=== PATIENT | female | born 1970 | race Caucasian/White ===

== ENCOUNTER 2022-03-07 13:39 | Inpatient (IN) ==
--- NOTE | 2022-03-07 13:58 | Emergency Department Note ---
Impression & Plan CHF (congestive heart failure), Pleural effusion, Acute respiratory failure with hypoxia, Hypertensive urgency ED Provider Note NAME: SIERRA DELCID AGE: 51 SEX: F : 1970 ARRIVES VIA: Walk-In INFORMANT: Patient ED PROVIDER(S): Sean Paz DO CHIEF COMPLAINT: shortness of breath HPI: Patient is a 51-year-old female who presents the ER referred in by cardiology. She was discharged from [place] around January 19 status post type a aortic dissection. She has been having a cough and shortness of breath which has been getting worse for the past 3 days. She had an echo scheduled today which was performed as an outpatient as well as a chest x-ray by cardiology which showed large pleural effusions and was referred in. She denies any chest pain at this time. Shortness of breath is worse with exertion. Denies any belly pain, nausea, vomiting, or diarrhea. No dysuria, urgency, or frequency. No other exacerbating or remitting factors. ROS: See above HPI for pertinent positives & negatives. A total of 10 systems reviewed and were otherwise negative. PAST MEDICAL HISTORY:See Below PAST SURGICAL HISTORY:See Below FAMILY HISTORY:See Below SOCIAL HISTORY:See Below HOME MEDICATIONS:See Below ALLERGIES:See Below VITALS:See Below PHYSICAL EXAMINATION: GENERAL: Sitting up in bed, alert, well appearing, well nourished, no distress, non-toxic EYE EXAM: normal conjunctiva. OROPHARYNX: mucous membranes are moist NECK: supple, no nuchal rigidity, no adenopathy, non-tender LUNGS: Diminished bilaterally. Normal chest wall mechanics HEART: no murmurs, S1 normal and S2 normal ABDOMEN: abdomen soft, non-tender, normo-active bowel sounds, no masses, no rebound or guarding. UPPER EXTREMITIES: upper extremities are grossly normal. LOWER EXTREMITIES: Mild pitting edema in the bilateral lower extremities left larger than right NEURO EXAM: Normal sensorium, cranial nerves II-XII grossly intact, normal speech, no gross weakness of arms, no gross weakness of legs. MEDICAL DECISION MAKING: Patient is a 51-year-old female with a recent dissection who presents the ER referred in by cardiology for bilateral pleural effusions and shortness of breath. Labs show no significant leukocytosis or anemia. INR was unremarkable. BMP with mild hypokalemia 3.3. LFTs bilirubin was unremarkable. Troponin was elevated at 14. Lipase was normal. COVID was negative. Chest x-ray shows bilateral pleural effusions. Left was significantly larger than the right. Patient was placed on Nitropaste and admitted to the hospital. Systolic pressures trended down to the 160s and 170s. Triage Nursing notes reviewed. Limited review of prior medical records performed Vital Signs: reviewed and remarkable for HTN Differential diagnosis: Differential diagnoses includes but is not limited to pneumonia, bronchitis, COPD/Asthma exacerbation, pneumothorax, pulmonary embolism, congestive heart failure, acute coronary syndrome ER treatment provided: See below Diagnostics interpreted by me: ECG: Sinus rhythm rate of 78 Right axis Septal Q waves QTC 396 In comparison to EKG performed in December septal Q waves are now present Cardiac Monitoring: An order was placed for continuous cardiac monitoring. The monitor shows a rate of 72 with sinus rhythm. Laboratory studies: As stated above and show below. Imaging studies: Bilateral pleural effusions Consultation(s): Discussed with Vijaya from [facility] Procedures: none Critical Care: None Past Med/Surg History Medical History (Updated 03/07/22 @ 20:50 by Sean Paz DO) Abdominal pain Acute otitis media Diverticular disease Hypertension Hypokalemia Hypothyroidism Hypothyroidism Kidney stones hx Morbid obesity with BMI of 40.0-44.9, adult Surgical History History of section History of colonoscopy History of dilatation and curettage History of hysterectomy History of oral surgery gum removal History of wisdom tooth extraction Family History Other Family history not known due to adoption Social History Smoking Status: Never smoker Tobacco Type: Cigarettes Second Hand Exposure: No; Hx Alcohol Use: No Hx Substance Use: No Preferred Language: Pashto Communication Ability: Effective 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 Machine 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: No Beliefs That Will Affect Care: None Current Living Situation: Spouse Current Living Situation Comment: Lives with and daughter Feels Safe at Home: Yes Assistive Devices: None Allergies Allergies Allergy/AdvReac Type Severity Reaction Status Date / Time No Known Allergies Allergy Unknown Verified 03/07/22 15:07 Home Meds Home Medications Medication Instructions Recorded Confirmed levothyroxine 125 mcg tablet 125 mcg PO QAM 11/10/18 03/07/22 levothyroxine 150 mcg tablet 150 mcg PO [facility] 11/10/18 03/07/22 lisinopril 10 mg tablet 10 mg PO [facility] 11/10/18 03/07/22 albuterol sulfate 90 mcg/actuation 2 puff inhalation Q4 PRN Wheezing 03/07/22 03/07/22 aerosol inhaler amoxicillin 500 mg capsule 500 mg PO [facility] 03/07/22 03/07/22 aspirin 81 mg tablet,delayed 81 mg PO [facility] 03/07/22 03/07/22 release calcium carbonate 500 mg calcium 500 mg PO Q OTHER DAY 03/07/22 03/07/22 (1,250 mg) chewable tablet (Calcium 500) codeine 10 mg-guaifenesin 100 mg/5 5 ml PO Q4 PRN Cough 03/07/22 03/07/22 mL oral liquid fluticasone propionate 50 2 spray intranasal [facility] 03/07/22 03/07/22 mcg/actuation nasal spray,suspension metoprolol tartrate 25 mg tablet 25 mg PO [facility] 03/07/22 03/07/22 potassium chloride 10 mEq 20 meq PO [facility] 03/07/22 03/07/22 tablet,extended release(part/cryst) torsemide 20 mg tablet 20 mg PO [facility] 03/07/22 03/07/22 Results & Data (ED) Vital Signs Vital Signs - 24 hr 03/07/22 13:41 03/07/22 14:27 03/07/22 15:00 Temperature 36.6 C Temperature Source Temporal Artery Scan Pulse Rate 86 Pulse Rate [Apical] 76 77 Respiratory Rate 24 18 Respiratory Effort / Characteristics Non-Labored Non-Labored Spontaneous Respiratory Depth Normal Normal Respiratory Pattern Regular Blood Pressure 198/139 H Blood Pressure [Left Arm] 203/141 H 176/143 H Blood Pressure Mean 158 Blood Pressure Mean [Left Arm] 161 154 Pulse Oximetry 91 98 Oxygen Delivery Method Room Air Room Air Sepsis Recent Fever Within 48 Hours No Sepsis New/Unexplained Change in Mental Status N/A Sepsis Action Taken by Nursing No Action Required Laboratory Data Result diagrams: 03/07/22 15:26 03/07/22 15:26 Lab Results 03/07/22 03/07/22 03/07/22 Range/Units 14:20 15:26 15:26 WBC 7.34 (4.8-10.8) K/ul RBC 4.08 (3.93-5.22) M/uL Hgb 11.8 L (12.0-16.0) g/dl Hct 36.7 (34.1-44.9) % MCV 90.0 (80.0-100.0) fL MCH 28.9 (25.0-34.0) pg MCHC 32.2 (32.0-36.0) g/dL RDW Std Deviation 45.1 (36.4-46.3) fL RDW Coeff of Jacinto 13.8 (11.5-14.5) % Plt Count 266 (130-400) K/uL MPV 9.5 (9.4-12.3) fL Immature Gran % (Auto) 0.3 % Neut % (Auto) 58.0 % Lymph % (Auto) 30.7 % Alcorn % (Auto) 5.6 % Eos % (Auto) 4.2 % Baso % (Auto) 1.2 % Neut # (Auto) 4.26 (1.4-6.5) K/uL Lymph # (Auto) 2.25 (1.2-3.4) K/uL Alcorn # (Auto) 0.41 (0.24-0.82) K/uL Eos # (Auto) 0.31 (0-0.50) K/uL Baso # (Auto) 0.09 (0-0.2) K/uL Immature Gran # (Auto) 0.02 (0.00-0.02) K/uL PT (9.0-12.0) Seconds INR (0.9-1.1) APTT (21.0-31.0) Seconds PTT Ratio Sodium 141 (136-145) mmol/L Potassium 3.3 L (3.5-5.1) mmol/L Chloride 103 (98-107) mmol/L Carbon Dioxide 31 (21-32) mmol/L Anion Gap 7 (3-11) BUN 8 (6-23) mg/dl Creatinine 0.98 (0.6-1.2) mg/dl Est Cr Clr Drug Dosing 90.3 ml/min Est GFR ( Amer) 78.0 ml/min Est GFR (Non-Af Amer) 67.3 ml/min BUN/Creatinine Ratio 8.2 L (10-20) Glucose 87 (70-99(Fasting)) mg/dl Calcium 9.4 (8.5-10.1) mg/dl Magnesium (1.7-2.4) mg/dl Total Bilirubin 0.4 (0.2-1.0) mg/dl AST 17 (13-39) U/L ALT 9 (7-52) U/L Alkaline Phosphatase 75 (34-104) U/L Lactate Dehydrogenase (86-244) U/L Troponin I High Sens 14.4 H D (0-14) pg/ml Total Protein 7.1 (6.0-8.3) gm/dl Albumin 3.8 (3.4-5.0) gm/dl Globulin 3.3 (2.5-4.0) gm/dl Albumin/Globulin Ratio 1.2 (0.9-2) Lipase 18 (11-82) U/L SARS-CoV-2, RNA, NAAT NEGATIVE (NEGATIVE) 03/07/22 03/07/22 03/07/22 Range/Units 15:26 15:26 15:28 WBC (4.8-10.8) K/ul RBC (3.93-5.22) M/uL Hgb (12.0-16.0) g/dl Hct (34.1-44.9) % MCV (80.0-100.0) fL MCH (25.0-34.0) pg MCHC (32.0-36.0) g/dL RDW Std Deviation (36.4-46.3) fL RDW Coeff of Jacinto (11.5-14.5) % Plt Count (130-400) K/uL MPV (9.4-12.3) fL Immature Gran % (Auto) % Neut % (Auto) % Lymph % (Auto) % Alcorn % (Auto) % Eos % (Auto) % Baso % (Auto) % Neut # (Auto) (1.4-6.5) K/uL Lymph # (Auto) (1.2-3.4) K/uL Alcorn # (Auto) (0.24-0.82) K/uL Eos # (Auto) (0-0.50) K/uL Baso # (Auto) (0-0.2) K/uL Immature Gran # (Auto) (0.00-0.02) K/uL PT 11.5 (9.0-12.0) Seconds INR 1.1 (0.9-1.1) APTT 29.2 (21.0-31.0) Seconds PTT Ratio 1.1 Sodium (136-145) mmol/L Potassium (3.5-5.1) mmol/L Chloride (98-107) mmol/L Carbon Dioxide (21-32) mmol/L Anion Gap (3-11) BUN (6-23) mg/dl Creatinine (0.6-1.2) mg/dl Est Cr Clr Drug Dosing ml/min Est GFR ( Amer) ml/min Est GFR (Non-Af Amer) ml/min BUN/Creatinine Ratio (10-20) Glucose (70-99(Fasting)) mg/dl Calcium (8.5-10.1) mg/dl Magnesium 2.0 (1.7-2.4) mg/dl Total Bilirubin Cancelled (0.2-1.0) mg/dl AST (13-39) U/L ALT (7-52) U/L Alkaline Phosphatase (34-104) U/L Lactate Dehydrogenase 274 H (86-244) U/L Troponin I High Sens (0-14) pg/ml Total Protein Cancelled (6.0-8.3) gm/dl Albumin Cancelled (3.4-5.0) gm/dl Globulin (2.5-4.0) gm/dl Albumin/Globulin Ratio (0.9-2) Lipase (11-82) U/L SARS-CoV-2, RNA, NAAT (NEGATIVE) Administered Medications Discontinued Medications Labetalol HCl (Labetalol Hcl Iv 5 Mg/Ml 20ml) 20 mg IV NOW STA Stop: 03/07/22 16:53 Last Admin: 03/07/22 17:03 Dose: 20 mg Documented By: ASHLEY Co-signed By: ERICA Lisinopril (Lisinopril 10 Mg Tab) 10 mg PO NOW STA Stop: 03/07/22 16:06 Last Admin: 03/07/22 16:17 Dose: 10 mg Documented By: ASHLEY Metoprolol Tartrate (Metoprolol Tartrate 25 Mg Tab) 25 mg PO ONE ONE Stop: 03/07/22 16:00 Last Admin: 03/07/22 16:07 Dose: 25 mg Documented By: ASHLEY Nitroglycerin (Nitroglycerin 2% Ointment 30gm Tube) 2 inch EXT Q6H TODD Stop: 04/06/22 14:14 Last Admin: 03/07/22 14:17 Dose: 2 inch Documented By: OL Imaging Data Radiologist's Impression: Chest X-Ray 03/07/22 13:59 XR chest 1V portable CLINICAL HISTORY: Chest Pain. COMPARISON STUDY: 01/07/2022 TECHNIQUE: 1 view of the chest FINDINGS: Single frontal view of the chest demonstrates the heart to be enlarged status post interval cardiothoracic surgery. There has been interval development of a large left pleural effusion with left lower lobe and lingular atelectasis/collapse. The right hemithorax is clear with no right pleural effusion. There is no evidence for vascular congestion. There is no acute osseous pathology. IMPRESSION: 1. Status post cardiothoracic surgery with large left pleural effusion. 2. Associated left lower lobe and left lingular atelectasis/collapse. ACT 112: Negative or not required by law. Electronically signed by: Dayo Hester M.D. 03/07/2022 2:28 PM Discharge Plan Visit Data Chief Complaint: Referred by Doctor Stated Complaint: FLUID IN LUNGS ED Provider: Sean Paz Discharge Problem: CHF (congestive heart failure), Pleural effusion, Acute respiratory failure with hypoxia, Hypertensive urgency Patient Disposition: Admitted As Inpatient Discharge Instructions Interventions: ED Discharge Assessment Last Done: 03/07/22 18:18
[2022-03-07] MEDS ORDERED: NITROGLYCERIN 2% OINTMENT 30GM TUBE EXT SCH (14:15)
--- NOTE | 2022-03-07 14:29 | XRay Report ---
XR chest 1V portable CLINICAL HISTORY: Chest Pain. COMPARISON STUDY: 01/07/2022 TECHNIQUE: 1 view of the chest FINDINGS: Single frontal view of the chest demonstrates the heart to be enlarged status post interval cardiotho racic surgery. There has been interval development of a large left pleural effusion with left lower l obe and lingular atelectasis/collapse. The right hemithorax is clear with no right pleural effusion. There is no evidence for vascular congestion. There is no acute osseous pathology. IMPRESSION: 1. Status post cardiothoracic surgery with large left pleural effusion. 2. Associated left lower lobe and left lingular atelectasis/collapse. ACT 112: Negative or not required by law. Electronically signed by: Dayo Hester M.D. 03/07/2022 2:28 PM
[2022-03-07 15:36] LABS: Basophils # (auto) 0.09 K/uL (0-0.2); Basophils % (auto) 1.2 %; Eosinophils # (auto) 0.31 K/uL (0-0.50); Eosinophils % (auto) 4.2 %; Hematocrit (blood only) 36.7 % (34.1-44.9); Hemoglobin 11.8 g/dl (12.0-16.0); Immature Granulocytes # (auto) 0.02 K/uL (0.00-0.02); Immature Granulocytes % (auto) 0.3 %; Lymphocytes # (auto) 2.25 K/uL (1.2-3.4); Lymphocytes % (auto) 30.7 %; Mean Corpuscular Hemoglobin 28.9 pg (25.0-34.0); Mean Corpuscular Hgb Conc 32.2 g/dL (32.0-36.0); Mean Platelet Volume 9.5 fL (9.4-12.3); Monocytes # (auto) 0.41 K/uL (0.24-0.82); Monocytes % (auto) 5.6 %; Neutrophils # (auto) 4.26 K/uL (1.4-6.5); Platelet Count 266 K/uL (130-400); RDW Coefficient of Variation 13.8 % (11.5-14.5); RDW Standard Deviation 45.1 fL (36.4-46.3); Red Blood Count 4.08 M/uL (3.93-5.22); White Blood Count 7.34 K/ul (4.8-10.8)
--- NOTE | 2022-03-07 15:36 | History & Physical Report ---
Date of Service March 07, 2022 Assessment & Plan (1) Dissecting aneurysm of thoracic aorta, [place] type A: (2) Hypertensive urgency: (3) Pleural effusion: (4) Hypokalemia: (5) Acute otitis media: (6) Hypothyroidism: Plan Ms. Delores Watt is a 51 year old female who presented to the [facility] ED by the recommendation of Dr. Lilly who she saw for outpatient follow up today s/p AAA repair in [place] on 01/07. She was noted to have a large left pleural effusion and pericardial effusion on CXR. 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 Plan for thoracentesis and PCU admission. Hold diuretics to protect preload. Post op Aortic Dissection (01/07): -Transferred emergently to [place]; thoracic and aortic AAA including the arch repaired on 01/07/22; she was discharged on 01/19/22 -Was noted to have cough and SOB x 3 days; went to outpatient Cardiology for follow up and repeat ECHO today (03/07) -EF on ECHO 03/07 60-64% -Continue ASA 81 mg now -Consult Cardiology: Discussed with Dr. Le; hold on diuretics and no Nitro paste to protect Preload -Trend Troponins: Initial 69, second 14. -Mg+ level ordered and pending Pleural Effusion: -Repeat ECHO outpatient today revealed large left pleural effusion -Pulmonary consultation ordered: Discussed with Dr. Ward who evaluated and spoke with the patient; plan for bedside thoracentesis once BP more stable (currently 176/143). -Hgb holding 11.8 -Repeat CXR in AM HTN urgency: -B/P 178/129 on admission -Received AM Metoprolol and Lisinopril PO without improvement. -Labetalol 20 mg IV ordered once. Hypokalemia: -K+ 3.3 on admission; ordered Potassium 40mEq PO Once; will resume home meds in AM. -Takes Lasix at home; recently switched to Torsemide; however has not started taking it yet. -Diuretics on hold for now. Cardiology to reassess Hypothyroidism: Continue Synthroid as prescribed Acute Otitis Media: -Right ear. -Taking Amoxicillin 500 mg PO BID x 10 days; due to complete course 03/08. Disposition: -PCP: Dr. Jovel -Code Status: Full Code -VTE Prophylaxis: SCD's for now; reeval appropriateness post thoracentesis -Plan to return home post discharge -freezer person: Shin Watt: [phone] Admission and Anticipated Discharge Date Admission Date: Attending Addendum: care coordinated with SHAWN Love please refer to her notes for full details, I agree with her notes patient seen and examined, records reviewed by myself as well on exam, patient seen resting in bed, sitting up, on 4 L of oxygen via nasal cannula Not in distress, speaks in sentences with no effort accessory muscle use Denies active shortness of breath, chest pain, palpitations, dizziness no other symptoms VS noted and reviewed oriented x3, not in distress, speaks in sentences with no effort nor accessory muscle use normal rate, regular rhythm, no murmurs Decreased breath sounds left lung fonseca, clear on the right non distended, soft, nontender Trace bipedal edema, erythema, warmth no neuro deficits WBC 7.3 Hg 11.8 Potassium 3.3 Crea 0.9 ASSESSMENT AND PLAN 51-year-old female with history of recent thoracic arctic aneurysm repair last December 2021 at [facility], hypertension, obstructive sleep apnea Presenting with left pleural effusion and large pericardial effusion. Left pleural effusion, acute hypoxic respiratory failure Large pericardial effusion Recent thoracic aortic aneurysm repair January 07, 2022, [facility] -- Pulmonary service consulted for possible thoracentesis -- Blood pressure stable, echocardiogram no cardiac tamponade Hold off on usual torsemide or additional diuretics to prevent hypotension in the setting of large pericardial effusion Cardiology service consulted, will likely need pericardiocentesis other diagnoses and plan of care as per SHAWN Love's notes, Marques Jimenez MD History of Present Illness Chief Complaint: shortness of breath and swelling Primary Care Provider: Bronson Jovel MD Ms. Delores Watt is a 51 year old female who presented to the [facility] ED by the recommendation of Dr. Lilly who she saw for outpatient follow up today. She recently presented to the [facility] with syncope and was emergently transferred to [facility] for cardiac tamponade and thoracic and aortic AAA repair. Post-operatively she developed an ileus and required additional hospitalization, but was discharged on January 19, 2022. She has been doing well post-operatively and completed her PO Amiodarone. She started to have a cough and SOB over the last 3 days; she had a repeat ECHO today a large left pleural effusion and large pericardial effusion was noted. Her EF was 60-64% and no tamponade was noted . She has been having increasing difficulty with her fluid status and has not been responding to her Lasix as well as anticipated; so she was just switched to Torsemide a few days ago; however, has not started taking it yet. In the ED she is hypertensive 176/143 and 91% on RA. Additional PMH includes Hypothyroidism, AAA, HTN, and ANNABELLE. She currently denies BERGER, dizziness, CP, palpitations, SOB, use of accessory muscle use, pursed lip breathing, N/V/D. Case discussed as outlined above with ICU/Pulmonary Dr. Ward and Cardiology Dr. Le. Please see A/P for further details. Allergies Allergy/AdvReac Type Severity Reaction Status Date / Time No Known Allergies Allergy Unknown Verified 03/07/22 15:07 Home Medications Medication Instructions Recorded Confirmed Type levothyroxine 125 mcg tablet 125 mcg PO QAM 11/10/18 03/07/22 History levothyroxine 150 mcg tablet 150 mcg PO QAM 11/10/18 03/07/22 History lisinopril 10 mg tablet 10 mg PO QAM 11/10/18 03/07/22 History albuterol sulfate 90 mcg/actuation 2 puff inhalation Q4 PRN Wheezing 03/07/22 03/07/22 History aerosol inhaler amoxicillin 500 mg capsule 500 mg PO [facility] 03/07/22 03/07/22 History aspirin 81 mg tablet,delayed 81 mg PO QAM 03/07/22 03/07/22 History release calcium carbonate 500 mg calcium 500 mg PO Q OTHER DAY 03/07/22 03/07/22 History (1,250 mg) chewable tablet (Calcium 500) codeine 10 mg-guaifenesin 100 mg/5 5 ml PO Q4 PRN Cough 03/07/22 03/07/22 History mL oral liquid fluticasone propionate 50 2 spray intranasal [facility] 03/07/22 03/07/22 History mcg/actuation nasal spray,suspension metoprolol tartrate 25 mg tablet 25 mg PO [facility] 03/07/22 03/07/22 History potassium chloride 10 mEq 20 meq PO QAM 03/07/22 03/07/22 History tablet,extended release(part/cryst) torsemide 20 mg tablet 20 mg PO QAM 03/07/22 03/07/22 History Past Med/Surg History Medical History (Updated 03/07/22 @ 16:43 by SHAWN Zhou) Abdominal pain Acute otitis media Diverticular disease Hypertension Hypokalemia Hypothyroidism Hypothyroidism Kidney stones hx Morbid obesity with BMI of 40.0-44.9, adult Surgical History History of section History of colonoscopy History of dilatation and curettage History of hysterectomy History of oral surgery gum removal History of wisdom tooth extraction Family History Other Family history not known due to adoption Social History Smoking Status: Never smoker Tobacco Type: Cigarettes Second Hand Exposure: No; Hx Alcohol Use: No Hx Substance Use: No Preferred Language: Lao Communication Ability: Effective Conveyor Installer Required: No Beliefs That Will Affect Care: None Current Living Situation: Spouse Current Living Situation Comment: Lives with and daughter Feels Safe at Home: Yes Assistive Devices: None Review of Systems Review of Systems: Neuro: (-) Falls, trauma, slurred speech HEENT: (-) BERGER, dizziness, dysphagia, visual or auditory changes CV: (-) CP, palpitations, swelling (-) pursed lip or accessory muscle breathing Resp: (-) SOB GI: (-) appetite changes, N/V/D, bowel changes : (-) urinary changes Skin: (-) rashes Psych: (-) anxiety, depression Physical Exam Physical Exam: Neuro: AAOx4, PERRLA, no aphagia, memory changes, CNII-XII grossly intact HEENT: head normocephalic, moist mucus membranes CV: S1/S2, (-) M/G/R, (-) edema, cap refill < 3 seconds (-) JVD Resp: On 2 LNC; minimal movement left lung fonseca, right lung CTA. GI: Abdomen S/NT/ND, Ax4 bowel sounds, (-) CVA tenderness Musculoskeletal: 5/5 B/L UE strength, 5/5 B/L LE strength. No gait disturbance Skin: (-) rashes , (-) erythema. mid sternal incision Psych: euthymic mood Results & Data Results & Data ([facility]) Vital Signs (Past 12 Hours) Vital Signs Temp Pulse Pulse Resp BP BP Pulse Ox 03/07/22 15:00 77 18 176/143 H 98 03/07/22 14:27 76 203/141 H 03/07/22 13:41 36.6 C 86 24 198/139 H 91 O2 Del Method 03/07/22 15:00 Room Air 03/07/22 14:27 03/07/22 13:41 Room Air Laboratory Results Short CBC 03/07/22 Range/Units 15:26 WBC 7.34 (4.8-10.8) K/ul Hgb 11.8 L (12.0-16.0) g/dl Hct 36.7 (34.1-44.9) % Plt Count 266 (130-400) K/uL BMP 03/07/22 15:26 Sodium 141 Potassium 3.3 L Chloride 103 Carbon Dioxide 31 BUN 8 Creatinine 0.98 Glucose 87 Calcium 9.4 Liver Function 03/07/22 Range/Units 15:26 Total Bilirubin 0.4 (0.2-1.0) mg/dl AST 17 (13-39) U/L ALT 9 (7-52) U/L Alkaline Phosphatase 75 (34-104) U/L Albumin 3.8 (3.4-5.0) gm/dl Diagnostic Findings Chest X-Ray 03/07/22 13:59 XR chest 1V portable CLINICAL HISTORY: Chest Pain. COMPARISON STUDY: 01/07/2022 TECHNIQUE: 1 view of the chest FINDINGS: Single frontal view of the chest demonstrates the heart to be enlarged status post interval cardiothoracic surgery. There has been interval development of a large left pleural effusion with left lower lobe and lingular atelectasis/collapse. The right hemithorax is clear with no right pleural effusion. There is no evidence for vascular congestion. There is no acute osseous pathology. IMPRESSION: 1. Status post cardiothoracic surgery with large left pleural effusion. 2. Associated left lower lobe and left lingular atelectasis/collapse. ACT 112: Negative or not required by law. Electronically signed by: Dayo Hester M.D. 03/07/2022 2:28 PM ECG Additional Comments: 78 BPM P-R Int : 172 ms QRS Dur : 090 ms QT Int : 348 ms QTc Int : 396 ms Normal sinus rhythm Possible Left atrial enlargement Septal infarct , age undetermined Poor R wave progression, consider anterior [place] vs. lead placement vs. LVH Abnormal ECG Poor R wave progression is now present Code Status & VTE Plan Code Status Full code as discussed with pt VTE Prophylaxis Plan VTE Prophylaxis will be ordered: Yes
[2022-03-07 15:59] LABS: Albumin Globulin Ratio 1.2 (0.9-2); Albumin Level 3.8 gm/dl (3.4-5.0); BUN Creatinine Ratio 8.2 (10-20); Bilirubin,Total 0.4 mg/dl (0.2-1.0); Calcium 9.4 mg/dl (8.5-10.1); Creatinine Clr Calc Pharmacy 90.3 ml/min; Est GFR (Non-African American) 67.3 ml/min; Globulin 3.3 gm/dl (2.5-4.0); Potassium 3.3 mmol/L (3.5-5.1); Total Protein 7.1 gm/dl (6.0-8.3)
[2022-03-07] MEDS ORDERED: METOPROLOL TARTRATE 25 MG TAB PO ONE (15:59)
[2022-03-07 16:01] LABS: Troponin I High Sensitivity 14.4 pg/ml (0-14)
[2022-03-07] MEDS ORDERED: lisinopril 10 MG TAB PO STA (16:05)
--- NOTE | 2022-03-07 16:06 | Electrocardiogram Report ---
Test Reason : Blood Pressure : / mmHG Vent. Rate : 078 BPM Atrial Rate : 078 BPM P-R Int : 172 ms QRS Dur : 090 ms QT Int : 348 ms P-R-T Axes : 037 233 054 degrees QTc Int : 396 ms Poor data quality, interpretation may be adversely affected Normal sinus rhythm Possible Left atrial enlargement Septal infarct , age undetermined Poor R wave progression, consider anterior [place] vs. lead placement vs. LVH Abnormal ECG When compared with ECG of 07-JAN-2022 14:25, Poor R wave progression is now present Confirmed by Amilcar Taveras ([id number]) on 03/07/2022 4:06:18 PM Referred By: Shaquille Lilly Confirmed By:Amilcar Taveras
--- NOTE | 2022-03-07 16:16 | Pulmonary Consultation ---
Date of Consultation March 07, 2022 Assessment & Plan (1) Pleural effusion: (2) Acute respiratory failure with hypoxia: (3) ANNABELLE (obstructive sleep apnea): (4) Hypertensive urgency: Plan Chest x-ray 03/07/2022 personally reviewed: Portable film, large left-sided pleural effusion appreciated, increased cardiac silhouette -- Left-sided pleural effusion In a patient who recently had cardiothoracic surgery possibility of it being postcardiotomy pleural effusion is there Patient denies any fever or chills She is not on any blood thinners She is agreeable for thoracentesis -- Acute respiratory failure with hypoxia On 2 L nasal cannula Likely secondary to pleural effusion Keep O2 saturation between 90-92% -- ANNABELLE Patient is unable to tolerate CPAP Parts of compliance expanded the patient in depth --Hypertensive urgency Patient does not have any symptoms Her diastolic blood pressure is in 130s She did not take her blood pressure medications at home. Recommend to give home blood pressure medication and if there is no improvement to give IV labetalol 20 mg. Plan: For thoracentesis today once the blood pressure is better controlled Risk benefit of the procedure expanded the patient in the presence of her . They understand and agree to go ahead with the procedure Case was discussed with Ene Love Please note the above document was generated using voice recognition software. It may contain grammatical, syntax or spelling errors.Any formal questions or concerns about the content, text or information contained within the body of this dictation should be directly addressed to the provider for clarification. 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 Patient's blood pressure was 170/134. Saturating 97% on 2 L nasal cannula. Patient did not take her blood pressure medication today as she directly went to the service representative office in the morning. Patient denies any issues when it comes to her breathing. She has noticed some shortness of breath which has been going on since the surgery. She is unsure if there is any worsening in her breathing Denies any chest pain. Did have recent right ear infection has been on antibiotics for it. Denies any significant cough. No dysuria, diarrhea. No fever or chills. No headache, no blurry vision Social history: Lifetime non-smoker Allergies Allergy/AdvReac Type Severity Reaction Status Date / Time No Known Allergies Allergy Unknown Verified 03/07/22 15:07 Home Medications Medication Instructions Recorded Confirmed Type levothyroxine 125 mcg tablet 125 mcg PO QAM 11/10/18 03/07/22 History levothyroxine 150 mcg tablet 150 mcg PO QAM 11/10/18 03/07/22 History lisinopril 10 mg tablet 10 mg PO QAM 11/10/18 03/07/22 History albuterol sulfate 90 mcg/actuation 2 puff inhalation Q4 PRN Wheezing 03/07/22 03/07/22 History aerosol inhaler amoxicillin 500 mg capsule 500 mg PO AMHS 03/07/22 03/07/22 History aspirin 81 mg tablet,delayed 81 mg PO QA 03/07/22 03/07/22 History release calcium carbonate 500 mg calcium 500 mg PO Q OTHER DAY 03/07/22 03/07/22 History (1,250 mg) chewable tablet (Calcium 500) codeine 10 mg-guaifenesin 100 mg/5 5 ml PO Q4 PRN Cough 03/07/22 03/07/22 History mL oral liquid fluticasone propionate 50 2 spray intranasal [facility] 03/07/22 03/07/22 History mcg/actuation nasal spray,suspension metoprolol tartrate 25 mg tablet 25 mg PO [facility] 03/07/22 03/07/22 History potassium chloride 10 mEq 20 meq PO QAM 03/07/22 03/07/22 History tablet,extended release(part/cryst) torsemide 20 mg tablet 20 mg PO QAM 03/07/22 03/07/22 History Patient History Medical History Abdominal pain Diverticular disease Hypertension Hypothyroidism Kidney stones hx Morbid obesity with BMI of 40.0-44.9, adult Surgical History History of section History of colonoscopy History of dilatation and curettage History of hysterectomy History of oral surgery gum removal History of wisdom tooth extraction Family History Other Family history not known due to adoption Social History Smoking Status: Former smoker Tobacco Type: Cigarettes Second Hand Exposure: No; Hx Alcohol Use: Yes Alcohol type: wine Hx Substance Use: No Preferred Language: Malawian Communication Ability: Effective Strategy Director Required: No Beliefs That Will Affect Care: None Current Living Situation: Spouse and Family Current Living Situation Comment: Lives with and daughter Feels Safe at Home: Yes Assistive Devices: Glasses Review of Systems Review of Systems: All systems reviewed & are unremarkable except as noted in HPI & below Physical Exam Physical Exam: Constitutional: No acute distress HEENT: EOMI, PERRLA Respiratory system: Decreased air entry in the left side, no wheeze, no rhonchi, mild crackles left lower lobe CVS: S1-S2 positive, no murmurs or gallops, distant heart sounds Abdomen: Soft, nontender, nondistended, positive bowel sounds x4, obese Extremities: +2 pulses bilaterally radialis/ dorsalis pedis, no cyanosis, +1 pitting edema bilateral lower extremity Neuro: Awake alert oriented x3 Psych: Normal mood and affect G/U: No Newman Results & Data Results & Data ([facility]) Vital Signs (Past 12 Hours) Vital Signs Temp Pulse Pulse Resp BP BP Pulse Ox 03/07/22 15:00 77 18 176/143 H 98 03/07/22 14:27 76 203/141 H 03/07/22 13:41 36.6 C 86 24 198/139 H 91 O2 Del Method 03/07/22 15:00 Room Air 03/07/22 14:27 03/07/22 13:41 Room Air Laboratory Results 03/07/22 15:26 03/07/22 15:26 PG Care Time/CCT Total # of Minutes Spent Total Time Spent with Patient: Total time spent is greater than 50% in coordination of care (as documented) at patient's floor/unit and/or counseling patient: Coding Level of Care Code 23720 Initial Inpt Care Lvl 3 Diagnoses Pleural effusion J90 Acute respiratory failure with hypoxia J96.01 ANNABELLE (obstructive sleep apnea) G47.33 Hypertensive urgency I16.0
[2022-03-07] MEDS ORDERED: LABETALOL HCL IV 5 MG/ML 20ML IV STA (16:52)
[2022-03-07 17:04] LABS: INR 1.1 (0.9-1.1); Partial Thromboplastin Ratio 1.1; Partial Thromboplastin Time 29.2 Seconds (21.0-31.0); Prothrombin Time 11.5 Seconds (9.0-12.0)
--- NOTE | 2022-03-07 18:36 | Procedure Note ---
Procedure Note Date of Service March 07, 2022 Note Procedure: Diagnostic therapeutic ultrasound-guided catheter thoracentesis Ordnance Mechanic: Dr. Flo Ward Indication: Left-sided pleural effusion Consent: Signed by patient and verified with timeout prior to procedure Anesthesia: 1% lidocaine without epinephrine local. Procedure: Consent was verified and timeout performed. Appropriate imaging studies were reviewed prior to the procedure. Patient was placed in a seated position and limited thoracic ultrasound was performed of the left chest. See separate imaging. Appropriate site above the diaphragm for thoracentesis was selected. The skin was prepped and draped in normal sterile fashion. Lidocaine was used for local analgesia. Fluid was aspirated via the finder needle. A small skin orestes was made with the scalpel and the catheter over the needle apparatus was advanced over the rib into the pleural space. Using the syringe one-way valve system, a total of 1500 mL's of serosanguineous fluid was removed. The catheter was removed and observed to be intact. A sterile dressing was applied. Post procedure chest x-ray was ordered. Good lung sliding was appreciated postprocedure on ultrasound Fluid was sent for labs, culture and cytology. Complications: None Blood loss: None Coding CPT Codes Pulmonary/Thoracic - Pulmonary and Thoracic: 28040 Thoracentesis w imaging ([id number]) [facility] [place] Procedure Codes (Charges) Pulmonary/Thoracic Procedure 1: Pulmonary and Thoracic: 92418 Thoracentesis w imaging
[2022-03-07] MEDS ORDERED: ALBUTEROL HFA 8 GM INHALER INH PRN (18:39)
[2022-03-07] MEDS ORDERED: POTASSIUM CHLORIDE CRTAB 20 MEQ TABCR PO STA (18:39)
[2022-03-07] MEDS ORDERED: ACETAMINOPHEN 325 MG TAB PO PRN (18:39)
[2022-03-07] MEDS ORDERED: MAGNESIUM HYDROXIDE SUSP 30 ML UDC PO PRN (18:39)
[2022-03-07] MEDS ORDERED: D5W AND 1/2NSS 1,000 ML IV SCH (18:39)
[2022-03-07] MEDS ORDERED: POLYETHYLENE (MIRALAX) 17 GM PACK PO PRN (18:39)
[2022-03-07] MEDS ORDERED: ONDANSETRON INJ 2 MG/ML 2 ML VIAL IV PRN (18:39)
[2022-03-07] MEDS ORDERED: ALUMINUM/MAGNESIUM SUSP 30 ML UDC PO PRN (18:39)
[2022-03-07] MEDS ORDERED: ICU PROTOCOL FOR HYPERGLYCEMIA PRN (18:39)
[2022-03-07 19:23] LABS: Total Protein Pleural Fluid 4.9 gm/dl
--- NOTE | 2022-03-07 19:29 | XRay Report ---
XR chest 1V portable at 7:05 PM CLINICAL HISTORY: S/P Thoracentesis. Evaluate for pneumothorax COMPARISON STUDY: 03/07/2022 at 2:21 PM TECHNIQUE: 1 view of the chest FINDINGS: Single frontal view of the chest demonstrates the heart to again be enlarged status post previous car diothoracic surgery. The patient is status post left thoracentesis with interval decrease in large le ft pleural effusion. There is persistent left lower lobe and lingular atelectasis. The right hemithorax is clear. There is no evidence for right pleural effusion. There is no evidence for vascular congestion. There is no acute osseous pathology. IMPRESSION: 1. Status post left thoracentesis with decreased left pleural effusion. 2. No evidence for pneumothorax. 3. Persistent left lower lobe and lingular atelectasis/collapse. ACT 112: Negative or not required by law. Electronically signed by: Dayo Hester M.D. 03/07/2022 7:27 PM
[2022-03-07 19:50] LABS: Appearance Pleural Fluid Cloudy; Color Pleural Fluid Amber; Lymphocytes, Fluid 89 %; Mono,Macrophage,Mesothelial 7 %; Neutrophils, Fluid 4 %; RBC Pleural Fluid (A) 27000 /uL; Source Pleural Fluid L.LUNG; WBC Pleural Fluid (A) 1494 /uL
[2022-03-07] MEDS: FLUTICASONE PROPIONATE NA SPR 16 GM BTL SCH (20:55)
[2022-03-07] MEDS: AMOXICILLIN 500 MG CAP PO SCH (21:01)
[2022-03-07] MEDS: ASPIRIN 81 MG ECTAB PO SCH (21:01)
[2022-03-07] MEDS: METOPROLOL TARTRATE 25 MG TAB PO SCH (21:02)
[2022-03-07] MEDS: CALCIUM CARBONATE 500 MG CHEWABLE TAB PO SCH (21:02)
[2022-03-08] MEDS: LEVOTHYROXINE SODIUM 125 MCG TABLET PO SCH (06:03)
[2022-03-08] MEDS: LEVOTHYROXINE SODIUM 150 MCG TABLET PO SCH (06:04)
[2022-03-08 07:06] LABS: Basophils # (auto) 0.08 K/uL (0-0.2); Basophils % (auto) 1.1 %; Eosinophils # (auto) 0.24 K/uL (0-0.50); Eosinophils % (auto) 3.3 %; Hematocrit (blood only) 33.1 % (34.1-44.9); Hemoglobin 10.3 g/dl (12.0-16.0); Immature Granulocytes # (auto) 0.02 K/uL (0.00-0.02); Immature Granulocytes % (auto) 0.3 %; Lymphocytes # (auto) 1.83 K/uL (1.2-3.4); Lymphocytes % (auto) 25.2 %; Mean Corpuscular Hemoglobin 28.9 pg (25.0-34.0); Mean Corpuscular Hgb Conc 31.1 g/dL (32.0-36.0); Mean Platelet Volume 9.2 fL (9.4-12.3); Monocytes # (auto) 0.48 K/uL (0.24-0.82); Monocytes % (auto) 6.6 %; Neutrophils % (auto) 63.5 %; Platelet Count 221 K/uL (130-400); RDW Standard Deviation 47.8 fL (36.4-46.3); Red Blood Count 3.56 M/uL (3.93-5.22); White Blood Count 7.25 K/ul (4.8-10.8)
[2022-03-08 07:32] LABS: BUN Creatinine Ratio 10.2 (10-20); Calcium 9.1 mg/dl (8.5-10.1); Creatinine Clr Calc Pharmacy 73.8 ml/min; Est GFR (African American) 62.3 ml/min; Est GFR (Non-African American) 53.7 ml/min; Potassium 3.8 mmol/L (3.5-5.1)
--- NOTE | 2022-03-08 08:28 | Cardiology Consultation ---
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 We will then monitor for reaccumulation on telemetry. Also repeat echocardiogram in the a.m. to evaluate pericardial effusion status postthoracentesis to look for any possible hemodynamic changes She will also be started on colchicine and ibuprofen to aid in resolution of the pericardial effusion History of Present Illness Reason for Consultation: Pleural and pericardial effusions Requesting Physician: LILO Attending Physician: Wu Shepherd MD History of Present Illness Late entry for consultation performed 03/07/2022 at 1700 in the emergency department. Mrs. Watt is a very pleasant 51-year-old woman who was sent to the emergency department from our office today after echocardiogram and chest x-ray revealed large pericardial effusion and large left-sided pleural effusion.She initially presented to [facility] on January 07, 2022 with a spontaneous [place] type a dissection of her ascending aorta complicated by hemopericardium and hypotension. She was emergently transferred to [facility] where she underwent emergent cardiac surgery with replacement of the ascending aorta and Kevin arch with a 28 mm tube graft. Since then she has been following with Dr. Yusuf. She contacted our office on 03/05/2022 with complaints of increasing shortness of breath and lower extremity edema. 2D echocardiogram was performed which showed a large pericardial effusion along with a left pleural effusion. Chest x-ray then confirmed a large left pleural effusion and she was sent to [facility] for pericardio centesis. Luckily, there were no signs of tamponade on echocardiogram. Currently, she states that she feels short of breath at rest but otherwise well. She has been taking all of her medications as directed without issue. Allergies Allergy/AdvReac Type Severity Reaction Status Date / Time No Known Allergies Allergy Unknown Verified 03/07/22 15:07 Home Medications Medication Instructions Recorded Confirmed Type levothyroxine 125 mcg tablet 125 mcg PO QAM 11/10/18 03/07/22 History levothyroxine 150 mcg tablet 150 mcg PO QAM 11/10/18 03/07/22 History lisinopril 10 mg tablet 10 mg PO QAM 11/10/18 03/07/22 History albuterol sulfate 90 mcg/actuation 2 puff inhalation Q4 PRN Wheezing 03/07/22 03/07/22 History aerosol inhaler amoxicillin 500 mg capsule 500 mg PO [facility] 03/07/22 03/07/22 History aspirin 81 mg tablet,delayed 81 mg PO QAM 03/07/22 03/07/22 History release calcium carbonate 500 mg calcium 500 mg PO Q OTHER DAY 03/07/22 03/07/22 History (1,250 mg) chewable tablet (Calcium 500) codeine 10 mg-guaifenesin 100 mg/5 5 ml PO Q4 PRN Cough 03/07/22 03/07/22 History mL oral liquid fluticasone propionate 50 2 spray intranasal [facility] 03/07/22 03/07/22 History mcg/actuation nasal spray,suspension metoprolol tartrate 25 mg tablet 25 mg PO [facility] 03/07/22 03/07/22 History potassium chloride 10 mEq 20 meq PO QAM 03/07/22 03/07/22 History tablet,extended release(part/cryst) torsemide 20 mg tablet 20 mg PO QAM 03/07/22 03/07/22 History Patient History Medical History (Updated 03/08/22 @ 09:15 by Jose Alberto Le DO) Abdominal pain Acute otitis media Diverticular disease Hypertension Hypokalemia Hypothyroidism Hypothyroidism Kidney stones hx Morbid obesity with BMI of 40.0-44.9, adult Surgical History History of section History of colonoscopy History of dilatation and curettage History of hysterectomy History of oral surgery gum removal History of wisdom tooth extraction Family History Other Family history not known due to adoption Social History Smoking Status: Never smoker Tobacco Type: Cigarettes Second Hand Exposure: No; Hx Alcohol Use: No Hx Substance Use: No Preferred Language: Latvian Communication Ability: Effective 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 No acute distress. HEENT: Normocephalic, atraumatic. Pupils equal, round and reactive to light and accommodation. Extraocular muscles are intact. Anicteric sclera. Moist mucous membranes. Neck: No JVD. No bruit. Cardiovascular: Regular but distant. No S-4. Normal S-1 and S-2. No S-3. No murmurs, rubs or gallops. Pulmonary: Poor air movement bilaterally Abdomen: Bowel sounds x 4, soft. No rebound, guarding or tenderness. No organomegaly. Extremities: No clubbing, cyanosis or edema. +2 pedal pulses bilaterally. Skin: Warm and dry. Results & Data ([facility]) Vital Signs (Past 12 Hours) Vital Signs Temp Pulse Pulse Resp BP Pulse Ox O2 Del Method 03/08/22 07:00 71 03/08/22 07:00 36.9 C 88 16 128/77 93 Nasal Cannula 03/08/22 03:53 36.8 C 73 12 143/84 H 93 Nasal Cannula 03/07/22 22:30 78 03/07/22 22:38 36.8 C 74 18 125/83 90 Nasal Cannula O2 Flow Rate 03/08/22 07:00 03/08/22 07:00 4 03/08/22 03:53 4 03/07/22 22:30 03/07/22 22:38 4
[2022-03-08] MEDS: ASPIRIN 81 MG ECTAB PO SCH (08:46)
[2022-03-08] MEDS: POTASSIUM CHLORIDE CRTAB 20 MEQ TABCR PO SCH (08:46)
[2022-03-08] MEDS: METOPROLOL TARTRATE 25 MG TAB PO SCH ×2 (08:46→19:52)
[2022-03-08] MEDS: lisinopril 10 MG TAB PO SCH (08:46)
[2022-03-08] MEDS: AMOXICILLIN 500 MG CAP PO SCH ×2 (08:46→19:52)
[2022-03-08] MEDS: FLUTICASONE PROPIONATE NA SPR 16 GM BTL SCH ×2 (08:47→19:53)
--- NOTE | 2022-03-08 09:17 | Cardiology Progress Note ---
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 We will then monitor for reaccumulation on telemetry. Also repeat echocardiogram in the a.m. to evaluate pericardial effusion status postthoracentesis to look for any possible hemodynamic changes She will also be started on colchicine and ibuprofen to aid in resolution of the pericardial effusion Admission and Anticipated Discharge Date Admission Date: March 07, 2022 Results & Data ([facility]) Vital Signs (Past 12 Hours) Vital Signs Temp Pulse Pulse Resp BP Pulse Ox O2 Del Method 03/08/22 07:00 71 03/08/22 07:00 36.9 C 88 16 128/77 93 Nasal Cannula 03/08/22 03:53 36.8 C 73 12 143/84 H 93 Nasal Cannula 03/07/22 22:30 78 03/07/22 22:38 36.8 C 74 18 125/83 90 Nasal Cannula O2 Flow Rate 03/08/22 07:00 03/08/22 07:00 4 03/08/22 03:53 4 03/07/22 22:30 03/07/22 22:38 4
--- NOTE | 2022-03-08 10:39 | Pulmonology Progress Note ---
Date of Service March 08, 2022 Assessment & Plan (1) Pleural effusion: (2) Acute respiratory failure with hypoxia: (3) ANNABELLE (obstructive sleep apnea): (4) Hypertensive urgency: Plan Chest x-ray 03/07/2022 personally reviewed: Portable film, large left-sided pleural effusion appreciated, increased cardiac silhouette -- Left-sided pleural effusion In a patient who recently had cardiothoracic surgery possibility of it being postcardiotomy pleural effusion is there Patient denies any fever or chills S/p thoracentesis 03/07/2022, 1.5 L serosanguineous fluid removed, exudative as p er lights criteria Pleural fluid: LDH 175, protein 4.9, pH 7.49, RBC 27,000 Serum: LDH 274, protein 7.1 Follow-up cytology -- Acute respiratory failure with hypoxia On 2 L nasal cannula Likely secondary to pleural effusion Keep O2 saturation between 90-92% -- ANNABELLE Patient is unable to tolerate CPAP Parts of compliance expanded the patient in depth Plan: Pleural fluid was exudative, I still think this is most likely post cardiotomy Follow-up cytology. O2 supplementation to keep O2 saturation between 90-92% Continue with incentive spirometry. No further recommendation from pulmonary perspective. We will sign off. Please call directly with any questions Please note the above document was generated using voice recognition software. It may contain grammatical, syntax or spelling errors.Any formal questions or concerns about the content, text or information contained within the body of this dictation should be directly addressed to the provider for clarification. Admission and Anticipated Discharge Date Admission Date: March 07, 2022 Subjective Patient seen and examined at bedside. No acute distress, no adverse events overnight. Patient says she is feeling better compared to yesterday after thoracentesis done Denies any chest pain, no headache, no nausea, no vomiting Fair appetite. Review of Systems Review of Systems: All systems reviewed & are unremarkable except as noted in Subjective Physical Exam Physical Exam: Constitutional: No acute distress HEENT: EOMI, PERRLA Respiratory system: Decreased air entry in the left side(improved from before), no wheeze, no rhonchi, positive crackles left lower lobe CVS: S1-S2 positive, no murmurs or gallops, distant heart sounds Abdomen: Soft, nontender, nondistended, positive bowel sounds x4, obese Extremities: +2 pulses bilaterally radialis/ dorsalis pedis, no cyanosis, +1 pitting edema bilateral lower extremity Neuro: Awake alert oriented x3 Psych: Normal mood and affect G/U: No Newman Results & Data Results & Data ([facility]) Vital Signs (Past 12 Hours) Vital Signs Temp Pulse Pulse Resp BP Pulse Ox O2 Del Method 03/08/22 07:00 71 03/08/22 07:00 36.9 C 88 16 128/77 93 Nasal Cannula 03/08/22 03:53 36.8 C 73 12 143/84 H 93 Nasal Cannula 03/07/22 22:38 36.8 C 74 18 125/83 90 Nasal Cannula O2 Flow Rate 03/08/22 07:00 03/08/22 07:00 4 03/08/22 03:53 4 03/07/22 22:38 4 Laboratory Results 03/08/22 06:51 03/08/22 06:51 PG Care Time/CCT Total # of Minutes Spent Total Time Spent with Patient: Total time spent is greater than 50% in coordination of care (as documented) at patient's floor/unit and/or counseling patient: Coding Level of Care Code 38084 Subseq Hosp Care Lvl 2 Diagnoses Pleural effusion J90 Acute respiratory failure with hypoxia J96.01 ANNABELLE (obstructive sleep apnea) G47.33 Hypertensive urgency I16.0
[2022-03-08] MEDS: FUROSEMIDE 40 MG/4 ML VIAL IV SCH ×2 (13:28→17:46)
--- NOTE | 2022-03-08 13:36 | Hospitalist Progress Note ---
Date of Service March 08, 2022 Assessment & Plan (1) Pleural effusion: Plan: Ms. Delores Watt is a 51 year old female who presented to the [facility] ED by the recommendation of Dr. Lilly who she saw for outpatient follow up today s/p AAA repair in [place] on 01/07. She was noted to have a large left pleural effusion and pericardial effusion on CXR. 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 Plan for thorac entesis and PCU admission. Hold diuretics to protect preload. Pleural Effusion: Presented with shortness of breath and bilateral leg swelling -Repeat ECHO outpatient today revealed large left pleural effusion -Appreciate pulmonary input and recommendation -Status post thoracentesis of 1500 mL fluid-sent for studies -She has been feeling a little better following the procedure -Lasix 40 mg IV twice daily Pericardial effusion (2) Pericardial effusion: Plan: Pericardial effusion Likely secondary to recent thoracic surgery as mentioned earlier Appreciate cardiology input and recommendation Echo of the heart showedcompared to previous study of 03/07 the effusion has decreased Has been started on colchicine and ibuprofen (3) Status post thoracic aortic aneurysm repair: Plan: Post op Aortic Dissection (01/07): -Transferred emergently to [place]; thoracic and aortic AAA including the arch repaired on 01/07/22; she was discharged on 01/19/22 -Was noted to have cough and SOB x 3 days; went to outpatient Cardiology for follow up and repeat ECHO today (03/07) -EF on ECHO 03/07 60-64% -Continue ASA 81 mg now -Consult Cardiology: Discussed with Dr. Le; hold on diuretics and no Nitro paste to protect Preload -Trend Troponins: Initial 69, second 14. -Mg+ level ordered and pending (4) Hypertensive urgency: Plan: HTN urgency: -B/P 178/129 on admission -Received AM Metoprolol and Lisinopril PO without improvement. -Labetalol 20 mg IV ordered once. -Blood pressure has been maintained (5) Hypokalemia: Plan: Supplemented (6) Acute otitis media: Plan: Acute Otitis Media: -Right ear. -Taking Amoxicillin 500 mg PO BID x 10 days; due to complete course 03/08. No acute issue now (7) Hypothyroidism: Plan: Will give supplement Plan Hypokalemia: -K+ 3.3 on admission; ordered Potassium 40mEq PO Once; will resume home meds in AM. -Takes Lasix at home; recently switched to Torsemide; however has not started taking it yet. -Potassium is 3.8 as of 02/28/2022-we will monitor PRP and electrolytes Hypothyroidism: Continue Synthroid as prescribed Disposition: -PCP: Dr. Jovel -Code Status: Full Code -VTE Prophylaxis: SCD's for now; reeval appropriateness post thoracentesis -Plan to return home post discharge -menswear salesperson: Shin Watt: [phone] Admission and Anticipated Discharge Date Admission Date: March 07, 2022 Subjective 03/08/2022 The patient was seen and examined in telemetry unit She was admitted from Dr. Yusuf's office with increasing shortness of breath and leg swelling She has been feeling much better this morning following thoracentesis Denies any chest pain and/or palpitation and no shortness of breath at rest Review of Systems Review of Systems: All systems reviewed and are unremarkable except as noted below Respiratory: Shortness of breath is improved Cardiovascular: Additional Comments: Denies any chest pain Physical Exam Physical Exam: Lying in bed with minimal distress Constitutional: well developed, well nourished, + ill appearing and + obese Eyes: PERRL, conjunctivae normal, anicteric sclerae ENMT: external ear and nose normal, oropharynx normal Neck: trachea midline, no thyromegaly Respiratory: no respiratory distress Auscultation: + diminished lung sounds (More on the left side than the right) and + crackles (Minimal crackles) Cardiovascular: Rate/Rhythm: regular rate and regular rhythm; not tachycardic Heart Sounds: normal S1 and normal S2; no murmur Extremities: + edema (1+ edema bilaterally) Gastrointestinal (Abdomen): Inspection/Auscultation: normal bowel sounds; abdomen not distended Percussion/Palpation: abdomen soft; abdomen nontender Musculoskeletal: No acute arthritis in any joint Neurologic: Alert, awake and oriented x3. No focal sensory or no motor deficit appreciated Psychiatric: A+Ox3, euthymic affect Lymphatic: no cervical or axillary lymphadenopathy Results & Data Results & Data ([facility]) Vital Signs (Past 12 Hours) Vital Signs Temp Pulse Pulse Resp BP Pulse Ox O2 Del Method 03/08/22 11:00 37.1 C 73 20 127/82 95 Nasal Cannula 03/08/22 07:00 71 07/28/22 07:00 36.9 C 88 16 128/77 93 Nasal Cannula 03/08/22 03:53 36.8 C 73 12 143/84 H 93 Nasal Cannula O2 Flow Rate 03/08/22 11:00 4 03/08/22 07:00 03/08/22 07:00 4 03/08/22 03:53 4 Laboratory Results Short CBC 03/07/22 03/08/22 Range/Units 15:26 06:51 WBC 7.34 7.25 (4.8-10.8) K/ul Hgb 11.8 L 10.3 L (12.0-16.0) g/dl Hct 36.7 33.1 L (34.1-44.9) % Plt Count 266 221 (130-400) K/uL BMP 03/07/22 03/08/22 15:26 06:51 Sodium 141 142 Potassium 3.3 L 3.8 Chloride 103 105 Carbon Dioxide 31 34 H BUN 8 12 Creatinine 0.98 1.18 Glucose 87 93 Calcium 9.4 9.1 Liver Function 03/07/22 03/07/22 Range/Units 15:26 15:26 Total Bilirubin 0.4 Cancelled (0.2-1.0) mg/dl AST 17 (13-39) U/L ALT 9 (7-52) U/L Alkaline Phosphatase 75 (34-104) U/L Albumin 3.8 Cancelled (3.4-5.0) gm/dl Medications Administered Current Inpatient Medications Acetaminophen (Acetaminophen 325 Mg Tab) 650 mg PO Q4H PRN PRN Reason: Pain or Fever Stop: 04/06/22 18:38 Last Admin: 03/08/22 08:48 Dose: 650 mg Al Hydrox/Mg Hydrox/Simethicone (Aluminum/Magnesium Susp 30 Ml Udc) 15 ml PO Q4H PRN PRN Reason: Dyspepsia Stop: 04/06/22 18:38 Albuterol (Albuterol Hfa 8 Gm Inhaler) 2 puffs INH Q4 PRN PRN Reason: Wheezing Stop: 04/06/22 18:38 Amoxicillin (Amoxicillin 500 Mg Cap) 500 mg PO [facility] Stop: 03/17/22 20:59 Last Admin: 03/08/22 08:46 Dose: 500 mg Aspirin (Aspirin 81 Mg Ectab) 81 mg PO QAM [facility] Stop: 04/06/22 18:38 Last Admin: 03/08/22 08:46 Dose: 81 mg Calcium Carbonate (Calcium Carbonate 500 Mg Chewable Tab) 500 mg PO Q48H [facility] Stop: 04/06/22 19:59 Last Admin: 03/07/22 21:02 Dose: 500 mg Fluticasone Propionate (Fluticasone Propionate Na Spr 16 Gm Btl) 2 sprays NA [facility] Stop: 04/06/22 20:59 Last Admin: 03/08/22 08:47 Dose: Not Given Furosemide (Furosemide 40 Mg/4 Ml Vial) 40 mg IV BID17 [facility] Stop: 04/07/22 12:09 Last Admin: 03/08/22 13:28 Dose: 40 mg Levothyroxine Sodium (Levothyroxine Sodium 125 Mcg Tablet) [facility] Stop: 04/07/22 06:29 Last Admin: 03/08/22 06:03 Dose: 125 mcg Levothyroxine Sodium (Levothyroxine Sodium 150 Mcg Tablet) 150 [facility] Stop: 04/07/22 06:29 Last Admin: 03/08/22 06:04 Dose: 150 mcg Lisinopril (Lisinopril 10 Mg Tab) [facility] Stop: 04/07/22 08:59 Last Admin: 03/08/22 08:46 Dose: 10 mg Magnesium Hydroxide (Magnesium Hydroxide Susp 30 Ml Udc) 30 ml PO Q12H PRN PRN Reason: Constipation Stop: 04/06/22 18:38 Metoprolol Tartrate (Metoprolol Tartrate 25 Mg Tab) 25 mg PO [facility] Stop: 04/06/22 20:59 Last Admin: 03/08/22 08:46 Dose: 25 mg Miscellaneous (Icu Protocol For Hyperglycemia) 1 each N/A PRN PRN; Protocol PRN Reason: Hyperglycemia Protocol Stop: 03/09/22 18:38 Ondansetron HCl (Ondansetron Inj 2 Mg/Ml 2 Ml Vial) 4 mg IV Q6H PRN PRN Reason: Nausea Stop: 04/06/22 18:38 Polyethylene Glycol (Polyethylene (Miralax) 17 Gm Pack) 17 gm PO DAILY PRN PRN Reason: Constipation Stop: 04/06/22 18:38 Potassium Chloride (Potassium Chloride Crtab 20 Meq Tabcr) 20 meq PO QAM [facility] Stop: 04/07/22 08:59 Last Admin: 03/08/22 08:46 Dose: 20 meq
[2022-03-09] MEDS: LEVOTHYROXINE SODIUM 150 MCG TABLET PO SCH (05:33)
[2022-03-09] MEDS: LEVOTHYROXINE SODIUM 125 MCG TABLET PO SCH (05:33)
[2022-03-09 07:54] LABS: Basophils # (auto) 0.07 K/uL (0-0.2); Basophils % (auto) 0.9 %; Eosinophils # (auto) 0.57 K/uL (0-0.50); Eosinophils % (auto) 7.2 %; Hematocrit (blood only) 34.8 % (34.1-44.9); Immature Granulocytes # (auto) 0.03 K/uL (0.00-0.02); Immature Granulocytes % (auto) 0.4 %; Lymphocytes # (auto) 1.98 K/uL (1.2-3.4); Lymphocytes % (auto) 25.1 %; Mean Corpuscular Hgb Conc 31.6 g/dL (32.0-36.0); Mean Corpuscular Volume 91.8 fL (80.0-100.0); Monocytes # (auto) 0.56 K/uL (0.24-0.82); Monocytes % (auto) 7.1 %; Neutrophils # (auto) 4.69 K/uL (1.4-6.5); Neutrophils % (auto) 59.3 %; Platelet Count 227 K/uL (130-400); RDW Coefficient of Variation 14.1 % (11.5-14.5); RDW Standard Deviation 46.9 fL (36.4-46.3); Red Blood Count 3.79 M/uL (3.93-5.22)
[2022-03-09 08:23] LABS: BUN Creatinine Ratio 13.6 (10-20); Creatinine Clr Calc Pharmacy 78.5 ml/min; Est GFR (African American) 67.8 ml/min; Est GFR (Non-African American) 58.5 ml/min; Potassium 3.6 mmol/L (3.5-5.1)
[2022-03-09] MEDS: POTASSIUM CHLORIDE CRTAB 20 MEQ TABCR PO SCH (08:45)
[2022-03-09] MEDS: AMOXICILLIN 500 MG CAP PO SCH ×2 (08:45→20:38)
[2022-03-09] MEDS: lisinopril 10 MG TAB PO SCH (08:45)
[2022-03-09] MEDS: METOPROLOL TARTRATE 25 MG TAB PO SCH ×2 (08:45→20:38)
[2022-03-09] MEDS: ASPIRIN 81 MG ECTAB PO SCH (08:45)
[2022-03-09] MEDS: FUROSEMIDE 40 MG/4 ML VIAL IV SCH ×2 (08:46→16:36)
[2022-03-09] MEDS: FLUTICASONE PROPIONATE NA SPR 16 GM BTL SCH ×2 (08:46→20:38)
--- NOTE | 2022-03-09 08:54 | Pulmonology Progress Note ---
Date of Service March 09, 2022 Assessment & Plan (1) Pleural effusion: (2) Acute respiratory failure with hypoxia: (3) ANNABELLE (obstructive sleep apnea): (4) Hypertensive urgency: Plan Chest x-ray 03/07/2022 personally reviewed: Portable film, large left-sided pleural effusion appreciated, increased cardiac silhouette -- Left-sided pleural effusion In a patient who recently had cardiothoracic surgery possibility of it being postcardiotomy pleural effusion is there Patient denies any fever or chills Consider colchicine +/- NSAIDs for pericardial as well as pleural effusion S/p thoracentesis 03/07/2022, 1.5 L serosanguineous fluid removed, exudative as per lights criteria Pleural fluid: LDH 175, protein 4.9, pH 7.49, RBC 27,000 Serum: LDH 274, protein 7.1 Follow-up cytology -- Acute respiratory failure with hypoxia On 2 L nasal cannula Likely secondary to pleural effusion with compression atelectasis Keep O2 saturation between 90-92% -- ANNABELLE Patient is unable to tolerate CPAP Parts of compliance expanded the patient in depth Plan: Patient was saturating 89-90% on room air at rest. I do think patient will qualify for oxygen.. Prior to discharge Follow-up cytology from the pleural fluid Continue with incentive spirometry. Consider colchicine +/- NSAIDs for pericardial as well as pleural effusion No further recommendation from pulmonary perspective. We will sign off. Please call directly with any questions Please note the above document was generated using voice recognition software. It may contain grammatical, syntax or spelling errors.Any formal questions or concerns about the content, text or information contained within the body of this dictation should be directly addressed to the provider for clarification. Admission and Anticipated Discharge Date Admission Date: March 07, 2022 Subjective Patient seen and examined at bedside. No acute distress, no dressings overnight. Denies any chest pain, shortness of breath is improved No headache, blurry vision No nausea or vomiting Good appetite. Review of Systems Review of Systems: All systems reviewed & are unremarkable except as noted in Subjective Physical Exam Physical Exam: Constitutional: No acute distress HEENT: EOMI, PERRLA Respiratory system: Decreased air entry in the left side(improved from initial presentation), no wheeze, no rhonchi, positive crackles left lower lobe CVS: S1-S2 positive, no murmurs or gallops, distant heart sounds Abdomen: Soft, nontender, nondistended, positive bowel sounds x4, obese Extremities: +2 pulses bilaterally radialis/ dorsalis pedis, no cyanosis, +1 pitting edema bilateral lower extremity Neuro: Awake alert oriented x3 Psych: Normal mood and affect G/U: No Newman Skin: no rashes, warm and dry Lymphatic: no cervical or axillary lymphadenopathy Results & Data Results & Data ([facility]) Vital Signs (Past 12 Hours) Vital Signs Temp Pulse Pulse Resp BP Pulse Ox O2 Del Method 03/09/22 02:42 36.9 C 74 20 133/90 98 Nasal Cannula 03/08/22 22:30 76 03/08/22 22:57 36.8 C 71 18 136/81 90 Room Air O2 Flow Rate 03/09/22 02:42 2 03/08/22 22:30 03/08/22 22:57 Laboratory Results 03/09/22 07:05 03/09/22 07:05 PG Care Time/CCT Total # of Minutes Spent Total Time Spent with Patient: Total time spent is greater than 50% in coordination of care (as documented) at patient's floor/unit and/or counseling patient: Coding Level of Care Code 09989 Subseq Hosp Care Lvl 2 Diagnoses Pleural effusion J90 Acute respiratory failure with hypoxia J96.01 ANNABELLE (obstructive sleep apnea) G47.33 Hypertensive urgency I16.0
--- NOTE | 2022-03-09 09:25 | Cardiology Progress Note ---
Date of Service March 09, 2022 Assessment & Plan (1) Pleural effusion: (2) Pericardial effusion: (3) Dissecting aneurysm of thoracic aorta, [place] type A: (4) ANNABELLE (obstructive sleep apnea): Plan repeat echo shows significant improvement in pericardial effusion cont diuresis and reevaluate volume status clinically in the AM She will also be started on colchicine and ibuprofen to aid in resolution of the pericardial effusion Admission and Anticipated Discharge Date Admission Date: March 07, 2022 Subjective Patient seen and examined, chart reviewed. States that she feels well today. Denies chest pain or shortness of breath at rest. Is a little nervous about going home too soon. Telemetry reviewed: Normal sinus rhythm without arrhythmia Review of Systems Review of Systems: All systems reviewed & are unremarkable except as noted in HPI & below Physical Exam Physical Exam: Physical Exam: General: Awake, alert and oriented x 3. No acute distress. HEENT: Normocephalic, atraumatic. Pupils equal, round and reactive to light and accommodation. Extraocular muscles are intact. Anicteric sclera. Moist mucous membranes. Neck: No JVD. No bruit. Cardiovascular: Regular but distant. No S-4. Normal S-1 and S-2. No S-3. No murmurs, rubs or gallops. Pulmonary: Poor air movement bilaterally Abdomen: Bowel sounds x 4, soft. No rebound, guarding or tenderness. No organomegaly. Extremities: No clubbing, cyanosis or edema. +2 pedal pulses bilaterally. Skin: Warm and dry. Results & Data ([facility]) Vital Signs (Past 12 Hours) Vital Signs Temp Pulse Pulse Resp BP Pulse Ox O2 Del Method 03/09/22 09:15 37.0 C 88 18 126/69 93 Room Air 03/09/22 02:42 36.9 C 74 20 133/90 98 Nasal Cannula 03/08/22 22:30 76 03/08/22 22:57 36.8 C 71 18 136/81 90 Room Air O2 Flow Rate 03/09/22 09:15 03/09/22 02:42 2 03/08/22 22:30 03/08/22 22:57
[2022-03-09] MEDS: IBUPROFEN 600 MG TAB PO SCH ×2 (10:02→16:36)
[2022-03-09] MEDS: COLCHICINE 0.6 MG TAB PO SCH ×2 (10:02→20:38)
[2022-03-09] MEDS: CALCIUM CARBONATE 500 MG CHEWABLE TAB PO SCH (19:27)
[2022-03-10] MEDS: IBUPROFEN 600 MG TAB PO SCH ×2 (01:23→09:12)
[2022-03-10] MEDS: LEVOTHYROXINE SODIUM 125 MCG TABLET PO SCH (05:44)
[2022-03-10] MEDS: LEVOTHYROXINE SODIUM 150 MCG TABLET PO SCH (05:44)
[2022-03-10] MEDS ORDERED: PANTOprazole 40 MG TAB PO SCH (09:00)
[2022-03-10] MEDS: AMOXICILLIN 500 MG CAP PO SCH (09:12)
[2022-03-10] MEDS: METOPROLOL TARTRATE 25 MG TAB PO SCH (09:12)
[2022-03-10] MEDS: POTASSIUM CHLORIDE CRTAB 20 MEQ TABCR PO SCH (09:12)
[2022-03-10] MEDS: COLCHICINE 0.6 MG TAB PO SCH (09:12)
[2022-03-10] MEDS: ASPIRIN 81 MG ECTAB PO SCH (09:13)
[2022-03-10] MEDS: lisinopril 10 MG TAB PO SCH (09:13)
[2022-03-10] MEDS: FLUTICASONE PROPIONATE NA SPR 16 GM BTL SCH (09:29)
[2022-03-10] MEDS: FUROSEMIDE 40 MG/4 ML VIAL IV SCH (09:29)
--- NOTE | 2022-03-10 11:56 | Cardiology Progress Note ---
Date of Service March 10, 2022 Assessment & Plan (1) Pleural effusion: (2) Pericardial effusion: (3) Dissecting aneurysm of thoracic aorta, [place] type A: (4) ANNABELLE (obstructive sleep apnea): Plan I believe the patient can be discharged home today with outpatient follow-up. She is scheduled to see her hydraulic jack mechanic Dr. Yusuf in May, I will try to have that appointment moved up to a sooner date. Admission and Anticipated Discharge Date Admission Date: March 07, 2022 Subjective The patient is sitting in a chair having lunch with her . Review of Systems Review of Systems: Review of Systems: See HPI for pertinent positives. All other 10 point review of systems are negative. Physical Exam Physical Exam: General: no acute distress and stated age Head: normocephalic, no masses, lesions, tenderness or abnormalities Eyes: conjunctiva are pink and non-injected, sclera clear Neck: supple, no adenopathy, no bruits, normal jugular venous pulse, no hepat ojugular reflux Chest: normal shape and normal respiratory effort Lungs: clear to auscultation and percussion Cardiac Exam: - regular rate & rhythm, no murmurs gallops or rubs - normal S1, normal S2 Pulses: 2(+) throughout Abdomen: abdomen soft, non-tender, no abnormal masses and no hepatosplenomegaly Musculoskeletal: no gait disturbance, no joint inflammation, no deforming arthritis Extremities: no edema and no cyanosis Neuro: grossly normal exam Results & Data ([facility]) Vital Signs (Past 12 Hours) Vital Signs Temp Pulse Resp BP Pulse Ox O2 Del Method O2 Flow Rate 03/10/22 11:18 36.9 C 79 20 147/98 H 97 Room Air 03/10/22 07:29 36.5 C 75 20 142/92 H 96 Room Air 03/10/22 03:26 36.6 C 70 18 135/97 98 Nasal Cannula 2 Medications Administered Current Inpatient Medications Acetaminophen (Acetaminophen 325 Mg Tab) 650 mg PO Q4H PRN PRN Reason: Pain or Fever Stop: 04/06/22 18:38 Last Admin: 03/08/22 08:48 Dose: 650 mg Al Hydrox/Mg Hydrox/Simethicone (Aluminum/Magnesium Susp 30 Ml Udc) 15 ml PO Q4H PRN PRN Reason: Dyspepsia Stop: 04/06/22 18:38 Albuterol (Albuterol Hfa 8 Gm Inhaler) 2 puffs INH Q4 PRN PRN Reason: Wheezing Stop: 04/06/22 18:38 Amoxicillin (Amoxicillin 500 Mg Cap) 500 mg PO [facility] Stop: 03/17/22 20:59 Last Admin: 03/10/22 09:12 Dose: 500 mg Aspirin (Aspirin 81 Mg Ectab) 81 mg PO QAM [facility] Stop: 04/06/22 18:38 Last Admin: 03/10/22 09:13 Dose: 81 mg Calcium Carbonate (Calcium Carbonate 500 Mg Chewable Tab) 500 mg PO Q48H [facility] Stop: 04/06/22 19:59 Last Admin: 03/09/22 19:27 Dose: 500 mg Colchicine (Colchicine 0.6 Mg Tab) 0.6 mg PO BID [facility] Stop: 04/08/22 09:59 Last Admin: 03/10/22 09:12 Dose: 0.6 mg Fluticasone Propionate (Fluticasone Propionate Na Spr 16 Gm Btl) 2 sprays NA [facility] Stop: 04/06/22 20:59 Last Admin: 03/10/22 09:29 Dose: 2 sprays Furosemide (Furosemide 40 Mg/4 Ml Vial) 40 mg IV BID17 [facility] Stop: 04/07/22 12:09 Last Admin: 03/10/22 09:29 Dose: 40 mg Ibuprofen (Ibuprofen 600 Mg Tab) 600 mg PO Q8H [facility] Stop: 04/08/22 09:29 Last Admin: 03/10/22 09:12 Dose: 600 mg Levothyroxine Sodium (Levothyroxine Sodium 125 Mcg Tablet) 125 mcg PO DAILYBB [facility] Stop: 04/07/22 06:29 Last Admin: 03/10/22 05:44 Dose: 125 mcg Levothyroxine Sodium (Levothyroxine Sodium 150 Mcg Tablet) 150 mcg PO DAILYBB [facility] Stop: 04/07/22 06:29 Last Admin: 03/10/22 05:44 Dose: 150 mcg Lisinopril (Lisinopril 10 Mg Tab) 10 mg PO QAM [facility] Stop: 04/07/22 08:59 Last Admin: 03/10/22 09:13 Dose: 10 mg Magnesium Hydroxide (Magnesium Hydroxide Susp 30 Ml Udc) 30 ml PO Q12H PRN PRN Reason: Constipation Stop: 04/06/22 18:38 Metoprolol Tartrate (Metoprolol Tartrate 25 Mg Tab) 25 mg PO AM[facility] Stop: 04/06/22 20:59 Last Admin: 03/10/22 09:12 Dose: 25 mg Ondansetron HCl (Ondansetron Inj 2 Mg/Ml 2 Ml Vial) 4 mg IV Q6H PRN PRN Reason: Nausea Stop: 04/06/22 18:38 Pantoprazole Sodium (Pantoprazole 40 Mg Tab) 40 mg PO BID [facility] Stop: 03/14/22 08:59 Last Admin: 03/10/22 10:30 Dose: 40 mg Polyethylene Glycol (Polyethylene (Miralax) 17 Gm Pack) 17 gm PO DAILY PRN PRN Reason: Constipation Stop: 04/06/22 18:38 Potassium Chloride (Potassium Chloride Crtab 20 Meq Tabcr) 20 meq PO QAM [facility] Stop: 04/07/22 08:59 Last Admin: 03/10/22 09:12 Dose: 20 meq
--- NOTE | 2022-03-10 12:22 | Discharge Summary ---
Date of Service March 10, 2022 Admission HPI Per Admitting Provider Ms. Delores Watt is a 51 year old female who presented to the [facility] ED by the recommendation of Dr. Lilly who she saw for outpatient follow up today. She recently presented to the [facility] with syncope and was emergently transferred to [facility] for cardiac tamponade and thoracic and aortic AAA repair. Post-operatively she developed an ileus and required additional hospitalization, but was discharged on January 19, 2022. She has been doing well post-operatively and completed her PO Amiodarone. She started to have a cough and SOB over the last 3 days; she had a repeat ECHO today a large left pleural effusion and large pericardial effusion was noted. Her EF was 60-64% and no tamponade was noted . She has been having increasing difficulty with her fluid status and has not been responding to her Lasix as well as anticipated; so she was just switched to Torsemide a few days ago; however, has not started taking it yet. In the ED she is hypertensive 176/143 and 91% on RA. Additional PMH includes Hypothyroidism, AAA, HTN, and ANNABELLE. She currently denies BERGER, dizziness, CP, palpitations, SOB, use of accessory muscle use, pursed lip breathing, N/V/D. Case discussed as outlined above with ICU/Pulmonary Dr. Ward and Cardiology Dr. Le. Please see A/P for further details. Admission Exam Per Admitting Provider Neuro: AAOx4, PERRLA, no aphagia, memory changes, CNII-XII grossly intact HEENT: head normocephalic, moist mucus membranes CV: S1/S2, (-) M/G/R, (-) edema, cap refill < 3 seconds (-) JVD Resp: On 2 LNC; minimal movement left lung fonseca, right lung CTA. GI: Abdomen S/NT/ND, Ax4 bowel sounds, (-) CVA tenderness Musculoskeletal: 5/5 B/L UE strength, 5/5 B/L LE strength. No gait disturbance Skin: (-) rashes , (-) erythema. mid sternal incision Psych: euthymic mood Principal Diagnosis Left pleural effusion, pericardial effusion s/p recent thoracic aortic aneurysm repair 01/07/22 Discharge Exam General: Sitting comfortably in chair, not in distress, on room air HEENT: EOMI, RAULITO, MMM Chest: Fair breath sounds bilaterally, no wheezes or crackles CVS: Regular rate and rhythm, normal heart sounds, no murmur Abdomen: Soft, non tender, not distended, normal bowel sounds Neuro: Awake, alert, oriented, conversing well, non focal Extremities: No cyanosis, clubbing or edema Discharge Data Allergies Allergy/AdvReac Type Severity Reaction Status Date / Time No Known Allergies Allergy Unknown Verified 03/07/22 15:07 Consultations 03/07/22 14:45 ED Decision to Admit Stat 03/07/22 15:55 Consult Pulmonology Stat 03/07/22 18:39 Consult Cardiology Routine Ordered Studies 03/07/22 17:40 US point of care ultrasound Urgent Laboratory Results WBC 7.90 K/ul (4.8-10.8) 03/09/22 07:05 RBC 3.79 M/uL (3.93-5.22) L 03/09/22 07:05 Hgb 11.0 g/dl (12.0-16.0) L 03/09/22 07:05 Hct 34.8 % (34.1-44.9) 03/09/22 07:05 MCV 91.8 fL (80.0-100.0) 03/09/22 07:05 MCH 29.0 pg (25.0-34.0) 03/09/22 07:05 MCHC 31.6 g/dL (32.0-36.0) L 03/09/22 07:05 RDW Std Deviation 46.9 fL (36.4-46.3) H 03/09/22 07:05 RDW Coeff of Jacinto 14.1 % (11.5-14.5) 03/09/22 07:05 Plt Count 227 K/uL (130-400) 03/09/22 07:05 MPV 10.0 fL (9.4-12.3) 03/09/22 07:05 Immature Gran % (Auto) 0.4 % 03/09/22 07:05 Neut % (Auto) 59.3 % 03/09/22 07:05 Lymph % (Auto) 25.1 % 03/09/22 07:05 Zavala % (Auto) 7.1 % 03/09/22 07:05 Eos % (Auto) 7.2 % 03/09/22 07:05 Baso % (Auto) 0.9 % 03/09/22 07:05 Neut # (Auto) 4.69 K/uL (1.4-6.5) 03/09/22 07:05 Lymph # (Auto) 1.98 K/uL (1.2-3.4) 03/09/22 07:05 Zavala # (Auto) 0.56 K/uL (0.24-0.82) 03/09/22 07:05 Eos # (Auto) 0.57 K/uL (0-0.50) H 03/09/22 07:05 Baso # (Auto) 0.07 K/uL (0-0.2) 03/09/22 07:05 Immature Gran # (Auto) 0.03 K/uL (0.00-0.02) H 03/09/22 07:05 PT 11.5 Seconds (9.0-12.0) 03/07/22 15:28 INR 1.1 (0.9-1.1) 03/07/22 15:28 APTT 29.2 Seconds (21.0-31.0) 03/07/22 15:28 PTT Ratio 1.1 03/07/22 15:28 Sodium 139 mmol/L (136-145) 03/09/22 07:05 Potassium 3.6 mmol/L (3.5-5.1) 03/09/22 07:05 Chloride 101 mmol/L (98-107) 03/09/22 07:05 Carbon Dioxide 32 mmol/L (21-32) 03/09/22 07:05 Anion Gap 6 (3-11) 03/09/22 07:05 BUN 15 mg/dl (6-23) 03/09/22 07:05 Creatinine 1.10 mg/dl (0.6-1.2) 03/09/22 07:05 Est Cr Clr Drug Dosing 78.5 ml/min 03/09/22 07:05 Est GFR ( Amer) 67.8 ml/min 03/09/22 07:05 Est GFR (Non-Af Amer) 58.5 ml/min 03/09/22 07:05 BUN/Creatinine Ratio 13.6 (10-20) 03/09/22 07:05 Glucose 88 mg/dl (70-99(Fasting)) 03/09/22 07:05 Calcium 9.0 mg/dl (8.5-10.1) 03/09/22 07:05 Magnesium 2.0 mg/dl (1.7-2.4) 03/09/22 07:05 Total Bilirubin 0.4 mg/dl (0.2-1.0) 03/07/22 15:26 Total Bilirubin Cancelled 03/07/22 15:26 AST 17 U/L (13-39) 03/07/22 15:26 ALT 9 U/L (7-52) 03/07/22 15:26 Alkaline Phosphatase 75 U/L (34-104) 03/07/22 15:26 Lactate Dehydrogenase 274 U/L (86-244) H 03/07/22 15:26 Troponin I High Sens 14.4 pg/ml (0-14) H D 03/07/22 15:26 Total Protein 7.1 gm/dl (6.0-8.3) 03/07/22 15:26 Total Protein Cancelled 03/07/22 15:26 Albumin 3.8 gm/dl (3.4-5.0) 03/07/22 15:26 Albumin Cancelled 03/07/22 15:26 Globulin 3.3 gm/dl (2.5-4.0) 03/07/22 15:26 Albumin/Globulin Ratio 1.2 (0.9-2) 03/07/22 15:26 Lipase 18 U/L (11-82) 03/07/22 15:26 Fluid Neutrophils % 4 % 03/07/22 18:53 Fluid Lymphocytes % 89 % 03/07/22 18:53 Fluid Meso/Macro/Zavala % 7 % 03/07/22 18:53 Fluid Slide Review 03/07/22 18:53 Fluid Comment 03/07/22 18:53 Pleural Fluid Source L.LUNG 03/07/22 18:53 Pleural Color Gypsy 03/07/22 18:53 Pleural Appearance Cloudy 03/07/22 18:53 Pleural pH 7.49 (7.3-7.4) H 03/07/22 18:53 Pleural WBC 1494 /uL 03/07/22 18:53 Pleural RBC 19651 /uL 03/07/22 18:53 Pleural Total Protein 4.9 gm/dl 03/07/22 18:53 Pleural LDH 175 U/L 03/07/22 18:53 Pleural Glucose 98 mg/dl 03/07/22 18:53 Pleural Amylase 33 U/L 03/07/22 18:53 Nasal Screen MRSA (PCR) Negative (Negative) 03/07/22 22:40 SARS-CoV-2, RNA, NAAT NEGATIVE (NEGATIVE) 03/07/22 14:20 Impressions Chest X-Ray 03/07/22 18:34 XR chest 1V portable at 7:05 PM CLINICAL HISTORY: S/P Thoracentesis. Evaluate for pneumothorax COMPARISON STUDY: 03/07/2022 at 2:21 PM TECHNIQUE: 1 view of the chest FINDINGS: Single frontal view of the chest demonstrates the heart to again be enlarged st atus post previous cardiothoracic surgery. The patient is status post left thoracentesis with interval decrease in large left pleural effusion. There is persistent left lower lobe and lingular atelectasis. The right hemithorax is clear. There is no evidence for right pleural effusion. There is no evidence for vascular congestion. There is no acute osseous pathology. IMPRESSION: 1. Status post left thoracentesis with decreased left pleural effusion. 2. No evidence for pneumothorax. 3. Persistent left lower lobe and lingular atelectasis/collapse. ACT 112: Negative or not required by law. Electronically signed by: Dayo Hester M.D. 03/07/2022 7:27 PM Hospital Course (1) Pleural effusion: Ms. Delores Watt is a 51 year old female who presented to the [facility] ED by the recommendation of Dr. Lilly who she saw for outpatient follow up today s/p AAA repair in [place] on 01/07. She was noted to have a large left pleural effusion and pericardial effusion on CXR. Left Pleural Effusion Presented with shortness of breath and bilateral leg swelling -Repeat ECHO outpatient revealed large left pleural effusion -Seen by pulmonary -Status post thoracentesis 03/07 with removal of 1500 mL fluid- cytology negative for malignancy - Repeat CXR 03/07 showed decreased left pleural effusion with no pneumothorax - started on iv lasix and feeling much better. Off of oxygen and ambulating independently without issues. Using IS. Denies dyspnea. Leg swelling resolved (2) Pericardial effusion: Likely secondary to recent thoracic surgery as mentioned earlier Seen by cadiology and started on colchicine bid for 3 months and motrin tid for 1 month as per cardiology recommendation. Started on PPI for gastric protection while on NSAIDs. Recommended repeat BMP in a week and periodically to monitor while on NSAIDs. F/u with PCP. Echo of the heart showedcompared to previous study of 03/07 the effusion has decreased and no cardiac tamponade (3) Status post thoracic aortic aneurysm repair: Post op Aortic Dissection (01/07): -Transferred emergently to [place]; thoracic and aortic AAA including the arch repaired on 01/07/22; she was discharged on 01/19/22 -Was noted to have cough and SOB x 3 days; went to outpatient Cardiology for follow up and repeat ECHO today (03/07) -EF on ECHO 03/07 60-64% - F/u with patient's cardiovascular surgeon and cardiology. (4) Hypertensive urgency: resolved. continue home medications. (5) Hypokalemia: resolved (6) Acute otitis media: AOM right ear- stable to improving, s/p amoxicillin course - has OP appt with ENT in 2 days (7) Hypothyroidism: continue synthroid Total Time Total Time Spent Total Time Spent (In Minutes): 45 Discharge Plan Discharge Items Patient Disposition: Home - Self-Care Reason For Visit: PLEURAL EFFUSION S/P AAA Discharge Diagnosis: Pleural effusion, pericardial effusion s/p recent AAA repair Activity: Resume your previous activity Non-emergency contact: Primary Care Provider Call non-emergency contact if: you have any medication questions, your symptoms worsen, your pain is not controlled and you have a fever Follow-up/Referrals: Dima King DO [Physician] - 03/13/22 2:30 pm (Date & Time 03/13/2022 2:30 PM Provider Audiology [facility] Department Audiology [facility] Date & Time 03/13/2022 3:00 PM Provider Dima King DO Department Otolaryngology [facility] ) Bronson Jovel MD [Primary Care Provider] - 03/19/22 3:20 pm (Date & Time 03/19/2022 3:20 PM Provider Bronson Jovel MD Department Family Practice [facility] ) Diet: Heart Healthy Addtl Attending Provider Instructions: Continue colchicine for 3 weeks. Continue ibuprofen for 1 month. Continue protonix while you are on ibuprofen to protect the stomach. Ibuprofen might hurt your stomach and kidneys. Recommend blood work (CBC, BMP) in a week and weekly BMP thereafter to ensure they are stable. Follow up with the family doctor and heart doctor Pending Studies at Discharge: No Stand-Alone Forms: My [facility], Smoking Cessation Medications and DC Order Prescriptions: New pantoprazole 40 mg Tablet,Delayed Release (Dr/Ec) 40 mg PO BID Qty: 60 0RF ibuprofen 600 mg Tablet 600 mg PO Q8H 30 Days Qty: 90 0RF colchicine [Colcrys] 0.6 mg Tablet 0.6 mg PO BID Qty: 60 0RF Continued levothyroxine 125 mcg tablet 125 mcg PO QAM Rx Instructions: take with 150mcg lisinopril 10 mg tablet 10 mg PO QAM levothyroxine 150 mcg tablet 150 mcg PO QAM Rx Instructions: take with 125mcg torsemide 20 mg tablet 20 mg PO QAM aspirin [Aspir-Low] 81 mg Tablet,Delayed Release (Dr/Ec) 81 mg PO QAM albuterol sulfate 90 mcg/actuation Hfa Aerosol Inhaler 2 puff INHALATION Q4 PRN (Reason: Wheezing) fluticasone propionate 50 mcg/actuation Weldon,Suspension 2 spray INTRANASAL [facility] Rx Instructions: administer into each nostril 2 sprays in morning and 2 sprays before bedtime amoxicillin 500 mg capsule 500 mg PO [facility] Rx Instructions: start 02/26/22 end date 03/08/22 do all th is for 10 days codeine-guaifenesin 10-100 mg/5 mL liquid 5 ml PO Q4 PRN (Reason: Cough) calcium carbonate [Calcium 500] 500 mg calcium (1,250 mg) Tablet,Chewable 500 mg PO Q OTHER DAY potassium chloride 10 mEq tablet,ER particles/crystals 20 meq PO QAM metoprolol tartrate 25 mg Tablet 25 mg PO [facility] Discharge Orders: Discharge Order (Routine); Ordered 03/10/22 Ordered By: Bryant Mantilla/Other Patient Handouts: Tips for Using Less Salt, Low-Salt Choices, Heart Failure Make Changes Diet Admission Data Admit Date/Time: 03/07/22 15:55 Attending Provider: Bryant Edwards Admit Provider: Marques Jimenez Primary Care Provider: Bronson Jovel Other Providers: Flo Ward ; Marques Jimenez ; Jose Alberto Le
== END 2022-03-10 13:50 | disposition home or self-care (01) | DRG 186 ==
LOC: ED 13:39 → SUATTDRO 15:55 → 2S 15:55
DX: E87.6 Hypokalemia; I31.3 Pericardial effusion (noninflammatory); I16.0 Hypertensive urgency; J96.01 Acute respiratory failure with hypoxia; H66.91 Otitis media, unspecified, right ear; E03.9 Hypothyroidism, unspecified; Z98.890 Other specified postprocedural states; Z68.41 Body mass index [BMI] 40.0-44.9, adult; E66.01 Morbid (severe) obesity due to excess calories; I71.2 Thoracic aortic aneurysm, without rupture; G47.33 Obstructive sleep apnea (adult) (pediatric); J90 Pleural effusion, not elsewhere classified; I11.0 Hypertensive heart disease with heart failure; I50.9 Heart failure, unspecified

== ENCOUNTER 2022-03-18 03:14 | Inpatient (IN) ==
[2022-03-18 05:38] LABS: Albumin Globulin Ratio 1.1 (0.9-2); Albumin Level 3.9 gm/dl (3.4-5.0); Bilirubin,Total 0.4 mg/dl (0.2-1.0); Calcium 9.4 mg/dl (8.5-10.1); Creatinine Clr Calc Pharmacy 63.2 ml/min; Est GFR (Non-African American) 44.9 ml/min; Globulin 3.4 gm/dl (2.5-4.0); Magnesium 2.1 mg/dl (1.7-2.4); Potassium 3.3 mmol/L (3.5-5.1); Total Protein 7.3 gm/dl (6.0-8.3)
[2022-03-18] MEDS ORDERED: MoRPHine SULFATE 4 MG/ML 1 ML CARP\\VIAL IV STA (06:24)
[2022-03-18 06:53] LABS: Prothrombin Time 10.7 Seconds (9.0-12.0)
[2022-03-18] MEDS ORDERED: OPTIRAY 320 125ml IV ONE (06:53)
[2022-03-18 07:32] LABS: Basophils # (auto) 0.08 K/uL (0-0.2); Basophils % (auto) 0.9 %; Eosinophils # (auto) 0.53 K/uL (0-0.50); Eosinophils % (auto) 5.8 %; Hematocrit (blood only) 34.6 % (34.1-44.9); Hemoglobin 10.9 g/dl (12.0-16.0); Immature Granulocytes # (auto) 0.03 K/uL (0.00-0.02); Immature Granulocytes % (auto) 0.3 %; Lymphocytes # (auto) 2.32 K/uL (1.2-3.4); Lymphocytes % (auto) 25.6 %; Mean Corpuscular Hemoglobin 28.8 pg (25.0-34.0); Mean Corpuscular Hgb Conc 31.5 g/dL (32.0-36.0); Mean Corpuscular Volume 91.5 fL (80.0-100.0); Mean Platelet Volume 9.7 fL (9.4-12.3); Monocytes # (auto) 0.63 K/uL (0.24-0.82); Monocytes % (auto) 6.9 %; Neutrophils # (auto) 5.49 K/uL (1.4-6.5); Neutrophils % (auto) 60.5 %; Platelet Count 287 K/uL (130-400); RDW Coefficient of Variation 13.6 % (11.5-14.5); RDW Standard Deviation 45.7 fL (36.4-46.3); Red Blood Count 3.78 M/uL (3.93-5.22); White Blood Count 9.08 K/ul (4.8-10.8)
--- NOTE | 2022-03-18 07:46 | CT Scan Report ---
CT angio chest PE protocol CT DOSE: 1530.91 mGy.cm HISTORY: 51 years-old Female with CP, hx AAA repair, recent pl effusion. Acute shortness of breath with chest pain TECHNIQUE: Multiple CTA images of the chest were obtained after the intravenous administration of 232 ml Optiray. Coronal and sagittal MIPS were obtained from the axial data set and were submitted for review. All measurements were obtained according to NASCET criteria. A dose lowering technique was u tilized adhering to the principles of ALARA. COMPARISON: CTA chest 01/07/2022 FINDINGS: CTA: Moderate cardiomegaly. Moderate sized pericardial effusion measures up to 1.3 cm which has mildly dec reased in size from comparison and demonstrates mild peripheral enhancement. Type A dissection of the thoracic aorta is redemonstrated with evidence of repair involving the ascending thoracic aorta. The dissection flap is now seen originating just proximal to the origin of the innominate artery and ext ends into the innominate, left common carotid and subclavian artery origins and descending thoracic a sabrina. There is a 9 mm saccular outpouching involving the right subclavian artery on image 168 series 8 with with a small amount of adjacent hemorrhage and surgical clip. Additionally, there is a small a mount of what appears to be active extravasation along the inferior portion of the vessel. Prior medi an sternotomy with stranding within the adjacent subcutaneous and retrosternal tissues, likely expect ed postoperative changes. There is decreased mass effect upon the heart secondary to the pericardial effusion. No pulmonary emboli are identified. Suboptimal visualization of the segmental and subsegmen joan branches secondary to contrast bolus timing and respiratory motion artifact. CT CHEST: No thyroid nodule or lymphadenopathy. Inferior lung bases are only partially imaged. Trace right with [id number] left pleural effusions. No pneumothorax. Dependent consolidation of the left lung and left lung base. No acute process of the imaged upper abdomen. No acute fracture. IMPRESSION: 1. No pulmonary emboli identified. 2. Cardiomegaly with type A aortic dissection. Postoperative changes of interval median sternotomy wi th repair of the ascending thoracic aorta. 3. Dissection flap within the ascending thoracic aorta extends into the origins of the great vessels and also into the descending thoracic aorta outside the [id number]. 4. 9 mm saccular outpouching of the mid right subclavian artery with mild adjacent surgical clips and small volume of hemorrhage. Additionally, there are findings suspicious for a small amount of active extravasation of this vessel. 5. Moderate sized pericardial effusion has mildly decreased in size from the comparison study. Mild p eripheral enhancement may be on a postsurgical basis. Infection cannot be excluded by imaging alone. 6. Trace right and small to moderate left pleural effusions with left basilar atelectasis. ACT 112: Negative or not required by law. The above report was generated using voice recognition software. It may contain grammatical, syntax o r spelling errors. Electronically signed by: Surinder Case M.D. 03/18/2022 7:44 AM
[2022-03-18] MEDS ORDERED: METOPROLOL TARTRATE 25 MG TAB PO STA (09:12)
--- NOTE | 2022-03-18 09:12 | Emergency Department Note ---
History of Present Illness General Chief complaint: Shoulder Pain Stated complaint: PAIN IN LEFT SHOULDER AND IN CHEST WHEN YAWNING Time Seen by Provider: 03/18/22 04:40 Source: patient Mode of arrival: EMS Limitations: no limitations History of Present Illness Provider complaint: Left shoulder and left chest pain Onset (ago): day(s) 1 Location: chest and upper extremity Radiation: non-radiation Pain Consistency: + colicky Maximum Pain Intensity: 4 Quality: + aching and + sharp Relieved By: + none Exacerbated By: + movement Associated symptoms: + shortness of breath This is a 51-year-old female who presents emergency department due to concern for left chest and left shoulder pain. Patient with recent significant history of a aortic dissection repaired at [facility] 2 months ago. Patient was also recently admitted here a week ago due to a pericardial effusion and large left pleural effusion. Patient states she is taking her medications as prescribed. She states she is not allowed to lift more than a gallon. She states earlier this afternoon she began noticing a dull achiness to her left shoulder. She thought perhaps she had lifted more frequently than usual today. She states she then also began noticing pain in the left chest which was worse with deep inspiration and certain movements. She states the shoulder is a dull ache on the superior aspect it is otherwise nonradiating, however it does worsen with movement and certain positions. She denies fevers, chills, worsening cough, trouble breathing, dizziness. He denies nausea or vomiting. Patient has had follow-up with her CT surgeon who felt she was healing well. She has not yet had follow-up with outpatient cardiology. Pt seen during a time of high acuity and national emergency pandemic while we aring PPE. Home Medications Medication Instructions Recorded Confirmed Type levothyroxine 125 mcg tablet 125 mcg PO QAM 11/10/18 03/07/22 History levothyroxine 150 mcg tablet 150 mcg PO QAM 11/10/18 03/07/22 History lisinopril 10 mg tablet 10 mg PO QAM 11/10/18 03/07/22 History albuterol sulfate 90 mcg/actuation 2 puff inhalation Q4 PRN Wheezing 03/07/22 03/07/22 History aerosol inhaler amoxicillin 500 mg capsule 500 mg PO AMHS 03/07/22 03/07/22 History aspirin 81 mg tablet,delayed 81 mg PO QAM 03/07/22 03/07/22 History release calcium carbonate 500 mg calcium 500 mg PO Q OTHER DAY 03/07/22 03/07/22 History (1,250 mg) chewable tablet (Calcium 500) codeine 10 mg-guaifenesin 100 mg/5 5 ml PO Q4 PRN Cough 03/07/22 03/07/22 History mL oral liquid fluticasone propionate 50 2 spray intranasal AMHS 03/07/22 03/07/22 History mcg/actuation nasal spray,suspension metoprolol tartrate 25 mg tablet 25 mg PO AMHS 03/07/22 03/07/22 History potassium chloride 10 mEq 20 meq PO QAM 03/07/22 03/07/22 History tablet,extended release(part/cryst) torsemide 20 mg tablet 20 mg PO QAM 03/07/22 03/07/22 History colchicine 0.6 mg tablet (Colcrys) 0.6 mg PO BID #60 tabs 03/10/22 Rx ibuprofen 600 mg tablet 600 mg PO Q8H 30 days #90 tabs 03/10/22 Rx pantoprazole 40 mg tablet,delayed 40 mg PO BID #60 tabs 03/10/22 Rx release Allergies Allergy/AdvReac Type Severity Reaction Status Date / Time No Known Allergies Allergy Unknown Verified 03/07/22 15:07 Past Med/Surg History Medical History Abdominal pain Acute otitis media Diverticular disease Hypertension Hypokalemia Hypothyroidism Hypothyroidism Kidney stones hx Morbid obesity with BMI of 40.0-44.9, adult Surgical History History of section History of colonoscopy History of dilatation and curettage History of hysterectomy History of oral surgery gum removal History of wisdom tooth extraction Family History Other Family history not known due to adoption Social History Smoking Status: Never smoker Tobacco Type: Cigarettes Second Hand Exposure: No; Hx Alcohol Use: No Hx Substance Use: No Preferred Language: Urdu Communication Ability: [employer] Research Assistant Required: No Beliefs That Will Affect Care: None Current Living Situation: Spouse Current Living Situation Comment: Lives with and daughter Other Information That Helps Us Care for You: No Feels Safe at Home: Yes Safety Concerns: Feels Safe At This Time Assistive Devices: Glasses Review of Systems A total of 10 systems reviewed and were otherwise negative All systems reviewed & are unremarkable except as noted in HPI & below Physical Exam Vital Signs Vital Signs - 24 hr 03/18/22 09:19 03/18/22 09:19 03/18/22 10:00 Pulse Rate 88 Pulse Rate from SpO2 Sensor 88 Respiratory Rate 20 Blood Pressure 170/84 H 169/117 H Blood Pressure Mean 112 134 Pulse Oximetry 97 03/18/22 10:49 03/18/22 10:49 03/18/22 10:57 Pulse Rate 73 Pulse Rate from SpO2 Sensor Respiratory Rate 16 Blood Pressure 170/127 H 190/131 H Blood Pressure Mean 141 150 Pulse Oximetry 03/18/22 10:57 03/18/22 11:22 03/18/22 11:31 Pulse Rate 72 Pulse Rate from SpO2 Sensor Respiratory Rate 15 Blood Pressure 183/148 H 153/109 H Blood Pressure Mean 159 123 Pulse Oximetry 03/18/22 11:31 Pulse Rate 72 Pulse Rate from SpO2 Sensor Respiratory Rate 16 Blood Pressure Blood Pressure Mean Pulse Oximetry GENERAL: alert, well appearing, well nourished, no distress, non-toxic EYE EXAM: normal conjunctiva, PERRL and EOM's grossly intact OROPHARYNX: no exudate, no erythema, lips, buccal mucosa, and tongue normal and mucous membranes are moist NECK: supple, no nuchal rigidity, no adenopathy, non-tender LUNGS: Clear to auscultation. Normal chest wall mechanics, no w/r/r HEART: no murmurs, S1 normal and S2 normal ABDOMEN: abdomen soft, non-tender, normo-active bowel sounds, no masses, no rebound or guarding. BACK: Back is symmetrical on inspection and there is no deformity, no midline tenderness, no CVA tenderness. SKIN: no rashes and no bruising UPPER EXTREMITIES: upper extremities are grossly normal. FROM, nml pulses b/l. LOWER EXTREMITIES: No pitting edema. FROM, nml pulses b/l. NEURO EXAM: Normal sensorium, cranial nerves II-XII grossly intact, normal speech, no gross weakness of arms, no gross weakness of legs. Gross sensation intact. Course Course 0920: Case discussed with CT surgery, Dr. Gamez at [facility] who would perform the patient's procedure. They were able to review the CT results as the images had been sent down to their system. He does not have any concern regarding the images currently. 0950: Case discussed with Dr. Lilly. He will come and evaluate the patient in the emergency room. He will also order an echo as well as a chest x-ray. Patient updated on discussion with CT surgeon and with general cardiology. Cardiology will determine final disposition pending their evaluation and the additional studies. Administered Medications Colchicine (Colchicine 0.6 Mg Tab) 0.6 mg PO BID [facility] Stop: 04/17/22 20:59 Last Admin: 03/18/22 21:11 Dose: 0.6 mg Documented By: OBED Fluticasone Propionate (Fluticasone Propionate Na Spr 16 Gm Btl) 2 sprays NA [facility] Stop: 04/17/22 20:59 Last Admin: 03/18/22 21:12 Dose: Not Given Documented By: OBED Furosemide (Furosemide Inj 20 Mg/2 Ml Vial) 20 mg IV BID [facility] Stop: 04/17/22 15:29 Last Admin: 03/18/22 21:11 Dose: 20 mg Documented By: Admin: 03/18/22 15:44 Dose: 20 mg Documented By: RL Levothyroxine Sodium (Levothyroxine Sodium 150 Mcg Tablet) [facility] Stop: 04/18/22 06:29 Last Admin: 03/19/22 06:08 Dose: 150 mcg Documented By: OBED Levothyroxine Sodium (Levothyroxine Sodium 125 Mcg Tablet) 125 [facility]cg [facility] Stop: 04/18/22 06:29 Last Admin: 03/19/22 06:08 Dose: 125 mcg Documented By: OBED Metoprolol Tartrate (Metoprolol Tartrate 25 Mg Tab) 25 mg PO [facility] Stop: 04/17/22 20:59 Last Admin: 03/18/22 21:11 Dose: 25 mg Documented By: OBED Discontinued Medications Furosemide (Furosemide Inj 20 Mg/2 Ml Vial) 20 mg IV ONE ONE Stop: 03/18/22 11:02 Last Admin: 03/18/22 11:18 Dose: 20 mg Documented By: CHELI Hydralazine HCl (Hydralazine Hcl 20 Mg/Ml Vial) 10 mg IV NOW STA Stop: 03/18/22 11:04 Last Admin: 03/18/22 11:10 Dose: 10 mg Documented By: CHELI Acetaminophen (Ofirmev) 1,000 mg in 100 mls @ 400 mls/hr IV NOW STA Stop: 03/18/22 09:52 Last Infusion: 03/18/22 10:25 Dose: 0 mls/hr Documented By: Admin: 03/18/22 10:02 Dose: 400 mls/hr Documented By: CHELI Ioversol (Optiray 320 125ml) 232 ml IV ONCE ONE Stop: 03/18/22 06:54 Last Admin: 03/18/22 06:54 Dose: 232 ml Documented By: FERNANDO Metoprolol Tartrate (Metoprolol Tartrate 25 Mg Tab) 25 mg PO NOW STA Stop: 03/18/22 09:13 Last Admin: 03/18/22 09:17 Dose: 25 mg Documented By: CHELI Morphine Sulfate (Morphine Sulfate 4 Mg/Ml 1 Ml Carp\Vial) 4 mg IV NOW STA Stop: 03/18/22 06:25 Last Admin: 03/18/22 06:32 Dose: 4 mg Documented By: CHESTER Potassium Chloride (Potassium Chloride Crtab 20 Meq Tabcr) 40 meq PO NOW STA Stop: 03/18/22 10:03 Last Admin: 03/18/22 10:14 Dose: 40 meq Documented By: CHELI Potassium Chloride (Potassium Chloride Crtab 20 Meq Tabcr) 20 meq PO NOW STA Stop: 03/18/22 11:03 Last Admin: 03/18/22 11:10 Dose: 20 meq Documented By: CHELI Medical Decision Making Differential Diagnosis Differential diagnoses includes but is not limited to acute coronary syndrome, myocardial infarction, pericarditis, pulmonary embolus, aortic dissection, pneumonia, pneumothorax, musculoskeletal, shingles, esophageal. Medical Records Attestation: I reviewed the patient's medical records. Home Medications Current Medication List: was personally reviewed by me Laboratory Data Attestation: I reviewed the patient's lab results. Result diagrams: 03/19/22 04:02 03/19/22 04:02 Lab Results 03/18/22 03/18/22 03/18/22 Range/Units 06:17 06:58 09:55 WBC 9.08 (4.8-10.8) K/ul RBC 3.78 L (3.93-5.22) M/uL Hgb 10.9 L (12.0-16.0) g/dl Hct 34.6 (34.1-44.9) % MCV 91.5 (80.0-100.0) fL MCH 28.8 (25.0-34.0) pg MCHC 31.5 L (32.0-36.0) g/dL RDW Std Deviation 45.7 (36.4-46.3) fL RDW Coeff of Jacinto 13.6 (11.5-14.5) % Plt Count 287 (130-400) K/uL MPV 9.7 (9.4-12.3) fL Immature Gran % (Auto) 0.3 % Neut % (Auto) 60.5 % Lymph % (Auto) 25.6 % Howell % (Auto) 6.9 % Eos % (Auto) 5.8 % Baso % (Auto) 0.9 % Neut # (Auto) 5.49 (1.4-6.5) K/uL Lymph # (Auto) 2.32 (1.2-3.4) K/uL Howell # (Auto) 0.63 (0.24-0.82) K/uL Eos # (Auto) 0.53 H (0-0.50) K/uL Baso # (Auto) 0.08 (0-0.2) K/uL Immature Gran # (Auto) 0.03 H (0.00-0.02) K/uL PT 10.7 (9.0-12.0) Seconds INR 1.0 (0.9-1.1) Troponin I High Sens 12.2 (0-14) pg/ml Imaging Data Radiologist's Impression: Chest CTA 03/18/22 04:54 CT angio chest PE protocol CT DOSE: 1530.91 mGy.cm HISTORY: 51 years-old Female with CP, hx AAA repair, recent pl effusion. Acute shortness of breath with chest pain TECHNIQUE: Multiple CTA images of the chest were obtained after the intravenous administration of 232 ml Optiray. Coronal and sagittal MIPS were obtained from the axial data set and were submitted for review. All measurements were obtained according to NASCET criteria. A dose lowering technique was utilized adhering to the principles of ALARA. COMPARISON: CTA chest 01/07/2022 FINDINGS: CTA: Moderate cardiomegaly. Moderate sized pericardial effusion measures up to 1.3 cm which has mildly decreased in size from comparison and demonstrates mild peripheral enhancement. Type A dissection of the thoracic aorta is redemonstrated with evidence of repair involving the ascending thoracic aorta. The dissection flap is now seen originating just proximal to the origin of the innominate artery and extends into the innominate, left common carotid and subclavian artery origins and descending thoracic aorta. There is a 9 mm saccular outpouching involving the right subclavian artery on image 168 series 8 with with a small amount of adjacent hemorrhage and surgical clip. Additionally, there is a small amount of what appears to be active extravasation along the inferior portion of the vessel. Prior median sternotomy with stranding within the adjacent subcutaneous and retrosternal tissues, likely expected postoperative changes. There is decreased mass effect upon the heart secondary to the pericardial effusion. No pulmonary emboli are identified. Suboptimal visualization of the segmental and subsegmental branches secondary to contrast bolus timing and respiratory motion artifact. CT CHEST: No thyroid nodule or lymphadenopathy. Inferior lung bases are only partially imaged. Trace right with [id number] left pleural effusions. No pneumothorax. Dependent consolidation of the left lung and left lung base. No acute process of the imaged upper abdomen. No acute fracture. IMPRESSION: 1. No pulmonary emboli identified. 2. Cardiomegaly with type A aortic dissection. Postoperative changes of interval median sternotomy with repair of the ascending thoracic aorta. 3. Dissection flap within the ascending thoracic aorta extends into the origins of the great vessels and also into the descending thoracic aorta outside the [id number]. 4. 9 mm saccular outpouching of the mid right subclavian artery with mild adjacent surgical clips and small volume of hemorrhage. Additionally, there are findings suspicious for a small amount of active extravasation of this vessel. 5. Moderate sized pericardial effusion has mildly decreased in size from the comparison study. Mild peripheral enhancement may be on a postsurgical basis. Infection cannot be excluded by imaging alone. 6. Trace right and small to moderate left pleural effusions with left basilar atelectasis. ACT 112: Negative or not required by law. The above report was generated using voice recognition software. It may contain grammatical, syntax or spelling errors. Electronically signed by: Surinder Case M.D. 03/18/2022 7:44 AM ECG Data Attestation: I personally reviewed and interpreted this ECG as follows: Indication: + chest pain Rate (beats per minute): 84 Rhythm: + normal sinus ECG Intervals/blocks: + Normal QRS and + Normal QT ECG [place]: + Normal ECG ST segments: + Nonspecific ST abnormalities Additional Comments: low voltage MDM Narrative An order was placed for continuous cardiac monitoring. The monitor shows a rate of _85__ with _normal sinus__ rhythm. This is a 51-year-old female who presents due to concern for chest pain. Patient with significant recent history including an aortic dissection that was repaired at [facility]. Patient also recently admitted here for pericardial effusion and large pleural effusion. Patient states she has been taking medications as prescribed and was feeling well until chest pain began this evening. Patient was hemodynamically stable and afebrile. Initial labs reassuring with mild hypokalemia which was repleted orally, and very mild troponin elevation. Patient sent for CT given recent surgery. Given abnormal findings as read by radiology, case discussed with CT surgeon at [facility] who was agreeable to review the images in their system. They had no concerns regarding the images and the patient's complaints. Case then discu ssed with [facility] cardiology who will come and evaluate the patient in the emergency room as well as perform additional testing to determine appropriate disposition. Patient verbalized understanding of all this and was in agreement with plan. Impression & Plan Chest pain, Pericardial effusion, Hypokalemia, Elevated troponin Discharge Plan Visit Data Chief Complaint: Shoulder Pain Stated Complaint: PAIN IN LEFT SHOULDER AND IN CHEST WHEN YAWNING ED Provider: Betsy Vela Discharge Problem: Chest pain, Pericardial effusion, Hypokalemia, Elevated troponin Patient Disposition: Admitted As Inpatient Discharge Instructions Interventions: ED Discharge Assessment Last Done: 03/18/22 14:35
--- NOTE | 2022-03-18 09:22 | Electrocardiogram Report ---
Test Reason : Blood Pressure : / mmHG Vent. Rate : 084 BPM Atrial Rate : 084 BPM P-R Int : 188 ms QRS Dur : 104 ms QT Int : 380 ms P-R-T Axes : 030 204 021 degrees QTc Int : 449 ms Normal sinus rhythm Low voltage QRS Incomplete right bundle branch block Possible Old Anterior infarct Abnormal ECG When compared with ECG of 07-MAR-2022 14:03, No significant change Confirmed by Bronson Angulo ([id number]) on 03/18/2022 9:21:49 AM Referred By: REFERRED SELF Confirmed By:Bronson Angulo
[2022-03-18] MEDS ORDERED: ACETAMINOPHEN 1,000 MG/100 ML VIAL IV STA (09:38)
[2022-03-18] MEDS ORDERED: POTASSIUM CHLORIDE CRTAB 20 MEQ TABCR PO STA ×2 (10:02→11:02)
[2022-03-18] MEDS ORDERED: FUROSEMIDE INJ 20 MG/2 ML VIAL IV ONE (11:01)
[2022-03-18] MEDS ORDERED: hydrALAZINE HCL 20 MG/ML VIAL IV STA (11:03)
--- NOTE | 2022-03-18 11:15 | XRay Report ---
XR chest 1V portable HISTORY: 51 years-old Female left pleural effusion small left pleural effusion COMPARISON: CTA chest of same day TECHNIQUE: Portable AP view of the chest FINDINGS: Cardiac silhouette is enlarged. Prior median sternotomy. No pneumothorax or overt pulmonary edema. Sm all left pleural effusion with left basilar consolidation. Bones appear grossly intact. Surgical clip s of the right axilla. IMPRESSION: 1. Cardiomegaly with prior median sternotomy. 2. Small left pleural effusion with left basilar consolidation. ACT 112: Negative or not required by law. The above report was generated using voice recognition software. It may contain grammatical, syntax o r spelling errors. Electronically signed by: Surinder Case M.D. 03/18/2022 11:14 AM
--- NOTE | 2022-03-18 11:35 | Cardiology Consultation ---
Date of Consultation March 18, 2022 Assessment & Plan (1) Hypertensive urgency: (2) Hypokalemia: (3) CHF (congestive heart failure): (4) Status post thoracic aortic aneurysm repair: (5) Pericardial effusion: -Acute heart failure with preserved ejection fraction. -Possible component of post operative pleuropericarditis. BP uncontrolled. Higher than recent baseline at time of discharge. Proceed with cautious diuretic therapy given increase in creatinine compared to prior and administration of IV contrast. Potassium replacement ordered , has received 60 meq orally. 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 Hold Ibuprofen for now given increased creatinine and high BP. Continue colchicine. Dr Zelaya had reviewed CTA findings with Dr Gamez of CT surgery at [facility] [place] wh o had performed the procedure, and opinion provided that it was felt stable post op findings present. History of Present Illness History of Present Illness Delores Watt is a 51 year old female seen in cardiology consultation in room B7 of the ED per the request of Dr Zelaya and Dr Vlea for the evaluation of left shoulder and chest discomfort in this patient with a complex recent cardiac history. Patient's case well known to the undersigned. 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 The patient was found to have hemopericardium and was hypotensive. She was intubated and transferred by air to [facility] where she underwent emergent operative repair. After her initial outpatient cardiology follow-up visit she had complained of progressive shortness of breath, lower extremity edema prompting transthoracic echocardiogram and chest x-ray performed 03/08/2022 revealing a moderate circumferential pericardial effusion and large left pleural effusion with near opacification of the left lung. This prompted presentation to the emergency department. She underwent thoracentesis yielding 1500 mL of pleural fluid from the left lung, she was admitted for ongoing diuretic therapy. Due to concerns of pleuropericarditis she was discharged on colchicine as well as ibuprofen. She was also discharged on torsemide 20 mg daily. She notes that she has been adherent with her medications. Yesterday she was helping move 1 gallon jugs of water and have removed 15 of them. This was really the first exertion that she had performed since her surgery. She felt okay while she was performing the exertion with no chest symptoms, but shortly thereafter she had waxing and waning resting pain in her left shoulder and under the left breast, and also a pleuritic discomfort when taking deep breath. She was restless and unable to sleep, prompting presentation to the emergency room at approximately [address] angiogram was performed revealing postoperative changes of her ascending dissection repair, with residual dissection flap extending to the iliac artery and a dissection flap we also noted to extend to the right innominate artery with noted 9 mm saccular outpouching in the mid right subclavian. The patient was seen by the undersigned in the emergency room. A repeat echocardiogram was performed revealing ongoing moderate circumferential pericardial effusion without tamponade. Left pleural effusion noted. Blood pressure very high, with blood pressure in the right upper extremity 170/127 and the left upper extremity 190/131 at the time of my evaluation. Patient is comfortable with no complaints at the time of this blood pressure readings which were obtained personally. Allergies Allergy/AdvReac Type Severity Reaction Status Date / Time No Known Allergies Allergy Unknown Verified 03/07/22 15:07 Home Medications Medication Instructions Recorded Confirmed Type levothyroxine 125 mcg tablet 125 mcg PO QAM 11/10/18 03/07/22 History levothyroxine 150 mcg tablet 150 mcg PO QAM 11/10/18 03/07/22 History lisinopril 10 mg tablet 10 mg PO QAM 11/10/18 03/07/22 History albuterol sulfate 90 mcg/actuation 2 puff inhalation Q4 PRN Wheezing 03/07/22 03/07/22 History aerosol inhaler amoxicillin 500 mg capsule 500 mg PO COUNTS INCLUDE 234 BEDS AT THE [facility] 03/07/22 03/07/22 History aspirin 81 mg tablet,delayed 81 mg PO QAM 03/07/22 03/07/22 History release calcium carbonate 500 mg calcium 500 mg PO Q OTHER DAY 03/07/22 03/07/22 History (1,250 mg) chewable tablet (Calcium 500) codeine 10 mg-guaifenesin 100 mg/5 5 ml PO Q4 PRN Cough 03/07/22 03/07/22 History mL oral liquid fluticasone propionate 50 2 spray intranasal COUNTS INCLUDE 234 BEDS AT THE [facility] 03/07/22 03/07/22 History mcg/actuation nasal spray,suspension metoprolol tartrate 25 mg tablet 25 mg PO AMHS 03/07/22 03/07/22 History potassium chloride 10 mEq 20 meq PO QAM 03/07/22 03/07/22 History tablet,extended release(part/cryst) torsemide 20 mg tablet 20 mg PO QAM 03/07/22 03/07/22 History colchicine 0.6 mg tablet (Colcrys) 0.6 mg PO BID #60 tabs 03/10/22 Rx ibuprofen 600 mg tablet 600 mg PO Q8H 30 days #90 tabs 03/10/22 Rx pantoprazole 40 mg tablet,delayed 40 mg PO BID #60 tabs 03/10/22 Rx release Patient History Medical History Abdominal pain Acute otitis media Diverticular disease Hypertension Hypokalemia Hypothyroidism Hypothyroidism Kidney stones hx Morbid obesity with BMI of 40.0-44.9, adult Surgical History History of section History of colonoscopy History of dilatation and curettage History of hysterectomy History of oral surgery gum removal History of wisdom tooth extraction Family History Other Family history not known due to adoption Social History Smoking Status: Never smoker Tobacco Type: Cigarettes Second Hand Exposure: No; Hx Alcohol Use: No Hx Substance Use: No Preferred Language: Kuwaiti Communication Ability: Effective 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 Beliefs That Will Affect Care: None Current Living Situation: Spouse Current Living Situation Comment: Lives with and daughter Feels Safe at Home: Yes Assistive Devices: None Review of Systems Review of Systems: All systems reviewed & are unremarkable except as noted in HPI & below Physical Exam Physical Exam: Temp Pulse Resp BP Pulse Ox O2 Del Method 35.4 C L 72 16 153/109 H 97 03/18/22 03:17 03/18/22 11:31 03/18/22 11:31 03/18/22 11:31 03/18/22 09:19 03/18/22 03:17 Constitutional: well developed; no acute distress Respiratory: Auscultation: + diminished lung sounds (decreased BS of the L>R bases ); no crackles and no rales Cardiovascular: Rate/Rhythm: regular rate and regular rhythm Heart Sounds: no murmur Extremities: + edema (trace to 1+ edema ) Chest (Breasts): Additional Comments: well healed sternotimy incision Gastrointestinal (Abdomen): normal bowel sounds, soft, nontender, no hepatosplenomegaly Neurologic: PERRL, EOMI, accommodation nl, no face palsy, no dysarthria Results & Data ([facility]) Laboratory Results Cardiac Enzymes 03/18/22 03/18/22 Range/Units 09:55 Unknown AST 18 (13-39) U/L Troponin I High Sens 12.2 15.0 H (0-14) pg/ml Coagulation 03/18/22 Range/Units 06:17 PT 10.7 (9.0-12.0) Seconds CBC 03/18/22 Range/Units 06:58 WBC 9.08 (4.8-10.8) K/ul RBC 3.78 L (3.93-5.22) M/uL Hgb 10.9 L (12.0-16.0) g/dl Hct 34.6 (34.1-44.9) % Plt Count 287 (130-400) K/uL Neut # (Auto) 5.49 (1.4-6.5) K/uL Lymph # (Auto) 2.32 (1.2-3.4) K/uL Baker # (Auto) 0.63 (0.24-0.82) K/uL Eos # (Auto) 0.53 H (0-0.50) K/uL Baso # (Auto) 0.08 (0-0.2) K/uL Comprehensive Metabolic Panel 03/18/22 Range/Units Unknown Sodium 140 (136-145) mmol/L Potassium 3.3 L (3.5-5.1) mmol/L Chloride 103 (98-107) mmol/L Carbon Dioxide 29 (21-32) mmol/L BUN 26 H (6-23) mg/dl Creatinine 1.37 H (0.6-1.2) mg/dl Glucose 119 H (70-99(Fasting)) mg/dl Calcium 9.4 (8.5-10.1) mg/dl AST 18 (13-39) U/L ALT 7 (7-52) U/L Alkaline Phosphatase 68 (34-104) U/L Total Protein 7.3 (6.0-8.3) gm/dl Albumin 3.9 (3.4-5.0) gm/dl Intake and Output 03/17/22 03/18/22 03/18/22 22:59 06:59 14:59 Intake Total 100 / 100 Balance 100 / 100 Intake: IV 100 / 100 Acetaminophen 1,000 mg In 100 100 / 100 ml @ 400 mls/hr IV NOW [facility] [place] Rx#: [id number] Other: Weight 118.2 kg
--- NOTE | 2022-03-18 11:56 | History & Physical Report ---
Date of Service March 18, 2022 Assessment & Plan (1) Hypertensive urgency: (2) Pericardial effusion: (3) Pleural effusion: (4) CHF (congestive heart failure): (5) Hypokalemia: (6) ANNABELLE (obstructive sleep apnea): (7) Status post thoracic aortic aneurysm repair: (8) Hypothyroidism: Plan 51 year old female with aortic dissection rocio type A s/p AAA repair in [place] on 01/07 and recent admission to [facility] 03/10 for pleural and pericardial effusion presented to the ED for left shoulder and chest pain. Evaluated by cardiology. ED physician discussed with the surgeon at [place] regarding the CT finding of dissection flap and it was felt stable post op findings CT chest 1. No pulmonary emboli identified. 2. Cardiomegaly with type A aortic dissection. Postoperative changes of interval median sternotomy with repair of the ascending thoracic aorta. 3. Dissection flap within the ascending thoracic aorta extends into the origins of the great vessels and also into the descending thoracic aorta outside the [id number]. 4. 9 mm saccular outpouching of the mid right subclavian artery with mild adjacent surgical clips and small volume of hemorrhage. Additionally, there are findings suspicious for a small amount of active extravasation of this vessel. 5. Moderate sized pericardial effusion has mildly decreased in size from the comparison study. Mild peripheral enhancement may be on a postsurgical basis. Infection cannot be excluded by imaging alone. 6. Trace right and small to moderate left pleural effusions with left basilar atelectasis. HTNsive urgency - BP elevated ?being contributed by NSAIDs and not taking her morning medications as she has been in the ED since 3 am. Hold NSAIDs. Given HLZ, metoprolol, lasix in ED with improvement in BP. Continue home medications. Will have iv hydralazine prn. Thoracic and aortic AAA with dissection s/p repair at [place] 01/07- CT finding was reviewed by ED physician with the surgeon at [place] and it was felt stable post op finding. Pericardial effusion/pleural- improved from before. S/p echo today - Discussed with cardio- continue colchicine, hold NSAIDs per cardio Chronic diastolic CHF- looks euvolemic overall. Holding torsemide and continuing iv lasix 20 bid as per cardio recommendation. Daily weight, strict I and Os. Labs in am. Hypokalemia- repleted, recheck in am Hypothyroidism- continue synthroid CKD2 with elevated Creatinine- Cr mildly elevated from baseline. hold NSAIDs. received contrast. Monitor Cr with diuresis. Elevated trop- CP is atypical. Trop minimally elevated. Will trend trop and monitor on tele DVT ppx- SCDs Dispo- Admit to PCU tele History of Present Illness Chief Complaint: left shoulder/chest pain Primary Care Provider: Bronson Jovel MD 51 year old female with complicated recent cardiac history with aortic dissection s/p repair at [place] presented to the ED with left shoulder and chest pain. She had syncopal episode 01/07/22 and found to have [place] type A dissection of ascending thoracic aorta along with hemopericardium and hypotension for which she was intubated and transferred by air to [facility] where she underwent emergent repair and discharged home on 01/19. She then had progressive shortness of breath with leg swelling and was found to have moderate pericardial effusion along with left pleural effusion for which she was sent to the ED. She was admitted to [facility] from 03/07-03/10 and she underwent left thoracentesis with removal of 1500 cc. She was started on IV diuretics with good response. She was discharged home on 03/10 with colchicine, ibuprofen, torsemide per cardiology recommendation. She was doing fine until yesterday. She was moving 1 gallon jugs of water yesterday and removed 15 of them after which she developed left shoulder and chest pain under her left breast for which she presented to ED at 3 am. Work-up in the ED with CT angiogram showed postoperative changes of her dissection repair with residual dissection flap. She was also noted to be hypertensive and hypokalemic. ED physician discussed with her surgeon in [place] regarding the CT findings and was felt to be stable postop findings. She was seen by cardiology and underwent repeat echocardiogram which showed ongoing moderate circumferential pericardial effusion without tamponade and some left pleural effusion. Hospitalist service was consulted for admission and further management. During my encounter, she was sitting comfortably in bed. She states pain itself is mild but the reason she came to ED was because of her complicated recent history. Denies any N/V/SOB, fever, chills cough. She is compliant with her meds but has not taken any today yet as she has been in ED since 3 am. Allergies Allergy/AdvReac Type Severity Reaction Status Date / Time No Known Allergies Allergy Unknown Verified 03/07/22 15:07 Home Medications Medication Instructions Recorded Confirmed Type levothyroxine 125 mcg tablet 125 mcg PO QAM 11/10/18 03/07/22 History levothyroxine 150 mcg tablet 150 mcg PO QAM 11/10/18 03/07/22 History lisinopril 10 mg tablet 10 mg PO QAM 11/10/18 03/07/22 History albuterol sulfate 90 mcg/actuation 2 puff inhalation Q4 PRN Wheezing 03/07/22 03/07/22 History aerosol inhaler amoxicillin 500 mg capsule 500 mg PO AMHS 03/07/22 03/07/22 History aspirin 81 mg tablet,delayed 81 mg PO QAM 03/07/22 03/07/22 History release calcium carbonate 500 mg calcium 500 mg PO Q OTHER DAY 03/07/22 03/07/22 History (1,250 mg) chewable tablet (Calcium 500) codeine 10 mg-guaifenesin 100 mg/5 5 ml PO Q4 PRN Cough 03/07/22 03/07/22 History mL oral liquid fluticasone propionate 50 2 spray intranasal AMHS 03/07/22 03/07/22 History mcg/actuation nasal spray,suspension metoprolol tartrate 25 mg tablet 25 mg PO AMHS 03/07/22 03/07/22 History potassium chloride 10 mEq 20 meq PO QAM 03/07/22 03/07/22 History tablet,extended release(part/cryst) torsemide 20 mg tablet 20 mg PO QAM 03/07/22 03/07/22 History colchicine 0.6 mg tablet (Colcrys) 0.6 mg PO BID #60 tabs 03/10/22 Rx ibuprofen 600 mg tablet 600 mg PO Q8H 30 days #90 tabs 03/10/22 Rx pantoprazole 40 mg tablet,delayed 40 mg PO BID #60 tabs 03/10/22 Rx release Past Med/Surg History Medical History Abdominal pain Acute otitis media Diverticular disease Hypertension Hypokalemia Hypothyroidism Hypothyroidism Kidney stones hx Morbid obesity with BMI of 40.0-44.9, adult Surgical History History of section History of colonoscopy History of dilatation and curettage History of hysterectomy History of oral surgery gum removal History of wisdom tooth extraction Family History Other Family history not known due to adoption Social History Smoking Status: Never smoker Tobacco Type: Cigarettes Second Hand Exposure: No; Hx Alcohol Use: No Hx Substance Use: No Preferred Language: Portuguese Communication Ability: Effective Medical Appointment Clerk Required: No Beliefs That Will Affect Care: None Current Living Situation: Spouse Current Living Situation Comment: Lives with and daughter Feels Safe at Home: Yes Assistive Devices: None Review of Systems Review of Systems: All systems reviewed & are unremarkable except as noted in Subjective Physical Exam Physical Exam: General: Sitting comfortably in bed, not in distress, on room air HEENT: EOMI, RAULITO, MMM Chest: Clear breath sounds bilaterally, no wheezes or crackles CVS: Regular rate and rhythm, normal heart sounds, no murmur Abdomen: Soft, non tender, not distended, normal bowel sounds Neuro: Awake, alert, oriented, conversing well, non focal Extremities: Trace LE edema Results & Data Results & Data ([facility]) Vital Signs (Past 12 Hours) Vital Signs Temp Pulse Resp BP Pulse Ox O2 Del Method 03/18/22 11:31 72 16 03/18/22 11:31 153/109 H 03/18/22 11:22 183/148 H 03/18/22 10:57 72 15 03/18/22 10:57 190/131 H 03/18/22 10:49 73 16 03/18/22 10:49 170/127 H 03/18/22 10:00 169/117 H 03/18/22 09:19 88 20 97 03/18/22 09:19 170/84 H 03/18/22 08:00 99 03/18/22 08:00 151/102 H 03/18/22 07:30 98 03/18/22 07:30 166/114 H 03/18/22 07:06 86 L 03/18/22 07:06 158/122 H 03/18/22 06:20 86 23 183/121 H 78 L 03/18/22 06:17 85 03/18/22 05:00 83 16 172/118 H 03/18/22 04:30 80 15 149/105 H 91 03/18/22 04:24 83 18 90 03/18/22 03:17 35.4 C L 86 18 181/123 H 92 Room Air Laboratory Results Short CBC 03/18/22 Range/Units 06:58 WBC 9.08 (4.8-10.8) K/ul Hgb 10.9 L (12.0-16.0) g/dl Hct 34.6 (34.1-44.9) % Plt Count 287 (130-400) K/uL BMP 03/18/22 Unknown Sodium 140 Potassium 3.3 L Chloride 103 Carbon Dioxide 29 BUN 26 H Creatinine 1.37 H Glucose 119 H Calcium 9.4 Liver Function 03/18/22 Range/Units Unknown Total Bilirubin 0.4 (0.2-1.0) mg/dl AST 18 (13-39) U/L ALT 7 (7-52) U/L Alkaline Phosphatase 68 (34-104) U/L Albumin 3.9 (3.4-5.0) gm/dl Diagnostic Findings Chest CTA 03/18/22 04:54 CT angio chest PE protocol CT DOSE: 1530.91 mGy.cm HISTORY: 51 years-old Female with CP, hx AAA repair, recent pl effusion. Acute shortness of breath with chest pain TECHNIQUE: Multiple CTA images of the chest were obtained after the intravenous administration of 232 ml Optiray. Coronal and sagittal MIPS were obtained from the axial data set and were submitted for review. All measurements were obtained according to NASCET criteria. A dose lowering technique was utilized adhering to the principles of ALARA. COMPARISON: CTA chest 01/07/2022 FINDINGS: CTA: Moderate cardiomegaly. Moderate sized pericardial effusion measures up to 1.3 cm which has mildly decreased in size from comparison and demonstrates mild peripheral enhancement. Type A dissection of the thoracic aorta is redemonstrated with evidence of repair involving the ascending thoracic aorta. The dissection flap is now seen originating just proximal to the origin of the innominate artery and extends into the innominate, left common carotid and subclavian artery origins and descending thoracic aorta. There is a 9 mm saccular outpouching involving the right subclavian artery on image 168 series 8 with with a small amount of adjacent hemorrhage and surgical clip. Additionally, there is a small amount of what appears to be active extravasation along the inferior portion of the vessel. Prior median sternotomy with stranding within the adjacent subcutaneous and retrosternal tissues, likely expected postoperative changes. There is decreased mass effect upon the heart secondary to the pericardial effusion. No pulmonary emboli are identified. Suboptimal visualization of the segmental and subsegmental branches secondary to contrast bolus timing and respiratory motion artifact. CT CHEST: No thyroid nodule or lymphadenopathy. Inferior lung bases are only partially imaged. Trace right with [id number] left pleural effusions. No pneumothorax. Dependent consolidation of the left lung and left lung base. No acute process of the imaged upper abdomen. No acute fracture. IMPRESSION: 1. No pulmonary emboli identified. 2. Cardiomegaly with type A aortic dissection. Postoperative changes of interval median sternotomy with repair of the ascending thoracic aorta. 3. Dissection flap within the ascending thoracic aorta extends into the origins of the great vessels and also into the descending thoracic aorta outside the [id number]. 4. 9 mm saccular outpouching of the mid right subclavian artery with mild adjacent surgical clips and small volume of hemorrhage. Additionally, there are findings suspicious for a small amount of active extravasation of this vessel. 5. Moderate sized pericardial effusion has mildly decreased in size from the comparison study. Mild peripheral enhancement may be on a postsurgical basis. Infection cannot be excluded by imaging alone. 6. Trace right and small to moderate left pleural effusions with left basilar atelectasis. ACT 112: Negative or not required by law. The above report was generated using voice recognition software. It may contain grammatical, syntax or spelling errors. Electronically signed by: Surinder Case M.D. 03/18/2022 7:44 AM Chest X-Ray 03/18/22 10:03 XR chest 1V portable HISTORY: 51 years-old Female left pleural effusion small left pleural effusion COMPARISON: CTA chest of same day TECHNIQUE: Portable AP view of the chest FINDINGS: Cardiac silhouette is enlarged. Prior median sternotomy. No pneumothorax or overt pulmonary edema. Small left pleural effusion with left basilar consolidation. Bones appear grossly intact. Surgical clips of the right axilla. IMPRESSION: 1. Cardiomegaly with prior median sternotomy. 2. Small left pleural effusion with left basilar consolidation. ACT 112: Negative or not required by law. The above report was generated using voice recognition software. It may contain grammatical, syntax or spelling errors. Electronically signed by: Surinder Case M.D. 03/18/2022 11:14 AM
[2022-03-18] MEDS ORDERED: ALBUTEROL HFA 8 GM INHALER INH PRN (14:58)
[2022-03-18] MEDS ORDERED: hydrALAZINE HCL 20 MG/ML VIAL IV PRN (14:58)
[2022-03-18] MEDS: FUROSEMIDE INJ 20 MG/2 ML VIAL IV SCH ×2 (15:44→21:11)
[2022-03-18] MEDS: COLCHICINE 0.6 MG TAB PO SCH (21:11)
[2022-03-18] MEDS: METOPROLOL TARTRATE 25 MG TAB PO SCH (21:11)
[2022-03-18] MEDS: FLUTICASONE PROPIONATE NA SPR 16 GM BTL SCH (21:12)
[2022-03-19 04:27] LABS: Hematocrit (blood only) 35.6 % (34.1-44.9); Hemoglobin 11.6 g/dl (12.0-16.0); Mean Corpuscular Hemoglobin 28.9 pg (25.0-34.0); Mean Corpuscular Hgb Conc 32.6 g/dL (32.0-36.0); Mean Corpuscular Volume 88.8 fL (80.0-100.0); Platelet Count 281 K/uL (130-400); RDW Coefficient of Variation 13.6 % (11.5-14.5); RDW Standard Deviation 44.2 fL (36.4-46.3); Red Blood Count 4.01 M/uL (3.93-5.22); White Blood Count 8.42 K/ul (4.8-10.8)
[2022-03-19 04:47] LABS: BUN Creatinine Ratio 19.5 (10-20); Calcium 9.6 mg/dl (8.5-10.1); Creatinine Clr Calc Pharmacy 73.5 ml/min; Est GFR (African American) 62.3 ml/min; Est GFR (Non-African American) 53.7 ml/min; Magnesium 2.1 mg/dl (1.7-2.4); Phosphorus 3.5 mg/dl (2.5-4.9); Potassium 3.2 mmol/L (3.5-5.1)
[2022-03-19 04:55] LABS: Troponin I High Sensitivity 14.5 pg/ml (0-14)
[2022-03-19] MEDS: LEVOTHYROXINE SODIUM 150 MCG TABLET PO SCH (06:08)
[2022-03-19] MEDS: LEVOTHYROXINE SODIUM 125 MCG TABLET PO SCH (06:08)
[2022-03-19] MEDS ORDERED: POTASSIUM CHLORIDE CRTAB 20 MEQ TABCR PO STA (08:29)
[2022-03-19] MEDS ORDERED: FUROSEMIDE 40 MG/4 ML VIAL IV ONE (08:55)
--- NOTE | 2022-03-19 09:14 | Cardiology Progress Note ---
Date of Service March 19, 2022 Assessment & Plan (1) Hypertensive urgency: (2) Hypokalemia: (3) CHF (congestive heart failure): (4) Status post thoracic aortic aneurysm repair: (5) Pericardial effusion: Plan: -Acute heart failure with preserved ejection fraction. -Likley a component of post operative pleuropericarditis. BP improved. Ongoing left pleural effusion noted on CXR and echo 03/18/22: * Replace potassium orally * add spironolactone * furosemide 40 mg IV this am. * metoprolol 25 mg bid * lisinopril 20 mg daily * DC ibuprofen , add prednisone , plan for 20 mg starting dose and slow taper over 3-4 weeks. * Continue protonix Add SQ lovenox for DVT prophylaxis. Will reassess later today and discuss discharge or remaining in hospital. Admission and Anticipated Discharge Date Admission Date: March 18, 2022 Subjective Pt seen in cardiology follow up. Notes left shoulder pain resolved. Some residual chest discomfort with deep inspiration. Slept in recliner. Has not returned to bed yet since surgery. 1.8 L Urine output noted in last 24 hours. Telemetry reveals SR in the 90s . Review of Systems Review of Systems: All systems reviewed & are unremarkable except as noted in HPI & below Physical Exam Physical Exam: Temp Pulse Resp BP Pulse Ox O2 Del Method 36.8 C 87 17 124/84 93 03/19/22 07:09 03/19/22 07:09 03/19/22 07:09 03/19/22 07:09 03/19/22 07:09 03/19/22 07:09 Constitutional: well developed; no acute distress Respiratory: Auscultation: + diminished lung sounds (decreased BS of the L>R bases ); no crackles and no rales Cardiovascular: Rate/Rhythm: regular rate and regular rhythm Heart Sounds: no murmur Extremities: + edema (trace to 1+ edema ) Gastrointestinal (Abdomen): normal bowel sounds, soft, nontender, no hepatosplenomegaly Neurologic: PERRL, EOMI, accommodation nl, no face palsy, no dysarthria Results & Data ([facility]) Laboratory Results Cardiac Enzymes 03/18/22 03/18/22 03/18/22 Range/Units 09:55 16:25 22:27 Troponin I High Sens 12.2 15.7 H 15.1 H (0-14) pg/ml B-Natriuretic Peptide (0-100) pg/ml 03/19/22 03/19/22 03/19/22 Range/Units 04:02 04:02 04:02 Troponin I High Sens Cancelled 14.5 H (0-14) pg/ml B-Natriuretic Peptide 167 H (0-100) pg/ml Coagulation 03/19/22 Range/Units 04:02 B-Natriuretic Peptide 167 H (0-100) pg/ml CBC 03/19/22 Range/Units 04:02 WBC 8.42 (4.8-10.8) K/ul RBC 4.01 (3.93-5.22) M/uL Hgb 11.6 L (12.0-16.0) g/dl Hct 35.6 (34.1-44.9) % Plt Count 281 (130-400) K/uL Comprehensive Metabolic Panel 03/19/22 Range/Units 04:02 Sodium 137 (136-145) mmol/L Potassium 3.2 L (3.5-5.1) mmol/L Chloride 99 (98-107) mmol/L Carbon Dioxide 30 (21-32) mmol/L BUN 23 (6-23) mg/dl Creatinine 1.18 (0.6-1.2) mg/dl Glucose 102 H (70-99(Fasting)) mg/dl Calcium 9.6 (8.5-10.1) mg/dl Intake and Output 03/18/22 03/19/22 03/19/22 22:59 06:59 14:59 Intake Total 150 / 250 Output Total 800 / 1800 1000 / 1800 Balance -800 / -1550 -850 / -1550 Intake: Oral 150 / 150 Output: Urine 800 / 1800 1000 / 1800 Other: Weight 118.6 kg 117.3 kg Weight Measurement Method Standing Scale Standing Scale
[2022-03-19] MEDS: PANTOprazole 40 MG TAB PO SCH (09:15)
[2022-03-19] MEDS: COLCHICINE 0.6 MG TAB PO SCH ×2 (09:16→19:24)
[2022-03-19] MEDS: ASPIRIN 81 MG ECTAB PO SCH (09:16)
[2022-03-19] MEDS: METOPROLOL TARTRATE 25 MG TAB PO SCH ×2 (09:16→19:24)
[2022-03-19] MEDS: POTASSIUM CHLORIDE CRTAB 20 MEQ TABCR PO SCH (09:16)
[2022-03-19] MEDS: FLUTICASONE PROPIONATE NA SPR 16 GM BTL SCH ×2 (09:16→19:23)
[2022-03-19] MEDS: lisinopril 10 MG TAB PO SCH (09:16)
[2022-03-19] MEDS: predniSONE 20 MG TAB PO SCH (10:11)
[2022-03-19] MEDS: ENOXAPARIN INJ 40 MG/0.4 ML SYR SQ SCH (10:11)
[2022-03-19] MEDS: SPIRONOLACTONE 25 MG TAB PO SCH (10:12)
[2022-03-19] MEDS ORDERED: POTASSIUM CHLORIDE CRTAB 20 MEQ TABCR PO ONE (13:00)
--- NOTE | 2022-03-19 14:08 | Hospitalist Progress Note ---
Date of Service March 19, 2022 Assessment & Plan (1) Hypertensive urgency: Plan: Noted to have significant high blood pressure on admission of systolic more than 190 Likely being contributed by NSAIDs Hold NSAIDs. Given HLZ, metoprolol, lasix in ED with improvement in BP. Continue home medications. Will have iv hydralazine prn. Appreciate cardiology input and adjustment of blood pressure medications Has been getting metoprolol 25 mg twice daily, lisinopril 20 mg daily and spironolactone Blood pressure seems to be coming down Elevated trop- CP is atypical. Trop minimally elevated. Will trend trop and monitor on tele (2) Pericardial effusion: Plan: Has pericardial effusion likely secondary to recent thoracic surgery Ibuprofen has been discontinued and started with oral prednisone 20 mg/day Pericardial effusion improved as per echo Will have tapering dose of prednisone on discharge over 3 to 4 weeks Imaging report: 51 year old female with aortic dissection rocio type A s/p AAA repair in [place] on 01/07 and [address] admission to [facility] 03/10 for pleural and pericardial effusion presented to the ED for left shoulder and chest pain. Evaluated by cardiology. ED physician discussed with the surgeon at [place] regarding the CT finding of dissection flap and it was felt stable post op findings CT chest 1. No pulmonary emboli identified. 2. Cardiomegaly with type A aortic dissection. Postoperative changes of interval median sternotomy with repair of the ascending thoracic aorta. 3. Dissection flap within the ascending thoracic aorta extends into the origins of the great vessels and also into the descending thoracic aorta outside the [id number]. 4. 9 mm saccular outpouching of the mid right subclavian artery with mild adjacent surgical clips and small volume of hemorrhage. Additionally, there are findings suspicious for a small amount of active extravasation of this vessel. 5. Moderate sized pericardial effusion has mildly decreased in size from the comparison study. Mild peripheral enhancement may be on a postsurgical basis. Infection cannot be excluded by imaging alone. 6. Trace right and small to moderate left pleural effusions with left basilar atelectasis. (3) Pleural effusion: Plan: Likely secondary to CHF and is very small amount, we will observe (4) CHF (congestive heart failure): Plan: Chronic diastolic CHF- looks euvolemic overall. Holding torsemide and continuing iv lasix 20 bid as per cardio recommendation. Daily weight, strict I and Os. Labs in am. (5) Hypokalemia: Plan: Monitor and replace (6) ANNABELLE (obstructive sleep apnea): (7) Status post thoracic aortic aneurysm repair: Plan: The sternal wound is healing nicely (8) Hypothyroidism: Plan Hypothyroidism- continue synthroid CKD2 with elevated Creatinine- Cr mildly elevated from baseline. hold NSAIDs. received contrast. Monitor Cr with diuresis. DVT ppx- SCDs Dispo- Admit to PCU tele Admission and Anticipated Discharge Date Admission Date: March 18, 2022 Subjective 03/19/2022 The patient was seen and examined in telemetry unit She is out of bed on a chair and has been feeling a lot better since admission Has minimal precordial pain without any pain in the left shoulder Denies any shortness of breath, any abdominal pain, nausea and or vomiting Review of Systems Review of Systems: All systems reviewed and are unremarkable except as noted below Cardiovascular: Additional Comments: No chest pain and/or palpitation Physical Exam Physical Exam: Sitting on a chair without any acute distress Constitutional: well developed, well nourished, + ill appearing and + morbidly obese Eyes: PERRL, conjunctivae normal, anicteric sclerae ENMT: external ear and nose normal, oropharynx normal Neck: trachea midline, no thyromegaly Respiratory: no respiratory distress Auscultation: lungs clear to auscultation bilaterally, + diminished lung sounds and + crackles (Minimal bibasilar crackles) Cardiovascular: Rate/Rhythm: regular rate and regular rhythm; not tachycardic Heart Sounds: normal S1 and normal S2; no murmur Extremities: + edema (1+ edema bilaterally) Gastrointestinal (Abdomen): Inspection/Auscultation: normal bowel sounds; abdomen not distended Percussion/Palpation: abdomen soft; abdomen nontender Musculoskeletal: No acute arthritis in any joint Neurologic: normal touch/pain/proprioception, normal sensation to monofilament and moves all extremities; no focal motor deficits Psychiatric: A+Ox3, euthymic affect Lymphatic: no cervical or axillary lymphadenopathy Results & Data Results & Data ([facility]) Vital Signs (Past 12 Hours) Vital Signs Temp Pulse Resp BP Pulse Ox O2 Del Method 03/19/22 11:17 36.7 C 85 16 91/66 L 96 Room Air 03/19/22 09:00 Room Air 03/19/22 07:09 36.8 C 87 17 124/84 93 Room Air 03/19/22 04:00 36.6 C 78 14 151/95 H 93 Room Air Laboratory Results Short CBC 03/19/22 Range/Units 04:02 WBC 8.42 (4.8-10.8) K/ul Hgb 11.6 L (12.0-16.0) g/dl Hct 35.6 (34.1-44.9) % Plt Count 281 (130-400) K/uL BMP 03/19/22 04:02 Sodium 137 Potassium 3.2 L Chloride 99 Carbon Dioxide 30 BUN 23 Creatinine 1.18 Glucose 102 H Calcium 9.6 Medications Administered Current Inpatient Medications Albuterol (Albuterol Hfa 8 Gm Inhaler) 2 puffs INH Q4R PRN PRN Reason: Wheezing Stop: 04/17/22 14:57 Aspirin (Aspirin 81 Mg Ectab) 81 mg PO [facility] Stop: 04/18/22 08:59 Last Admin: 03/19/22 09:16 Dose: 81 mg Colchicine (Colchicine 0.6 Mg Tab) 0.6 mg PO BID [facility] Stop: 04/17/22 20:59 Last Admin: 03/19/22 09:16 Dose: 0.6 mg Enoxaparin Sodium (Enoxaparin Inj 40 Mg/0.4 Ml Syr) 40 mg SQ [facility] Stop: 04/18/22 09:59 Last Admin: 03/19/22 10:11 Dose: 40 mg Fluticasone Propionate (Fluticasone Propionate Na Spr 16 Gm Btl) 2 sprays NA AMHS [facility] Stop: 04/17/22 20:59 Last Admin: 03/19/22 09:16 Dose: Not Given Hydralazine HCl (Hydralazine Hcl 20 Mg/Ml Vial) 5 mg IV Q6 PRN PRN Reason: HTN Stop: 04/17/22 14:57 Levothyroxine Sodium (Levothyroxine Sodium 150 Mcg Tablet) 150 mcg PO DAILYBB [facility] Stop: 04/18/22 06:29 Last Admin: 03/19/22 06:08 Dose: 150 mcg Levothyroxine Sodium (Levothyroxine Sodium 125 Mcg Tablet) 125 mcg PO DAILYBB [facility] Stop: 04/18/22 06:29 Last Admin: 03/19/22 06:08 Dose: 125 mcg Lisinopril (Lisinopril 10 Mg Tab) 10 mg PO [facility] Stop: 04/18/22 08:59 Last Admin: 03/19/22 09:16 Dose: 10 mg Metoprolol Tartrate (Metoprolol Tartrate 25 Mg Tab) 25 mg PO AMHS [facility] Stop: 04/17/22 20:59 Last Admin: 03/19/22 09:16 Dose: 25 mg Pantoprazole Sodium (Pantoprazole 40 Mg Tab) 40 mg PO DAILY [facility] Stop: 04/18/22 08:59 Last Admin: 03/19/22 09:15 Dose: 40 mg Potassium Chloride (Potassium Chloride Crtab 20 Meq Tabcr) 20 meq PO QAM [facility] Stop: 04/18/22 08:59 Last Admin: 03/19/22 09:16 Dose: 20 meq Prednisone (Prednisone 20 Mg Tab) 20 mg PO DAILY [facility] Stop: 03/23/22 09:01 Last Admin: 03/19/22 10:11 Dose: 20 mg Spironolactone (Spironolactone 25 Mg Tab) 25 mg PO [facility] Stop: 04/18/22 08:59 Last Admin: 03/19/22 10:12 Dose: 25 mg
[2022-03-20] MEDS: LEVOTHYROXINE SODIUM 150 MCG TABLET PO SCH (05:52)
[2022-03-20] MEDS: LEVOTHYROXINE SODIUM 125 MCG TABLET PO SCH (05:52)
--- NOTE | 2022-03-20 09:14 | Cardiology Progress Note ---
Date of Service March 20, 2022 Assessment & Plan (1) Hypertensive urgency: (2) Hypokalemia: (3) CHF (congestive heart failure): (4) Status post thoracic aortic aneurysm repair: (5) Pericardial effusion: Plan: -BP normalized. Chest and shoulder pain improved. -Acute heart failure with preserved ejection fraction. -Likely a component of post operative pleuropericarditis. * Repeat CXR and BMP this am if findings stable, likely plan for one more dose of IV furosemide and discharge later today * ibuprofen DCd , added prednisone , plan for 20 mg starting dose and slow taper over 4 weeks. * Continue protonix SQ lovenox for DVT prophylaxis. Prednisone plan: 20 mg daily x 7 days (today is day 2) 15 mg daily x 7 days 10 mg daily x 7 days 5 mg daily x 7 days 2.5 mg daily x 7 days. Admission and Anticipated Discharge Date Admission Date: March 18, 2022 Subjective Pt seen in cardiology follow up. Notes no acute complaint. SR in the 90s noted on telemetry. Physical Exam Constitutional: well developed; no acute distress Respiratory: Auscultation: + diminished lung sounds (decreased BS of the L>R bases ); no crackles and no rales Cardiovascular: Rate/Rhythm: regular rate and regular rhythm Heart Sounds: no murmur Extremities: + edema (trace to 1+ edema ) Gastrointestinal (Abdomen): normal bowel sounds, soft, nontender, no hepatosplenomegaly Neurologic: PERRL, EOMI, accommodation nl, no face palsy, no dysarthria Results & Data ([facility]) Vital Signs (Past 12 Hours) Vital Signs Temp Pulse Pulse Resp BP Pulse Ox O2 Del Method 03/20/22 08:06 36.5 C 87 18 134/82 96 Room Air 03/20/22 03:43 36.5 C 87 15 122/88 97 Room Air 03/19/22 22:30 84 03/19/22 23:05 36.6 C 79 18 126/83 92 Room Air
[2022-03-20] MEDS: ASPIRIN 81 MG ECTAB PO SCH (09:19)
[2022-03-20] MEDS: FLUTICASONE PROPIONATE NA SPR 16 GM BTL SCH (09:20)
[2022-03-20] MEDS: COLCHICINE 0.6 MG TAB PO SCH (09:20)
[2022-03-20] MEDS: ENOXAPARIN INJ 40 MG/0.4 ML SYR SQ SCH (09:20)
[2022-03-20] MEDS: lisinopril 10 MG TAB PO SCH (09:21)
[2022-03-20] MEDS: METOPROLOL TARTRATE 25 MG TAB PO SCH (09:21)
[2022-03-20] MEDS: PANTOprazole 40 MG TAB PO SCH (09:21)
[2022-03-20] MEDS: predniSONE 20 MG TAB PO SCH (09:21)
[2022-03-20] MEDS: SPIRONOLACTONE 25 MG TAB PO SCH (09:22)
[2022-03-20] MEDS: POTASSIUM CHLORIDE CRTAB 20 MEQ TABCR PO SCH (09:23)
--- NOTE | 2022-03-20 10:06 | XRay Report ---
XR chest 2V PA/lateral CLINICAL HISTORY: follow up left pleural effusion TECHNIQUE: 2 views of the chest were obtained. Comparison: Comparison is made to chest radiograph dated FINDINGS: Median sternotomy wires are unchanged. Cardiomegaly is noted. The lungs are clear. A trace left pleur al effusion is seen. IMPRESSION: Trace left pleural effusion is seen, decreased from prior exam. ACT 112: Negative or not required by law. Electronically signed by: Hayden Parekh M.D. 03/20/2022 10:05 AM
[2022-03-20 11:08] LABS: BUN Creatinine Ratio 18.3 (10-20); Creatinine Clr Calc Pharmacy 68.7 ml/min; Est GFR (African American) 57.5 ml/min; Est GFR (Non-African American) 49.6 ml/min; Potassium 3.7 mmol/L (3.5-5.1)
[2022-03-20] MEDS ORDERED: FUROSEMIDE INJ 20 MG/2 ML VIAL IV ONE (11:56)
--- NOTE | 2022-03-20 12:05 | Hospitalist Progress Note ---
Date of Service March 20, 2022 Assessment & Plan (1) Hypertensive urgency: Plan: Noted to have significant high blood pressure on admission of systolic more than 190 Likely being contributed by NSAIDs Hold NSAIDs. Given HLZ, metoprolol, lasix in ED with improvement in BP. Continue home medications. Will have iv hydralazine prn. Appreciate cardiology input and adjustment of blood pressure medications Has been getting metoprolol 25 mg twice daily, lisinopril 20 mg daily and spironolactone Blood pressure seems to be coming down Elevated trop- CP is atypical. Trop minimally elevated. Will trend trop and monitor on tele Blood pressure is well controlled with current medications She will be discharged home this afternoon (2) Pericardial effusion: Plan: Has pericardial effusion likely secondary to recent thoracic surgery Ibuprofen has been discontinued and started with oral prednisone 20 mg/day Pericardial effusion improved as per echo Will have tapering dose of prednisone on discharge over 3 to 4 weeks Imaging report: 51 year old female with aortic dissection rocio type A s/p AAA repair in [place] on 01/07 and recent admission to [facility] 03/10 for pleural and pericardial effusion presented to the ED for left shoulder and chest pain. Evaluated by cardiology. ED physician discussed with the surgeon at [place] regarding the CT finding of dissection flap and it was felt stable post op findings CT chest 1. No pulmonary emboli identified. 2. Cardiomegaly with type A aortic dissection. Postoperative changes of interval median sternotomy with repair of the ascending thoracic aorta. 3. Dissection flap within the ascending thoracic aorta extends into the origins of the great vessels and also into the descending thoracic aorta outside the [id number]. 4. 9 mm saccular outpouching of the mid right subclavian artery with mild adjacent surgical clips and small volume of hemorrhage. Additionally, there are findings suspicious for a small amount of active extravasation of this vessel. 5. Moderate sized pericardial effusion has mildly decreased in size from the comparison study. Mild peripheral enhancement may be on a postsurgical basis. Infection cannot be excluded by imaging alone. 6. Trace right and small to moderate left pleural effusions with left basilar atelectasis. (3) Pleural effusion: Plan: Likely secondary to CHF and is very small amount, we will observe Chest x-ray today showed improvement of pleural effusion (4) CHF (congestive heart failure): Plan: Chronic diastolic CHF- looks euvolemic overall. Holding torsemide and continuing iv lasix 20 bid as per cardio recommendation. Daily weight, strict I and Os. Labs in am. PRP noted this morning (5) Hypokalemia: Plan: Monitor and replace Normalized (6) ANNABELLE (obstructive sleep apnea): (7) Status post thoracic aortic aneurysm repair: Plan: The sternal wound is healing nicely (8) Hypothyroidism: Plan Hypothyroidism- continue synthroid CKD2 with elevated Creatinine- Cr mildly elevated from baseline. hold NSAIDs. re ceived contrast. Monitor Cr with diuresis. DVT ppx- SCDs Dispo- Admit to PCU tele Will be discharged home this afternoon Admission and Anticipated Discharge Date Admission Date: March 18, 2022 Subjective 03/19/2022 The patient was seen and examined in telemetry unit She is out of bed on a chair and has been feeling a lot better since admission Has minimal precordial pain without any pain in the left shoulder Denies any shortness of breath, any abdominal pain, nausea and or vomiting 03/20/2022 The patient was seen and examined in telemetry unit She has been feeling much better and denies any chest pain, shortness of breath and the leg swelling has been improving She will be discharged home this afternoon Review of Systems Review of Systems: All systems reviewed and are unremarkable except as noted below Cardiovascular: Additional Comments: No chest pain and/or palpitation Physical Exam Physical Exam: Sitting on a chair without any acute distress Constitutional: well developed, well nourished, + ill appearing and + morbidly obese Eyes: PERRL, conjunctivae normal, anicteric sclerae ENMT: external ear and nose normal, oropharynx normal Neck: trachea midline, no thyromegaly Respiratory: no respiratory distress Auscultation: lungs clear to auscultation bilaterally, + diminished lung sounds and + crackles (Minimal bibasilar crackles) Cardiovascular: Rate/Rhythm: regular rate and regular rhythm; not tachycardic Heart Sounds: normal S1 and normal S2; no murmur Extremities: + edema (1+ edema bilaterally) Gastrointestinal (Abdomen): Inspection/Auscultation: normal bowel sounds; abdomen not distended Percussion/Palpation: abdomen soft; abdomen nontender Musculoskeletal: No acute arthritis in any joint Neurologic: normal touch/pain/proprioception, normal sensation to monofilament and moves all extremities; no focal motor deficits Psychiatric: A+Ox3, euthymic affect Lymphatic: no cervical or axillary lymphadenopathy Results & Data Results & Data ([facility]) Vital Signs (Past 12 Hours) Vital Signs Temp Pulse Resp BP Pulse Ox O2 Del Method 03/20/22 08:06 36.5 C 87 18 134/82 96 Room Air 03/20/22 03:43 36.5 C 87 15 122/88 97 Room Air Laboratory Results [facility] 03/20/22 09:22 Sodium 138 Potassium 3.7 Chloride 99 Carbon Dioxide 30 BUN 23 Creatinine 1.26 H Glucose 110 H Calcium 10.0 Medications Administered Current Inpatient Medications Albuterol (Albuterol Hfa 8 Gm Inhaler) 2 puffs INH Q4R PRN PRN Reason: Wheezing Stop: 04/17/22 14:57 Aspirin (Aspirin 81 Mg Ectab) 81 mg PO [facility] Stop: 04/18/22 08:59 Last Admin: 03/20/22 09:19 Dose: 81 mg Colchicine (Colchicine 0.6 Mg Tab) 0.6 mg PO BID [facility] Stop: 04/17/22 20:59 Last Admin: 03/20/22 09:20 Dose: 0.6 mg Enoxaparin Sodium (Enoxaparin Inj 40 Mg/0.4 Ml Syr) 40 mg SQ [facility] Stop: 04/18/22 09:59 Last Admin: 03/20/22 09:20 Dose: 40 mg Fluticasone Propionate (Fluticasone Propionate Na Spr 16 Gm Btl) 2 sprays NA AMHS [facility] Stop: 04/17/22 20:59 Last Admin: 03/20/22 09:20 Dose: 2 sprays Hydralazine HCl (Hydralazine Hcl 20 Mg/Ml Vial) 5 mg IV Q6 PRN PRN Reason: HTN Stop: 04/17/22 14:57 Levothyroxine Sodium ([facility]othyroxine Sodium 150 Mcg Tablet) [facility] Stop: 04/18/22 06:29 Last Admin: 03/20/22 05:52 Dose: 150 mcg Levothyroxine Sodium (Levothyroxine Sodium 125 Mcg Tablet) 125 mcg PO DAILYBB [facility] Stop: 04/18/22 06:29 Last Admin: 03/20/22 05:52 Dose: 125 mcg Lisinopril (Lisinopril 10 Mg Tab) 10 mg PO [facility] Stop: 04/18/22 08:59 Last Admin: 03/20/22 09:21 Dose: 10 mg Metoprolol Tartrate (Metoprolol Tartrate 25 Mg Tab) 25 mg PO [facility] Stop: 04/17/22 20:59 Last Admin: 03/20/22 09:21 Dose: 25 mg Pantoprazole Sodium (Pantoprazole 40 Mg Tab) 40 mg PO DAILY [facility] Stop: 04/18/22 08:59 Last Admin: 03/20/22 09:21 Dose: 40 mg Potassium Chloride (Potassium Chloride Crtab 20 Meq Tabcr) 20 meq PO QAM [facility] Stop: 04/18/22 08:59 Last Admin: 03/20/22 09:23 Dose: 20 meq Prednisone (Prednisone 20 Mg Tab) 20 mg PO DAILY [facility] Stop: 03/23/22 09:01 Last Admin: 03/20/22 09:21 Dose: 20 mg Spironolactone (Spironolactone 25 Mg Tab) 25 mg PO QAM [facility] Stop: 04/18/22 08:59 Last Admin: 03/20/22 09:22 Dose: 25 mg
--- NOTE | 2022-03-20 18:10 | Discharge Summary ---
Date of Service March 20, 2022 Admission HPI Per Admitting Provider 51 year old female with complicated recent cardiac history with aortic dissection s/p repair at [place] presented to the ED with left shoulder and chest pain. She had syncopal episode 01/07/22 and found to have Ideal type A dissection of ascending thoracic aorta along with hemopericardium and hypotension for which she was intubated and transferred by air to [facility] where she underwent emergent repair and discharged home on 01/19. She then had progressive shortness of breath with leg swelling and was found to have moderate pericardial effusion along with left pleural effusion for which she was sent to the ED. She was admitted to [facility] from 03/07-03/10 and she underwent left thoracentesis with removal of 1500 cc. She was started on IV diuretics with good response. She was discharged home on 03/10 with colchicine, ibuprofen, torsemide per cardiology recommendation. She was doing fine until yesterday. She was moving 1 gallon jugs of water yesterday and removed 15 of them after which she developed left shoulder and chest pain under her left breast for which she presented to ED at 3 am. Work-up in the ED with CT angiogram showed postoperative changes of her dissection repair with residual dissection flap. She was also noted to be hypertensive and hypokalemic. ED physician discussed with her surgeon in [place] regarding the CT findings and was felt to be stable postop findings. She was seen by cardiology and underwent repeat echocardiogram which showed ongoing moderate circumferential pericardial effusion without tamponade and some left pleural effusion. Hospitalist service was consulted for admission and further management. During my encounter, she was sitting comfortably in bed. She states pain itself is mild but the reason she came to ED was because of her complicated recent history. Denies any N/V/SOB, fever, chills cough. She is compliant with her meds but has not taken any today yet as she has been in ED since 3 am. Admission Exam Per Admitting Provider Physical Exam: General: Sitting comfortably in bed, not in distress, on room air HEENT: EOMI, RAULITO, MMM Chest: Clear breath sounds bilaterally, no wheezes or crackles CVS: Regular rate and rhythm, normal heart sounds, no murmur Abdomen: Soft, non tender, not distended, normal bowel sounds Neuro: Awake, alert, oriented, conversing well, non focal Extremities: Trace LE edema Principal Diagnosis Hypertensive urgency, pleuropericardial effusion, status post thoracic aortic aneurysm repair Discharge Exam Sitting on a chair without any acute distress Constitutional well developed, well nourished, + ill appearing and + morbidly obese Eyes PERRL, conjunctivae normal, anicteric sclerae ENMT external ear and nose normal, oropharynx normal Neck trachea midline, no thyromegaly Respiratory no respiratory distress Auscultation: lungs clear to auscultation bilaterally, + diminished lung sounds and + crackles (Minimal bibasilar crackles) Cardiovascular Rate/Rhythm: regular rate and regular rhythm; not tachycardic Heart Sounds: normal S1 and normal S2; no murmur Extremities: + edema (1+ edema bilaterally) Gastrointestinal (Abdomen) Inspection/Auscultation: normal bowel sounds; abdomen not distended Percussion/Palpation: abdomen soft; abdomen nontender Neurologic normal touch/pain/proprioception, normal sensation to monofilament and moves all extremities; no focal motor deficits Psychiatric A+Ox3, euthymic affect Lymphatic no cervical or axillary lymphadenopathy Discharge Data Allergies Allergy/AdvReac Type Severity Reaction Status Date / Time No Known Allergies Allergy Unknown Verified 03/07/22 15:07 Consultations 03/18/22 11:46 ED Decision to Admit Stat 03/18/22 16:33 Consult Cardiology Routine Ordered Studies 03/18/22 04:54 CT angio chest PE protocol Urgent Hospital Course (1) Hypertensive urgency: Noted to have significant high blood pressure on admission of systolic more than 190 Likely being contributed by NSAIDs Hold NSAIDs. Given HLZ, metoprolol, lasix in ED with improvement in BP. Continue home medications. Will have iv hydralazine prn. Appreciate cardiology input and adjustment of blood pressure medications Has been getting metoprolol 25 mg twice daily, lisinopril 20 mg daily and spironolactone Blood pressure seems to be coming down Elevated trop- CP is atypical. Trop minimally elevated. Will trend trop and monitor on tele Blood pressure is well controlled with current medications She will be discharged home this afternoon (2) Pericardial effusion: Has pericardial effusion likely secondary to recent thoracic surgery Ibuprofen has been discontinued and started with oral prednisone 20 mg/day Pericardial effusion improved as per echo Will have tapering dose of prednisone on discharge over 3 to 4 weeks Imaging report: 51 year old female with aortic dissection rocio type A s/p AAA repair in [place] on 01/07 and recent admission to [facility] 03/10 for pleural and pericardial effusion presented to the ED for left shoulder and chest pain. Evaluated by cardiology. ED physician discussed with the surgeon at [place] regarding the CT finding of dissection flap and it was felt stable post op findings CT chest 1. No pulmonary emboli identified. 2. Cardiomegaly with type A aortic dissection. Postoperative changes of interval median sternotomy with repair of the ascending thoracic aorta. 3. Dissection flap within the ascending thoracic aorta extends into the origins of the great vessels and also into the descending thoracic aorta outside the [id number]. 4. 9 mm saccular outpouching of the mid right subclavian artery with mild adjacent surgical clips and small volume of hemorrhage. Additionally, there are findings suspicious for a small amount of active extravasation of this vessel. 5. Moderate sized pericardial effusion has mildly decreased in size from the comparison study. Mild peripheral enhancement may be on a postsurgical basis. Infection cannot be excluded by imaging alone. 6. Trace right and small to moderate left pleural effusions with left basilar atelectasis. (3) Pleural effusion: Likely secondary to CHF and is very small amount, we will observe Chest x-ray today showed improvement of pleural effusion (4) CHF (congestive heart failure): Chronic diastolic CHF- looks euvolemic overall. Holding torsemide and continuing iv lasix 20 bid as per cardio recommendation. Daily weight, strict I and Os. Labs in am. PRP noted this morning (5) Hypokalemia: Monitor and replace Normalized (6) ANNABELLE (obstructive sleep apnea): (7) Status post thoracic aortic aneurysm repair: The sternal wound is healing nicely (8) Hypothyroidism: Plan Hypothyroidism- continue synthroid CKD2 with elevated Creatinine- Cr mildly elevated from baseline. hold NSAIDs. received contrast. Monitor Cr with diuresis. DVT ppx- SCDs Dispo- Admit to PCU tele Will be discharged home this afternoon Total Time Total Time Spent Total Time Spent (In Minutes): 35 minutes Discharge Plan Discharge Items Patient Disposition: Home - Self-Care Reason For Visit: LEFT SHOULDER/CHEST PAIN Discharge Diagnosis: Hypertensive urgency, pleuropericardial effusion, status post thoracic aortic aneurysm repair Condition on Discharge: Good Activity: Resume your previous activity Non-emergency contact: Primary Care Provider Call non-emergency contact if: you have any medication questions and your symptoms worsen Follow-up/Referrals: Shaquille Lilly DO [[employer]] - (Date & Time 04/03/2022 9:30 AM Provider Shaquille Lilly DO Department Cardiology, [facility] ) Bronson Jovel MD [Primary Care Provider] - (Date & Time 03/26/2022 11:00 AM Provider Bronson Jovel MD Department Family Practice [facility] ) Diet: Heart Healthy Addtl Attending Provider Instructions: Please take precautions to avoid fall Take your medications as advised Please keep appointments with your healthcare providers Pending Studies at Discharge: No Stand-Alone Forms: My [facility], Smoking Cessation Medications and DC Order Prescriptions: New spironolactone 25 mg Tablet 25 mg PO QAM 30 Days Qty: 30 0RF prednisone 5 mg tablet 5 mg PO UD Qty: 66 0RF Rx Instructions: 4 tablets p.o. daily x5 days, 3 p.o. daily x7 days, 2 p.o. daily x7 days, 1 p.o. daily x7 days and then half p.o. daily x8 days Continued levothyroxine 125 mcg tablet 125 mcg PO QAM Rx Instructions: take with 150mcg lisinopril 10 mg tablet 10 mg PO QAM levothyroxine 150 mcg tablet 150 mcg PO QAM Rx Instructions: take with 125mcg torsemide 20 mg tablet 20 mg PO QAM aspirin 81 mg Tablet,Delayed Release (Dr/Ec) 81 mg PO QAM albuterol sulfate 90 mcg/actuation Hfa Aerosol Inhaler 2 puff INHALATION Q4 PRN (Reason: Wheezing) fluticasone propionate 50 mcg/actuation Stuart,Suspension 2 spray INTRANASAL [facility] Rx Instructions: administer into each nostril 2 sprays in morning and 2 sprays before bedtime calcium carbonate [Calcium 500] 500 mg calcium (1,250 mg) Tablet,Chewable 500 mg PO Q OTHER DAY potassium chloride 10 mEq tablet,ER particles/crystals 20 meq PO QAM metoprolol tartrate 25 mg Tablet 25 mg PO [facility] pantoprazole 40 mg Tablet,Delayed Release (Dr/Ec) 40 mg PO BID Qty: 60 0RF colchicine [Colcrys] 0.6 mg Tablet 0.6 mg PO BID Qty: 60 0RF Discontinued ibuprofen 600 mg Tablet 600 mg PO Q8H 30 Days Qty: 90 0RF Discharge Orders: Discharge Order (Routine); Ordered 03/20/22 Ordered By: Wu Shepherd Admission Data Admit Date/Time: 03/18/22 12:02 Attending Provider: Wu Shepherd Admit Provider: Bryant Edwards Primary Care Provider: Bronson Jovel Other Providers: Wu Shepherd ; Shaquille Lilly Other Interventions: Discharge Summary Assessment (RN) Last Done: 03/20/22 13:31
--- NOTE | 2022-03-26 13:39 | Coding Query ---
CONGESTIVE HEART FAILURE To Promote full compliance with coding requirements relating to patient care, physician participation is requested in all cases of electrician helper uncertainty. Please assist us with the following questions. A diagnosis of Congestive Heart Failure is documented in the patient's medical record. DS documented chronic CHF. 03/20 Cardology progress note addendum documented acute diastolic heart failure. Please check below the diagnosis treated during this IP stay. Thank you . AYDEN Tang [facility] SYSTOLIC HEART FAILURE ( ) Acute ( ) Chronic ( ) Acute on Chronic ( ) Rheumatic ( ) Unknown DIASTOLIC HEART FAILURE ) Acute ( ) Chronic ( +) Acute on Chronic ( ) Rheumatic ( ) Unknown COMBINED SYSTOLIC AND DIASTOLIC HEART FAILURE ( ) Acute ( ) Chronic ( ) Acute on Chronic ( ) Rheumatic ( ) Unknown Was the CHF Present On Admission? Please check the appropriate box: ( ) Present on Admission ( ) Not Present On Admission ( ) Clinically undetermined Thank you Gerard LYN
--- NOTE | 2022-03-26 13:47 | Coding Query ---
It was clearly documented in the progress note. CODING QUERY To promote full compliance with coding requirements relating to patient care, provider participation is requested in all cases of professional fee coder uncertainty. Please assist us with the question(s) below: Coding Question(s): Patient admitted with a pericardial effusion - status post Thoracic aortic aneurysm repair in December. Discharge Summary stated ' pericardial effusion , likely secondary to recent thoracic surgery". Please check below the phrase that describes the pericardial effusion. Thanks for your help! AYDEN Tang [facility] Physician's Response(s): ___X____ The pericardial effusion was a postoperative complication of the thoracic surgery. The pericardial effusion was an expected outcome of the thoracic surgery. Cannot clinically determine if the pericardial effusion was a postoperative complication. Other: please document: Principal Diagnosis: "that condition established after study, to be chiefly responsible for occasioning the admission of the patient to the hospital for care." Co-Existing Principal Diagnosis: "when two or more diagnoses equally meet the criteria for principal diagnosis as determined by the circumstances of admission, diagnostic work up, and/or therapy provided, and the Alphabetic Index, Tabular List, or another coding guideline does not provide sequencing direction, any one of the diagnoses may be sequenced first." "When the physician has documented what appears to be a current diagnosis in the body of the record, but has not included the diagnosis in the final diagnostic statement, the physician should be asked whether the diagnosis should be added." (Source Coding [facility] 2 QTR90. p3-4) RIKI
== END 2022-03-20 14:29 | disposition home or self-care (01) | DRG 314 ==
LOC: ED 03:14 → 2S 12:02 → SUATTDRO 12:02 → 2S 14:35

== ENCOUNTER 2022-05-02 14:26 | Observation (INO) ==
--- NOTE | 2022-05-02 16:29 | Electrocardiogram Report ---
Test Reason : Blood Pressure : / mmHG Vent. Rate : 067 BPM Atrial Rate : 067 BPM P-R Int : 178 ms QRS Dur : 090 ms QT Int : 368 ms P-R-T Axes : 051 223 016 degrees QTc Int : 388 ms Normal sinus rhythm with sinus arrhythmia Possible Left atrial enlargement Right superior axis deviation Anterior infarct , age undetermined Abnormal ECG When compared with ECG of 13-APR-2022 03:12, No significant change Confirmed by Amilcar Taveras ([id number]) on 05/02/2022 4:29:17 PM Referred By: Confirmed By:Amilcar Taveras
[2022-05-02 16:35] LABS: Partial Thromboplastin Ratio 0.9; Partial Thromboplastin Time 25.4 Seconds (21.0-31.0); Prothrombin Time 10.4 Seconds (9.0-12.0)
[2022-05-02 16:46] LABS: Albumin Globulin Ratio 1.2 (0.9-2); Albumin Level 4.7 gm/dl (3.4-5.0); BUN Creatinine Ratio 19.7 (10-20); Bilirubin,Total 0.4 mg/dl (0.2-1.0); Calcium 10.4 mg/dl (8.5-10.1); Est GFR (African American) 33.3 ml/min; Est GFR (Non-African American) 28.7 ml/min; Globulin 3.9 gm/dl (2.5-4.0); Magnesium 2.1 mg/dl (1.7-2.4); Potassium 4.2 mmol/L (3.5-5.1); Total Protein 8.6 gm/dl (6.0-8.3)
[2022-05-02] MEDS ORDERED: SODIUM CHLORIDE 0.9% 1000ML 1,000 ML IV ONE (17:18)
--- NOTE | 2022-05-02 17:22 | Emergency Department Note ---
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 When he started left arm and she had some in the left leg. Left leg has resolved. She notes she felt like she had some weakness in the left arm but that has resolved as well. This started around 2 PM. Denies any headache or change in vision. No chest pain or shortness of breath. No belly pain nausea vomiting or diarrhea. No dysuria urgency or frequency. She also has some bilateral tingling on her lower jaw. ROS: See above HPI for pertinent positives & negatives. A total of 10 systems reviewed and were otherwise negative. PAST MEDICAL HISTORY:See Below PAST SURGICAL HISTORY:See Below FAMILY HISTORY:See Below SOCIAL HISTORY:See Below HOME MEDICATIONS:See Below ALLERGIES:See Below VITALS:See Below PHYSICAL EXAMINATION: GENERAL: Sitting up in bed, alert, well appearing, well nourished, no distress, non-toxic EYE EXAM: normal conjunctiva. PERRL and EOM's intact. OROPHARYNX: no exudate, no erythema, lips, buccal mucosa, and tongue normal and mucous membranes are moist NECK: supple, no nuchal rigidity, no adenopathy, non-tender LUNGS: Clear to auscultation. Normal chest wall mechanics HEART: no murmurs, S1 normal and S2 normal ABDOMEN: abdomen soft, non-tender, normo-active bowel sounds, no masses, no rebound or guarding. UPPER EXTREMITIES: upper extremities are grossly normal. LOWER EXTREMITIES: No pitting edema. NEURO EXAM: Normal sensorium, cranial nerves II-XII intact, normal speech, no weakness of arms, no weakness of legs. No drift. Finger to nose intact. Gross sensation intact. MEDICAL DECISION MAKING: Patient is a 51-year-old female who presents the ER for the above-stated complaint. IV was established blood was obtained. Labs show no significant leukocytosis or anemia. BMP with a creatinine of 1.9 up from baseline of 1. LFTs bilirubin was unremarkable. Troponin was tactical at 16. COVID was negative. CT angios of the head and neck showed old infarct which was new from previous CTs. She is a high risk as she also has a history of dissection. She was discussed with the hospitalist for further evaluation. Triage Nursing notes reviewed. Limited review of prior medical records performed Vital Signs: reviewed and remarkable for no significant abnormalities Differential diagnosis: Differential Diagnosis includes but is not limited to ischemic Stroke, hemorrhagic stroke, bells palsy, mass, neoplasm, migraine headache, seizure, subarachnoid hemorrhage, TIA, and transient global amnesia. ER treatment provided: See below Diagnostics interpreted by me: ECG: Sinus rhythm rate of 67 Right axis deviation No PVCs QTC 388 Cardiac Monitoring: An order was placed for continuous cardiac monitoring. The monitor shows a rate of 80 with sinus rhythm. Laboratory studies: As stated above and show below. Imaging studies: CT angios of the head and neck as described above discussed with the hospitalist for further evaluation Consultation(s): Discussed with hospitalist for further evaluation Procedures: none Critical Care: None Past Med/Surg History Medical History (Updated 05/02/22 @ 22:34 by Sean Paz DO) CKD (chronic kidney disease), stage III Dissecting aneurysm of thoracic aorta, [place] type A 01/2022 admitted to [facility] for 13 days after rupture Diverticular disease Dyslipidemia History of COVID-19 12/2021 no symptoms- no hospitalizations Hypertension Hypokalemia Hypothyroidism Hypothyroidism Kidney stones hx Morbid obesity with BMI of 40.0-44.9, adult ANNABELLE (obstructive sleep apnea) has not been using device Pleural effusion left- 03/2022 admitted @ [facility] Surgical History History of section History of colonoscopy History of dilatation and curettage History of hysterectomy History of oral surgery gum removal History of wisdom tooth extraction Status post thoracic aortic aneurysm repair follows w/ dr damon will see 04/03/22 done @ [facility] Family History Other Family history not known due to adoption Social History Smoking Status: Never smoker Tobacco Type: Cigarettes Second Hand Exposure: No; Hx Alcohol Use: No Hx Substance Use: No Preferred Language: Burmese Communication Ability: Effective Mass Spectroscopist Required: No Beliefs That Will Affect Care: None marital status: Current Living Situation: Spouse Current Living Situation Comment: Lives with and daughter 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 Feels Safe at Home: Yes Safety Concerns: Feels Safe At This Time Assistive Devices: None Allergies Allergies Allergy/AdvReac Type Severity Reaction Status Date / Time No Known Allergies Allergy Unknown Verified 05/02/22 19:20 Home Meds Home Medications Medication Instructions Recorded Confirmed levothyroxine 125 mcg tablet 125 mcg PO QAM 11/10/18 05/02/22 levothyroxine 150 mcg tablet 150 mcg PO QAM 11/10/18 05/02/22 lisinopril 10 mg tablet 10 mg PO QAM 11/10/18 05/02/22 albuterol sulfate 90 mcg/actuation 2 puff inhalation Q4 PRN Wheezing 03/07/22 05/02/22 aerosol inhaler aspirin 81 mg tablet,delayed 81 mg PO QAM 03/07/22 05/02/22 release calcium carbonate 500 mg calcium 500 mg PO Q OTHER DAY 03/07/22 05/02/22 (1,250 mg) chewable tablet (Calcium 500) fluticasone propionate 50 2 spray intranasal AMHS PRN 03/07/22 05/02/22 mcg/actuation nasal Allergy Symptoms spray,suspension metoprolol tartrate 25 mg tablet 25 mg PO HS 03/07/22 05/02/22 potassium chloride 10 mEq 20 meq PO QA 03/07/22 05/02/22 tablet,extended release(part/cryst) torsemide 20 mg tablet 20 mg PO QA 03/07/22 05/02/22 atorvastatin 20 mg tablet 20 mg PO DAILY 05/02/22 05/02/22 metoprolol tartrate 25 mg tablet 50 mg PO DAILY 05/02/22 05/02/22 spironolactone 25 mg tablet 25 mg PO DAILY 05/02/22 05/02/22 Previous Rx's Medication Instructions Recorded colchicine 0.6 mg tablet (Colcrys) 0.6 mg PO BID #60 tabs 03/10/22 pantoprazole 40 mg tablet,delayed 40 mg PO BID #60 tabs 03/10/22 release prednisone 5 mg tablet 5 mg PO UD #66 tabs 03/20/22 Results & Data (ED) Vital Signs Vital Signs - 24 hr 05/02/22 14:38 05/02/22 17:15 05/02/22 17:46 Temperature 36.2 C L Temperature Source Temporal Artery Scan Pulse Rate 76 Pulse Rate [Apical] 76 Pulse Rate from SpO2 Sensor Pulse Rhythm [Apical] Regular Pulse Strength [Apical] Normal Respiratory Rate 18 16 Respiratory Effort / Characteristics Non-Labored Respiratory Depth Normal Normal Respiratory Pattern Regular Blood Pressure 119/83 Blood Pressure [Left Arm] 130/76 Blood Pressure Mean 95 Blood Pressure Mean [Left Arm] 94 Blood Pressure Position Sitting Pulse Oximetry 96 95 Oxygen Delivery Method Room Air Room Air Room Air Sepsis Recent Fever Within 48 Hours No Sepsis New/Unexplained Change in Mental Status No Sepsis Action Taken by Nursing No Action Required 05/02/22 17:41 05/02/22 17:42 05/02/22 17:42 Temperature Temperature Source Pulse Rate 58 L 62 Pulse Rate [Apical] Pulse Rate from SpO2 Sensor 63 Pulse Rhythm [Apical] Pulse Strength [Apical] Respiratory Rate 13 19 Respiratory Effort / Characteristics Respiratory Depth Respiratory Pattern Blood Pressure 130/76 Blood Pressure [Left Arm] Blood Pressure Mean 94 Blood Pressure Mean [Left Arm] Blood Pressure Position Pulse Oximetry 100 Oxygen Delivery Method Sepsis Recent Fever Within 48 Hours Sepsis New/Unexplained Change in Mental Status Sepsis Action Taken by Nursing 05/02/22 17:50 05/02/22 18:00 05/02/22 18:00 Temperature Temperature Source Pulse Rate 72 55 L Pulse Rate [Apical] Pulse Rate from SpO2 Sensor 73 57 L Pulse Rhythm [Apical] Pulse Strength [Apical] Respiratory Rate 21 16 Respiratory Effort / Characteristics Respiratory Depth Respiratory Pattern Blood Pressure 131/71 Blood Pressure [Left Arm] Blood Pressure Mean 91 Blood Pressure Mean [Left Arm] Blood Pressure Position Pulse Oximetry 95 94 Oxygen Delivery Method Sepsis Recent Fever Within 48 Hours Sepsis New/Unexplained Change in Mental Status Sepsis Action Taken by Nursing 05/02/22 18:10 05/02/22 18:20 05/02/22 18:30 Temperature Temperature Source Pulse Rate 69 66 Pulse Rate [Apical] Pulse Rate from SpO2 Sensor 69 65 Pulse Rhythm [Apical] Pulse Strength [Apical] Respiratory Rate 13 13 Respiratory Effort / Characteristics Respiratory Depth Respiratory Pattern Blood Pressure 125/68 Blood Pressure [Left Arm] Blood Pressure Mean 87 Blood Pressure Mean [Left Arm] Blood Pressure Position Pulse Oximetry 96 92 Oxygen Delivery Method Sepsis Recent Fever Within 48 Hours Sepsis New/Unexplained Change in Mental Status Sepsis Action Taken by Nursing 05/02/22 18:30 Temperature Temperature Source Pulse Rate 69 Pulse Rate [Apical] Pulse Rate from SpO2 Sensor Pulse Rhythm [Apical] Pulse Strength [Apical] Respiratory Rate 18 Respiratory Effort / Characteristics Respiratory Depth Respiratory Pattern Blood Pressure Blood Pressure [Left Arm] Blood Pressure Mean Blood Pressure Mean [Left Arm] Blood Pressure Position Pulse Oximetry Oxygen Delivery Method Sepsis Recent Fever Within 48 Hours Sepsis New/Unexplained Change in Mental Status Sepsis Action Taken by Nursing Laboratory Data Result diagrams: 05/02/22 16:05 05/02/22 16:05 Lab Results 05/02/22 05/02/22 05/02/22 Range/Units 16:05 16:05 16:05 WBC 8.38 (4.8-10.8) K/ul RBC 4.98 (3.93-5.22) M/uL Hgb 14.6 (12.0-16.0) g/dl Hct 44.9 (34.1-44.9) % MCV 90.2 (80.0-100.0) fL MCH 29.3 (25.0-34.0) pg MCHC 32.5 (32.0-36.0) g/dL RDW Std Deviation 48.1 H (36.4-46.3) fL RDW Coeff of Jacinto 14.6 H (11.5-14.5) % Plt Count 206 (130-400) K/uL MPV 11.8 (9.4-12.3) fL PT 10.4 (9.0-12.0) Seconds INR 1.0 (0.9-1.1) APTT 25.4 (21.0-31.0) Seconds PTT Ratio 0.9 Sodium 137 (136-145) mmol/L Potassium 4.2 (3.5-5.1) mmol/L Chloride 99 (98-107) mmol/L Carbon Dioxide 31 (21-32) mmol/L Anion Gap 7 (3-11) BUN 39 H (6-23) mg/dl Creatinine 1.98 H (0.6-1.2) mg/dl Est Cr Clr Drug Dosing 43.0 ml/min Est GFR ( Amer) 33.3 ml/min Est GFR (Non-Af Amer) 28.7 ml/min BUN/Creatinine Ratio 19.7 (10-20) Glucose 86 (70-99(Fasting)) mg/dl Calcium 10.4 H (8.5-10.1) mg/dl Magnesium 2.1 (1.7-2.4) mg/dl Total Bilirubin 0.4 (0.2-1.0) mg/dl AST 31 (13-39) U/L ALT 19 (7-52) U/L Alkaline Phosphatase 85 (34-104) U/L Troponin I High Sens (0-14) pg/ml Total Protein 8.6 H (6.0-8.3) gm/dl Albumin 4.7 (3.4-5.0) gm/dl Globulin 3.9 (2.5-4.0) gm/dl Albumin/Globulin Ratio 1.2 (0.9-2) SARS-CoV-2, RNA, NAAT (NEGATIVE) 05/02/22 05/02/22 Range/Units 16:05 17:57 WBC (4.8-10.8) K/ul RBC (3.93-5.22) M/uL Hgb (12.0-16.0) g/dl Hct (34.1-44.9) % MCV (80.0-100.0) fL MCH (25.0-34.0) pg MCHC (32.0-36.0) g/dL RDW Std Deviation (36.4-46.3) fL RDW Coeff of Jacinto (11.5-14.5) % Plt Count (130-400) K/uL MPV (9.4-12.3) fL PT (9.0-12.0) Seconds INR (0.9-1.1) APTT (21.0-31.0) Seconds PTT Ratio Sodium (136-145) mmol/L Potassium (3.5-5.1) mmol/L Chloride (98-107) mmol/L Carbon Dioxide (21-32) mmol/L Anion Gap (3-11) BUN (6-23) mg/dl Creatinine (0.6-1.2) mg/dl Est Cr Clr Drug Dosing ml/min Est GFR ( Amer) ml/min Est GFR (Non-Af Amer) ml/min BUN/Creatinine Ratio (10-20) Glucose (70-99(Fasting)) mg/dl Calcium (8.5-10.1) mg/dl Magnesium (1.7-2.4) mg/dl Total Bilirubin (0.2-1.0) mg/dl AST (13-39) U/L ALT (7-52) U/L Alkaline Phosphatase (34-104) U/L Troponin I High Sens 16.3 H (0-14) pg/ml Total Protein (6.0-8.3) gm/dl Albumin (3.4-5.0) gm/dl Globulin (2.5-4.0) gm/dl Albumin/Globulin Ratio (0.9-2) SARS-CoV-2, RNA, NAAT NEGATIVE (NEGATIVE) Administered Medications Discontinued Medications Aspirin (Aspirin 81 Mg Chew) 324 mg PO NOW STA Stop: 05/02/22 19:41 Last Admin: 05/02/22 19:45 Dose: 324 mg Documented By: TRUNG Sodium Chloride (Nss 1000ml) 1,000 mls @ 999 mls/hr IV .Q1H1M ONE Stop: 05/02/22 18:18 Last Admin: 05/02/22 17:53 Dose: 999 mls/hr Documented By: Imaging Data Radiologist's Impression: Chest X-Ray 05/02/22 17:19 XR chest 1V portable CLINICAL HISTORY: ? cva TECHNIQUE: Single frontal radiograph of the chest was obtained. Comparison: None available at the time of this dictation. FINDINGS: Median sternotomy wires are unchanged. Cardiomegaly is noted. Lungs are underinflated but clear. No evidence of pleural effusion or pneumothorax. IMPRESSION: No acute chest disease. Cardiomegaly is noted. ACT 112: Negative or not required by law. Electronically signed by: Hayden Parekh M.D. 05/02/2022 6:[address] 05/02/22 17:[address] DOSE: 638.56 mGycm HISTORY: Stroke symptoms. Altered mental status. TECHNIQUE: Multiaxial CT images of the head were performed without the use of intravenous contrast. Automated exposure control was utilized for this study. A dose lowering technique was utilized adhering to the principles of ALARA. Comparison: Head CT 01/07/2022. Findings: Mild motion artifact. The paranasal sinuses and mastoid air cells are clear. The calvarium and skull base are intact. The ventricles and sulci are within normal limits. Small linear focus of encephalomalacia within the left high convexity consistent with an old infarct. This is new from the prior study. There is no mass, hematoma, midline shift, or acute infarct. Impression: 1. Mild motion artifact. No definite acute intracranial abnormality. 2. There is a small linear focus of encephalomalacia within the left high convexity. This is new from the prior study but is consistent with an old infarct. ACT 112: Negative or not required by law. Electronically signed by: Garland Martinez M.D. 05/02/2022 5:46 PM Discharge Plan Visit Data Chief Complaint: Neuro Symptoms/Deficit Stated Complaint: TINGLING IN L ARM AND LIPS ED Provider: Sean Paz Discharge Problem: Brain TIA, KHUSHBOO (acute kidney injury), Weakness Patient Disposition: Admitted As Inpatient Discharge Instructions Interventions: ED Discharge Assessment Last Done: 05/02/22 20:58
[2022-05-02 17:25] LABS: Hematocrit (blood only) 44.9 % (34.1-44.9); Hemoglobin 14.6 g/dl (12.0-16.0); Mean Corpuscular Hemoglobin 29.3 pg (25.0-34.0); Mean Corpuscular Hgb Conc 32.5 g/dL (32.0-36.0); Mean Corpuscular Volume 90.2 fL (80.0-100.0); Mean Platelet Volume 11.8 fL (9.4-12.3); Platelet Count 206 K/uL (130-400); RDW Coefficient of Variation 14.6 % (11.5-14.5); RDW Standard Deviation 48.1 fL (36.4-46.3); Red Blood Count 4.98 M/uL (3.93-5.22); White Blood Count 8.38 K/ul (4.8-10.8)
--- NOTE | 2022-05-02 17:47 | CT Scan Report ---
HEAD CT NONCONTRAST CT DOSE: 638.56 mGycm HISTORY: Stroke symptoms. Altered mental status. TECHNIQUE: Multiaxial CT images of the head were performed without the use of intravenous contrast. A utomated exposure control was utilized for this study. A dose lowering technique was utilized adheri ng to the principles of ALARA. Comparison: Head CT 01/07/2022. Findings: Mild motion artifact. The paranasal sinuses and mastoid air cells are clear. The calvarium and skull base are intact. The ventricles and sulci are within normal limits. Small linear focus of e ncephalomalacia within the left high convexity consistent with an old infarct. This is new from the p rior study. There is no mass, hematoma, midline shift, or acute infarct. Impression: 1. Mild motion artifact. No definite acute intracranial abnormality. 2. There is a small linear focus of encephalomalacia within the left high convexity. This is new from the prior study but is consistent with an old infarct. ACT 112: Negative or not required by law. Electronically signed by: Garland Martinez M.D. 05/02/2022 5:46 PM
--- NOTE | 2022-05-02 18:33 | History & Physical Report ---
Date of Service May 02, 2022 Assessment & Plan (1) Stroke-like symptoms: Plan: Patient is 51 y/o F with PMH aortic dissection [place] type A s/p AAA repair in [place] on 01/07/22 and recent admission to [facility] for pleural and pericardial effusions, HTN, dyslipidemia, CKD III, hypothyroidism, ANNABELLE, obesity presented to ER with c/o left arm and leg paresthesias, lip and chin paresthesias today started around 14:00. Since being in ER no further LLE or face paresthesias and decreased LUE paresthesias reported. In ER vitals stable CT Head: No definite acute intracranial abnormality. There is a small linear focus of encephalomalacia within the left high convexity. This is new from the prior study but is consistent with an old infarct Tele to monitor for arrhythmias Troponin: 16, chronic elevated troponin without acute changes on EKG Lipids and A1c in am MRI brain U/S carotids If MRI positive for stroke will order echo. Recent echo 04/13/22: small loculated anterior pericardial effusion that has decreased in size from 03/18/22, EF: 60- 65%, grade II diastolic dysfunction, no significant valvular pathology aspiration precautions PT/OT consult Continue statin and aspirin Neurology consult (2) KHUSHBOO (acute kidney injury): (3) CKD (chronic kidney disease), stage III: Plan: Cr: 1.9. Was 1.9 04/13/22 and previous baseline of 1-1.4 In ER given 1L NSS Monitor renal functions, avoid nephrotoxic agents when possible (4) Elevated troponin: Plan: Troponin: 16, chronic elevated troponin without acute changes on EKG No CP or SOB reported (5) Status post thoracic aortic aneurysm repair: Plan: Post op complication of pleural effusion and pericardial effusion History aortic dissection [place] type A s/p AAA repair in [place] on 01/07/22 and subsequent pericardial and pleural effusions Continue home torsemide, colchicine, prednisone (6) Hypertension: Plan: Stable Continue lisinopril, metoprolol tartrate, spironolactone, torsemide (7) Dyslipidemia: Plan: Continue atorvastatin (8) ANNABELLE (obstructive sleep apnea): Plan: CPAP HS (9) Hypothyroidism: Plan: Continue levothyroxine DVT Prophylaxis SCDs Full Code as per discussion with pt Follows with Dr Jovel for routine care Pt was seen and care coordinated with Dr Belgica. See addendum History of Present Illness Chief Complaint: left arm paresthesias Primary Care Provider: Bronson Jovel MD Patient is 51 y/o F with PMH aortic dissection [place] type A s/p AAA repair in [place] on 01/07/22 and recent admission to [facility] for pleural and pericardial effusions, HTN, dyslipidemia, CKD III, hypothyroidism, ANNABELLE, obesity presented to ER with c/o left arm and leg paresthesias. Patient reports around 2pm today was sitting at her desk when had onset of warmth to left foot followed by left lower leg paresthesias. Then developed left arm paresthesias and she thought her left arm was weaker than usual. Also had paresthesias to bottom lip and chin. Since being in ER reports no further lip, chin or left leg paresthesias and feels paresthesias to left arm have decreased. She denies any further weakness. Denies BERGER, vision changes, speech changes, fever/chills, diaphoresis, N/V/D/C, dizziness, syncope, vision changes, neck pain, CP, SOB, orthopnea, palpitations, cough, sore throat, choking, otalgia, rhinorrhea, abdominal pain, extremity edema, rashes, urinary symptoms. Allergies Allergy/AdvReac Type Severity Reaction Status Date / Time No Known Allergies Allergy Unknown Verified 05/02/22 19:20 Home Medications Medication Instructions Recorded Confirmed Type levothyroxine 125 mcg tablet 125 mcg PO QAM 11/10/18 05/02/22 History levothyroxine 150 mcg tablet 150 mcg PO QAM 11/10/18 05/02/22 History lisinopril 10 mg tablet 10 mg PO QAM 11/10/18 05/02/22 History albuterol sulfate 90 mcg/actuation 2 puff inhalation Q4 PRN Wheezing 03/07/22 05/02/22 History aerosol inhaler aspirin 81 mg tablet,delayed 81 mg PO QAM 03/07/22 05/02/22 History release calcium carbonate 500 mg calcium 500 mg PO Q OTHER DAY 03/07/22 05/02/22 History (1,250 mg) chewable tablet (Calcium 500) fluticasone propionate 50 2 spray intranasal AMHS PRN 03/07/22 05/02/22 History mcg/actuation nasal Allergy Symptoms spray,suspension metoprolol tartrate 25 mg tablet 25 mg PO HS 03/07/22 05/02/22 History potassium chloride 10 mEq 20 meq PO QAM 03/07/22 05/02/22 History tablet,extended release(part/cryst) torsemide 20 mg tablet 20 mg PO QAM 03/07/22 05/02/22 History colchicine 0.6 mg tablet (Colcrys) 0.6 mg PO BID #60 tabs 03/10/22 05/02/22 Rx pantoprazole 40 mg tablet,delayed 40 mg PO BID #60 tabs 03/10/22 05/02/22 Rx release prednisone 5 mg tablet 5 mg PO UD #66 tabs 03/20/22 05/02/22 Rx atorvastatin 20 mg tablet 20 mg PO DAILY 05/02/22 05/02/22 History metoprolol tartrate 25 mg tablet 50 mg PO DAILY 05/02/22 05/02/22 History spironolactone 25 mg tablet 25 mg PO DAILY 05/02/22 05/02/22 History Past Med/Surg History Medical History CKD (chronic kidney disease), stage III Dissecting aneurysm of thoracic aorta, [place] type A 01/2022 admitted to [facility] for 13 days after rupture Diverticular disease Dyslipidemia History of COVID-19 12/2021 no symptoms- no hospitalizations Hypertension Hypokalemia Hypothyroidism Hypothyroidism Kidney stones hx Morbid obesity with BMI of 40.0-44.9, adult ANNABELLE (obstructive sleep apnea) has not been using device Pleural effusion left- 03/2022 admitted @ [facility] Surgical History History of section History of colonoscopy History of dilatation and curettage History of hysterectomy History of oral surgery gum removal History of wisdom tooth extraction Status post thoracic aortic aneurysm repair follows w/ dr damon will see 04/03/22 done @ [facility] Family History Other Family history not known due to adoption Social History Smoking Status: Never smoker Tobacco Type: Cigarettes Second Hand Exposure: No; Hx Alcohol Use: No Hx Substance Use: No Preferred Language: Malian Communication Ability: Effective Camp Advisor Required: No Beliefs That Will Affect Care: None marital status: Current Living Situation: Spouse Current Living Situation Comment: Lives with and daughter 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 [employer] Feels Safe at Home: Yes Safety Concerns: Feels Safe At This Time Assistive Devices: None Review of Systems Review of Systems: All systems reviewed & are unremarkable except as noted in HPI & below Physical Exam Physical Exam: General: no distress, obese Head: normocephalic, atraumatic Eyes: PERRL, EOM's intact, conjunctiva non-injected, anicteric ENT: normal inspection external ears, nose, mucous membranes moist Neck: supple, trachea midline Lungs: clear, no respiratory distress, no wheezing/rhonchi/rales CV: RRR, no murmur, trace pretibial edema Abd: normal BS, soft, non-tender Ext: no cyanosis, no calf tenderness Neuro: A&O x 3, normal affect, No nystagmus, facial sensation is intact and symmetric, face is strong and symmetric, hearing grossly intact, Soft palate elevates symmetrically, no dysarthria, Shoulder shrug intact, Tongue is midline, normal movement, no fasciculations. Muscle tone normal. Strength 5/5 throughout Skin: warm, dry Results & Data Results & Data ([facility]) Vital Signs (Past 12 Hours) Vital Signs Temp Pulse Pulse Resp BP BP Pulse Ox 05/02/22 17:46 76 16 130/76 95 05/02/22 17:15 05/02/22 14:38 36.2 C L 76 18 119/83 96 O2 Del Method 05/02/22 17:46 Room Air 05/02/22 17:15 Room Air 05/02/22 14:38 Room Air Laboratory Results Short CBC 05/02/22 Range/Units 16:05 WBC 8.38 (4.8-10.8) K/ul Hgb 14.6 (12.0-16.0) g/dl Hct 44.9 (34.1-44.9) % Plt Count 206 (130-400) K/uL BMP 05/02/22 16:05 Sodium 137 Potassium 4.2 Chloride 99 Carbon Dioxide 31 BUN 39 H Creatinine 1.98 H Glucose 86 Calcium 10.4 H Liver Function 05/02/22 Range/Units 16:05 Total Bilirubin 0.4 (0.2-1.0) mg/dl AST 31 (13-39) U/L ALT 19 (7-52) U/L Alkaline Phosphatase 85 (34-104) U/L Albumin 4.7 (3.4-5.0) gm/dl Diagnostic Findings Chest X-Ray 05/02/22 17:19 XR chest 1V portable CLINICAL HISTORY: ? cva TECHNIQUE: Single frontal radiograph of the chest was obtained. Comparison: None available at the time of this dictation. FINDINGS: Median sternotomy wires are unchanged. Cardiomegaly is noted. Lungs are underinflated but clear. No evidence of pleural effusion or pneumothorax. IMPRESSION: No acute chest disease. Cardiomegaly is noted. ACT 112: Negative or not required by law. Electronically signed by: Hayden Parekh M.D. 05/02/2022 6:[address] 05/02/22 17:[address] DOSE: 638.56 mGycm HISTORY: Stroke symptoms. Altered mental status. TECHNIQUE: Multiaxial CT images of the head were performed without the use of intravenous contrast. Automated exposure control was utilized for this study. A dose lowering technique was utilized adhering to the principles of ALARA. Comparison: Head CT 01/07/2022. Findings: Mild motion artifact. The paranasal sinuses and mastoid air cells are clear. The calvarium and skull base are intact. The ventricles and sulci are wi thin normal limits. Small linear focus of encephalomalacia within the left high convexity consistent with an old infarct. This is new from the prior study. There is no mass, hematoma, midline shift, or acute infarct. Impression: 1. Mild motion artifact. No definite acute intracranial abnormality. 2. There is a small linear focus of encephalomalacia within the left high convexity. This is new from the prior study but is consistent with an old infarct. ACT 112: Negative or not required by law. Electronically signed by: Garland Martinez M.D. 05/02/2022 5:46 PM ECG Rhythm: sinus with SA Findings: + Q waves (Anterior) Comparison ECG Date: from (04/13/22. no significant change) Code Status & VTE Plan VTE Prophylaxis Plan VTE Prophylaxis will be ordered: Yes Supervising Physician Co-Signing Physician Notes Pt was seen and examined. Agreed with Nely BERG exam, assessment and plan. 51 y/o F with PMH aortic dissection [place] type A s/p AAA repair in [place] on 01/07/22 and recent admission to [facility] for pleural and pericardial effusions, HTN, dyslipidemia, CKD III, hypothyroidism, ANNABELLE, obesity presented to ER with c/o le ft arm and leg paresthesias. Pt said few hours ago while sitting she developed left foot followed by left lower leg paresthesias; then left arm paresthesias associated with left arm weakness. Pt said that her symptoms mostly resolved since being in the ER. Her stoke like symptoms possible related to TIA, but need to r/o acute CVA. CT head showed no definite acute intracranial abnormality. There is a small linear focus of encephalomalacia within the left high convexity. Will get an MRI brain, carotid u/s and echo. Will consult Neuro. PT/OT eval. Received aspirin 324mg in the ER. Will Continue aspirin 81 mg and statin. Continue monitor closely. MD Belgica
--- NOTE | 2022-05-02 18:50 | XRay Report ---
XR chest 1V portable CLINICAL HISTORY: ? cva TECHNIQUE: Single frontal radiograph of the chest was obtained. Comparison: None available at the time of this dictation. FINDINGS: Median sternotomy wires are unchanged. Cardiomegaly is noted. Lungs are underinflated but clear. No e vidence of pleural effusion or pneumothorax. IMPRESSION: No acute chest disease. Cardiomegaly is noted. ACT 112: Negative or not required by law. Electronically signed by: Hayden Parekh M.D. 05/02/2022 6:49 PM
[2022-05-02] MEDS ORDERED: ASPIRIN 81 MG CHEW PO STA (19:40)
[2022-05-02] MEDS ORDERED: ONDANSETRON INJ 2 MG/ML 2 ML VIAL IV PRN (21:29)
[2022-05-02] MEDS ORDERED: POLYETHYLENE (MIRALAX) 17 GM PACK PO PRN (21:29)
[2022-05-02] MEDS ORDERED: PHARMACIST DISCHARGE MED REC CONSULT PRN (21:29)
[2022-05-02] MEDS ORDERED: ALBUTEROL HFA 8 GM INHALER INH PRN (21:29)
[2022-05-02] MEDS ORDERED: ACETAMINOPHEN 325 MG TAB PO PRN (21:29)
[2022-05-02] MEDS ORDERED: FLUTICASONE PROPIONATE NA SPR 16 GM BTL NAE PRN (21:29)
[2022-05-02] MEDS: COLCHICINE 0.6 MG TAB PO SCH (23:09)
[2022-05-02] MEDS: PANTOprazole 40 MG TAB PO SCH (23:09)
[2022-05-02] MEDS: METOPROLOL TARTRATE 25 MG TAB PO SCH (23:10)
--- NOTE | 2022-05-03 07:20 | Ultrasound Report ---
BILATERAL CAROTID DOPPLER STUDY HISTORY: Left facial paresthesias. stroke like symptoms COMPARISON: None. TECHNIQUE: Real-time, grayscale, and color Doppler sonography of the carotid arteries was performed. Imaging reviewed in the transverse and longitudinal planes. All measurements were calculated based on NASCET criteria. FINDINGS: Antegrade flow is seen in the bilateral vertebral arteries. Minimal calcified plaque within the left carotid bulb. The peak systolic velocity within the right ICA is 68 cm/s. The right systolic ratio is 1.2. The peak systolic velocity within the left ICA is 104 cm/s. The left systolic ratio is 1.5. IMPRESSION: No hemodynamically significant stenosis seen within the carotid arteries. ACT 112: Negative or not required by law. Electronically signed by: Garland Martinez M.D. 05/03/2022 7:19 AM
--- NOTE | 2022-05-03 08:04 | Electrocardiogram Report ---
Test Reason : Blood Pressure : / mmHG Vent. Rate : 072 BPM Atrial Rate : 072 BPM P-R Int : 182 ms QRS Dur : 090 ms QT Int : 394 ms P-R-T Axes : 044 165 001 degrees QTc Int : 431 ms Normal sinus rhythm Left atrial enlargement Right axis deviation Poor R wave progression, consider anterior LA vs. lead placement vs. LVH Abnormal ECG When compared with ECG of 02-MAY-2022 15:07, No significant change was found Confirmed by Bronson Angulo ([id number]) on 05/03/2022 8:04:17 AM Referred By: REFERRED SELF Confirmed By:Bronson Angulo
[2022-05-03] MEDS ORDERED: LABETALOL HCL IV 5 MG/ML 20ML IV PRN (08:34)
[2022-05-03] MEDS ORDERED: SPIRONOLACTONE 25 MG TAB PO SCH (09:00)
[2022-05-03] MEDS ORDERED: lisinopril 10 MG TAB PO SCH (09:00)
[2022-05-03] MEDS ORDERED: POTASSIUM CHLORIDE CRTAB 20 MEQ TABCR PO SCH (09:00)
[2022-05-03] MEDS ORDERED: TORSEMIDE 20 MG TAB PO SCH (09:00)
[2022-05-03] MEDS: SODIUM CHLORIDE 0.9% 1000ML 1,000 ML IV SCH (09:01)
[2022-05-03] MEDS: predniSONE 2.5 MG TAB PO SCH (09:02)
[2022-05-03] MEDS: ASPIRIN 81 MG ECTAB PO SCH (09:02)
[2022-05-03] MEDS: LEVOTHYROXINE SODIUM 125 MCG TABLET PO SCH (09:02)
[2022-05-03] MEDS: LEVOTHYROXINE SODIUM 150 MCG TABLET PO SCH (09:02)
[2022-05-03] MEDS: METOPROLOL TARTRATE 50 MG TAB PO SCH (09:03)
[2022-05-03] MEDS: ATORVASTATIN 20 MG TAB PO SCH (09:03)
[2022-05-03] MEDS: COLCHICINE 0.6 MG TAB PO SCH ×2 (09:03→20:33)
[2022-05-03] MEDS: PANTOprazole 40 MG TAB PO SCH ×2 (09:04→20:33)
[2022-05-03 09:09] LABS: Hematocrit (blood only) 40.5 % (34.1-44.9); Hemoglobin 13.1 g/dl (12.0-16.0); Mean Corpuscular Hgb Conc 32.3 g/dL (32.0-36.0); Mean Corpuscular Volume 89.6 fL (80.0-100.0); Mean Platelet Volume 10.5 fL (9.4-12.3); Platelet Count 234 K/uL (130-400); RDW Coefficient of Variation 14.7 % (11.5-14.5); RDW Standard Deviation 48.5 fL (36.4-46.3); Red Blood Count 4.52 M/uL (3.93-5.22); White Blood Count 7.47 K/ul (4.8-10.8)
[2022-05-03 09:30] LABS: BUN Creatinine Ratio 22.5 (10-20); Calcium 9.8 mg/dl (8.5-10.1); Chol HDL Ratio 4.1 (0-5); Creatinine Clr Calc Pharmacy 47.8 ml/min; Est GFR (African American) 37.9 ml/min; Est GFR (Non-African American) 32.7 ml/min; Potassium 4.4 mmol/L (3.5-5.1)
--- NOTE | 2022-05-03 10:45 | Magnetic Resonance Report ---
MRI OF THE BRAIN WITHOUT CONTRAST CLINICAL HISTORY: stroke like symptoms COMPARISON STUDY: Head CT May 02, [address] January 07, 2022. TECHNIQUE: Utilizing a 1.5 Debi magnet and dedicated coil, multiplanar, multiecho imaging of the bra in was performed without IV contrast. FINDINGS: There are no foci of restricted diffusion to suggest acute infarct. No acute intracranial h emorrhage, midline shift or mass effect is present. Brain volume is normal. Ventricular system is nor mal. Basal cisterns are patent. There are no extra-axial collections. Incidental note is made of ossi fication along the anterior falx. A small focus of encephalomalacia within the left parietal lobe inf arct is noted. This is new since head CT of January 07, 2022 but is not acute. There is associated lamina r necrosis. Minimal white matter T2 hyperintense foci suggest mild small vessel disease. No intracran ial masses are identified on this unenhanced exam. Small amount of fluid within the right mastoid air cells is present. Calvarial signal is unremarkable. Orbits are unremarkable on this unenhanced study . IMPRESSION: 1. No acute intracranial findings. 2. Small focus of encephalomalacia within the left parietal lobe which is new since head CT of December. This is suggestive of an old infarct. 3. Small amount of fluid within the right mastoid air cells. ACT 112: Negative or not required by law. Electronically signed by: Wyatt Elliott M.D. 05/03/2022 10:43 AM
--- NOTE | 2022-05-03 10:55 | Neurology Consultation ---
Date of Consultation May 03, 2022 Assessment & Plan (1) Brain TIA: Plan 51-year-old female presenting with a transient episode of left-sided sensory disturbance, arm and leg, both sides of the lower lip/mouth, without associated weakness or other neurologic symptoms, resolving within a few hours and without symptomatic recurrence. Reported symptoms seem most consistent with a TIA localizing to the right cerebral hemisphere, possibly thalamus. Character and duration of symptoms would not be consistent with sensory seizure. Complicated migraine unlikely, especially given lack of associated headache. Patient's imaging does show an area of chronic encephalomalacia within the left high convexity that would be unrelated to her current presentation. This finding is likely consistent with an ischemic stroke that occurred in the context of her aortic dissection that occurred this past December. Her follow-up brain MRI is negative for acute or subacute infarct per my review. See HPI for my description of the MRI. Please follow-up with official radiology report when available. No significant stenotic lesion identified on carotid ultrasound. Would continue with daily low-dose aspirin and atorvastatin as prescribed. Would not add clopidogrel at this time. An EEG is not necessary at this time. Would avoid CT angiography of the head and neck at this time given acute kidney injury in the context of chronic kidney disease and lack of acute findings on MRI. However, if patient were to experience another TIA or strokelike episode it may be necessary to reassess her aortic/thoracic, cervical, and intracranial vasculature with CT angiography given her history of ascending and descending aortic aneurysmal dissection and repair at [facility] this past December. No further immediate recommendations. History of Present Illness Reason for Consultation: stroke like sxs Requesting Physician: Nely Stokes PA-C Attending Physician: Steven Snow MD History of Present Illness The patient is a 51-year-old female with a chief complaint of transient sensory disturbance to the left side of the body. Her symptoms began yesterday afternoon, initially characterized by a hot sensation affecting the left foot, traveling proximally, followed by numbness and tingling of the entire left upper limb with associated paresthesia along the bilateral lower lip. Her symptoms resolved within a few hours. She denies experiencing any associated weakness or clumsiness of the limbs. No headache or associated vision disturbance. No vertigo or dizziness. No change in level of alertness. No abnormal stiffening or shaking of the limbs. This morning, the patient is completely asymptomatic. 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 She was transferred to [facility] [address] for surgical treatment and was discharged on January 19, 2022. She was admitted to [facility] on March 07 through March 10 for further management of left pleural effusion, pericardial effusion. She was admitted again to [facility] from March 18 through March 20 for hypert ensive urgency, pleuropericardial effusion. She did have a CT of the head completed yesterday that revealed a small linear focus of encephalomalacia within the left high convexity, not seen on her previous CT of the head done January 07, 2022. I did independently review these images and was able to appreciate this finding. A follow-up brain MRI has been completed as well, official report not available at this time, I did independently review the images. No restricted diffusion. No pathologic blooming artifact on susceptibility weighted images. I do appreciate an anterior falcine calcification that was also seen on her CT of the head. The area of linear encephalomalacia within the left high convexity as seen on CT of the head, is also observed on coronal FLAIR and axial T2 images. There is some associated bright signal on T1 images potentially consistent with laminar necrosis in this area. There is also some asymmetry with some prominence of the left temporal horn of the lateral ve ntricle noted. This study was performed without gadolinium enhancement. A carotid ultrasound is negative for hemodynamically significant stenosis within the carotid arteries. Antegrade flow seen in both vertebral arteries. Allergies Allergy/AdvReac Type Severity Reaction Status Date / Time No Known Allergies Allergy Unknown Verified 05/02/22 19:20 Home Medications Medication Instructions Recorded Confirmed Type levothyroxine 125 mcg tablet 125 mcg PO QAM 11/10/18 05/02/22 History levothyroxine 150 mcg tablet 150 mcg PO QAM 11/10/18 05/02/22 History lisinopril 10 mg tablet 10 mg PO QAM 11/10/18 05/02/22 History albuterol sulfate 90 mcg/actuation 2 puff inhalation Q4 PRN Wheezing 03/07/22 05/02/22 History aerosol inhaler aspirin 81 mg tablet,delayed 81 mg PO QAM 03/07/22 05/02/22 History release calcium carbonate 500 mg calcium 500 mg PO Q OTHER DAY 03/07/22 05/02/22 History (1,250 mg) chewable tablet (Calcium 500) fluticasone propionate 50 2 spray intranasal AMHS PRN 03/07/22 05/02/22 History mcg/actuation nasal Allergy Symptoms spray,suspension metoprolol tartrate 25 mg tablet 25 mg PO HS 03/07/22 05/02/22 History potassium chloride 10 mEq 20 meq PO QAM 03/07/22 05/02/22 History tablet,extended release(part/cryst) torsemide 20 mg tablet 20 mg PO QAM 03/07/22 05/02/22 History colchicine 0.6 mg tablet (Colcrys) 0.6 mg PO BID #60 tabs 03/10/22 05/02/22 Rx pantoprazole 40 mg tablet,delayed 40 mg PO BID #60 tabs 03/10/22 05/02/22 Rx release prednisone 5 mg tablet 5 mg PO UD #66 tabs 03/20/22 05/02/22 Rx atorvastatin 20 mg tablet 20 mg PO DAILY 05/02/22 05/02/22 History metoprolol tartrate 25 mg tablet 50 mg PO DAILY 05/02/22 05/02/22 History spironolactone 25 mg tablet 25 mg PO DAILY 05/02/22 05/02/22 History Patient History Medical History CKD (chronic kidney disease), stage III Dissecting aneurysm of thoracic aorta, Heber type A 01/2022 admitted to [facility] for 13 days after rupture Diverticular disease Dyslipidemia History of COVID-19 12/2021 no symptoms- no hospitalizations Hypertension Hypokalemia Hypothyroidism Hypothyroidism Kidney stones hx Morbid obesity with BMI of 40.0-44.9, adult ANNABELLE (obstructive sleep apnea) has not been using device Pleural effusion left- 03/2022 admitted @ [facility] Surgical History History of section History of colonoscopy History of dilatation and curettage History of hysterectomy History of oral surgery gum removal History of wisdom tooth extraction Status post thoracic aortic aneurysm repair follows w/ dr damon will see 04/03/22 done @ [facility] Family History Other Family history not known due to adoption Social History Smoking Status: Never smoker Tobacco Type: Cigarettes Second Hand Exposure: No; Hx Alcohol Use: No Hx Substance Use: No Preferred Language: Korean Communication Ability: Effective 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: No Beliefs That Will Affect Care: None marital status: Current Living Situation: Spouse Current Living Situation Comment: Lives with and daughter 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 [employer] Feels Safe at Home: Yes Safety Concerns: Feels Safe At This Time Assistive Devices: None Review of Systems Constitutional: no fever and no chills Eyes: no blind spots and no diplopia Ear, Nose, Mouth, Throat: no hearing loss Respiratory: no cough and no dyspnea Cardiovascular: no chest pain and no palpitations Gastrointestinal: no nausea and no vomiting Genitourinary: no urinary incontinence Musculoskeletal: no back pain and no neck pain Integumentary: no rash and no lesions Neurologic: as per Subjective / HPI Psychiatric: no depression and no anxiety Hematologic / Lymphatic: no easy bleeding and no easy bruising Exam (Neuro) Constitutional: well developed and well nourished; no acute distress Eyes: normal visual fonseca by confrontation, PERRL, normal accommodation and EOM intact bilaterally; no fundoscopic abnormality, no nystagmus and no papilledema Cardiovascular: Vessels: normal carotid upstroke; no carotid bruit Neurologic: Oriented to:: Person, Place and Time Memory: Short Term Intact and Remote Intact Attention: Span Intact and Concentration Intact Language: Naming Objects and Repeating Phrases Speech Fluency: negative Dysarthria Speech Aphasia: negative Aphasia Fund of Knowledge: Current Events, Past History and Vocabulary Cranial Nerves: Normal II (Visual fonseca full to confrontation, visual acuity normal), III, IV, (Pupils equal round reactive to light and accommodation, eye movements normal), V (Facial sensation intact), VII (There is no facial droop or weakness), VIII (Hearing intact), IX, X (Palate elevates to midline), XI (Shoulder shrug intact) and XII (Tongue protrudes to midline) Motor Strength: Normal Lower Extremities and Normal Upper Extremities; negative Pronator Drift Motor Tone: Normal Lower Extremities and Normal Upper Extremities Muscle Bulk/Involuntary Movements: No Involuntary Movements; negative Muscle Atrophy Sensation: Light Touch Intact, Pain/Temperature Intact, Vibration Intact and Proprioception Intact Coordination: Normal; negative Limited Balance, Dysdiadochokinesia, Finger-Nose Abnormal or Heel-Maxwell Abnormal Deep Tendon Reflexes: Rt Triceps: 2+, Lt Triceps: 2+, Rt Biceps: 2+, Lt Biceps: 2+, Rt Brachioradialis: 2+, Lt Brachioradialis: 2+, Rt Patellar: 2+, Lt Patellar: 2+, Rt Ankle: 1+ and Lt Ankle: 1+ Special Tests: negative Babinski Present Gait: Normal Station and Gait Results & Data ([facility]) Vital Signs (Past 12 Hours) Vital Signs Temp Pulse Pulse Resp BP Pulse Ox O2 Del Method 05/03/22 07:33 36.5 C 77 18 101/69 98 Room Air 05/03/22 07:26 73 05/03/22 03:05 36.7 C 71 18 98/67 L 94 Room Air 05/02/22 23:00 36.7 C 89 18 101/69 95 Room Air Laboratory Results WBC 7.47, hemoglobin 13.1, hematocrit 40.5, MCV 89.6, platelet count 234, sodium 140, potassium 4.4, BUN 40, creatinine 1.78, glucose 75, calcium 9.8, magnesium 2.1, AST 31, ALT 19, triglycerides 177, cholesterol 191, LDL 109, VLDL 35, HDL 47, SARS-CoV-[address] of the head, brain MRI, and carotid ultrasound are as described in the history of present illness. Electrocardiogram reveals a normal sinus rhythm, left atrial enlargement, 72 bpm. An echocardiogram completed April 13, 2022 have revealed improvement in the previously identified pericardial effusion, although still present and without hemodynamic compromise, normal left ventricular chamber size, moderate concentric LVH, EF 60 to 65%, no segmental left ventricular wall motion abnormalities, no significant valvular pathology, left atrial size normal, no ASD. Coding Level of Care Code 34519 Initial Inpt Care Lvl 3 Diagnoses Brain TIA G45.9
[2022-05-03 11:14] LABS: Estimated Average Glucose 137 mg/dl; Hemoglobin A1C 6.4 % (4.5-5.6)
--- NOTE | 2022-05-03 15:30 | Hospitalist Progress Note ---
Date of Service May 03, 2022 Assessment & Plan (1) Brain TIA: Plan 51 y/o F with PMH of aortic dissection Heber type A s/p AAA repair in [place] on 01/07/22 and recent admission to [facility] for pleural and pericardial effusions, HTN, dyslipidemia, CKD III, hypothyroidism, ANNABELLE, obesity presented to ER 05/02 with c/o left arm and leg paresthesias, lip and chin paresthesias started around 14:00 on the day of arrival. She is being managed for the following: (1) Stroke-like symptoms: Likely TIA Patient presented with paresthesias [see above] Admitting CT Head: No definite acute intracranial abnormality. There is a small linear focus of encephalomalacia within the left high convexity. This is new from the prior study but is consistent with an old infarct. 05/02 MRI brain: No acute findings. Small focus of encephalomalacia within the left parietal lobe suggestive of an old infarct but is new from January 07, 2022. 05/02 carotid Doppler: No hemodynamically significant stenosis noted. Admitting troponin around 16, flat trended. Admitting EKG without acute changes. Lipids with LDL 109. A1c of 6.4. Neurology evaluated, continue current treatment. If patient were to experience another TIA or strokelike episode, reassess her head and neck vasculature with CT angiography. Neurochecks, telemetry monitoring, PT/OT, likely DC tomorrow. (2) KHUSHBOO (acute kidney injury): (3) CKD (chronic kidney disease), stage III: Outpatient chart review with baseline creatinine around 1.4, admitting creatinine of 1.98 Creatinine slowly trending down, 1.78, gentle IV fluids at 50 mils an hour, patient taking adequate p.o. intake. Nephrotoxic aldactone, lisinopril and torsemide held. BMP in AM. (4) Elevated troponin: Likely chronic, no chest pain or shortness of breath. (5) Status post thoracic aortic aneurysm repair: Post op complication of pleural effusion and pericardial effusion History aortic dissection Bevier type A s/p AAA repair in [place] on 01/07/22 and subsequent pericardial and pleural effusions Continue home meds as able. (6) Hypertension/HLD/ANNABELLE/hypothyroidism: Continue home meds as able DVT prophylaxis: SCDs Full code DVT Prophylaxis SCDs Full Code as per discussion with pt Follows with Dr Jovel for routine care Admission and Anticipated Discharge Date Admission Date: May 02, 2022 Subjective Patient seen and examined at bedside as a follow-up of her strokelike symptoms and KHUSHBOO over CKD. Patient was sitting up in chair, on room air, NAD, denies any new acute events overnight, reports improvement in her tingling sensation of the lips and left extremity paresthesia. Patient denies any headache/dizziness/chest pain/palpitations/shortness of breath/fever/cough/belly pain/acute changes in her bowel or bladder habits. Physical Exam Physical Exam: GENERAL: Alert and oriented x3. NAD, on RA. Class III obese. HEENT: No pallor, no icterus. Pupils equal, round and reactive to light. Oral mucosa moist. NECK: No JVD, no neck masses. HEART: S1 and S2 heard. Regular rate and rhythm. No murmur, no gallop. RESPIRATORY SYSTEM: Normal AP diameter. No accessory muscle use. No wheezing, no crackles. ABDOMEN: Soft, bowel sounds present, nontender, no distention. CENTRAL NERVOUS SYSTEM: No facial droop. Speech is clear. Obeys simple commands. Moves extremities. EXTREMITIES: Trace BLE edema, no erythema seen. Results & Data Results & Data ([facility]) Vital Signs (Past 12 Hours) Vital Signs Temp Pulse Pulse Resp BP Pulse Ox O2 Del Method 05/03/22 11:16 36.4 C L 62 18 101/66 94 Room Air 05/03/22 07:33 36.5 C 77 18 101/69 98 Room Air 05/03/22 07:26 73
[2022-05-03] MEDS: METOPROLOL TARTRATE 25 MG TAB PO SCH (20:33)
[2022-05-04] MEDS: SODIUM CHLORIDE 0.9% 1000ML 1,000 ML IV SCH (04:40)
[2022-05-04 07:04] LABS: BUN Creatinine Ratio 22.8 (10-20); Calcium 9.6 mg/dl (8.5-10.1); Creatinine Clr Calc Pharmacy 57.6 ml/min; Est GFR (Non-African American) 40.5 ml/min
[2022-05-04] MEDS: LEVOTHYROXINE SODIUM 150 MCG TABLET PO SCH (09:22)
[2022-05-04] MEDS: ATORVASTATIN 20 MG TAB PO SCH (09:22)
[2022-05-04] MEDS: COLCHICINE 0.6 MG TAB PO SCH (09:22)
[2022-05-04] MEDS: LEVOTHYROXINE SODIUM 125 MCG TABLET PO SCH (09:22)
[2022-05-04] MEDS: predniSONE 2.5 MG TAB PO SCH (09:22)
[2022-05-04] MEDS: PANTOprazole 40 MG TAB PO SCH (09:23)
[2022-05-04] MEDS: ASPIRIN 81 MG ECTAB PO SCH (09:23)
[2022-05-04] MEDS: METOPROLOL TARTRATE 50 MG TAB PO SCH (09:23)
[2022-05-04] MEDS ORDERED: STROKE PATIENT DISCHARGE STA (13:35)
--- NOTE | 2022-05-04 13:44 | Discharge Summary ---
Discharge Summary Date of Service May 04, 2022 Notes For Next Care Provider Patient's atorvastatin dose needs to be adjusted to high-dose statin. Patient is prediabetic with A1c of 6.4%, patient advised to follow healthy lifestyle/exercise routine/healthy diet. This will need follow-up. Patient will need blood test CBC/CMP/magnesium level in a week time. Patient will need to maintain follow-up with her nephrology and cardiology. Medication Changes From Visit None. Patient would like to discuss with her PCP/cardiology before adjusting her atorvastatin dose which is needed [if tolerated] given she had recent brain infarct. Admission HPI Per Admitting Provider Patient is 51 y/o F with PMH aortic dissection [place] type A s/p AAA repair i [facility] on 01/07/22 and recent admission to [facility] for pleural and pericardial effusions, HTN, dyslipidemia, CKD III, hypothyroidism, ANNABELLE, obesity presented to ER with c/o left arm and leg paresthesias. Patient reports around 2pm today was sitting at her desk when had onset of warmth to left foot followed by left lower leg paresthesias. Then developed left arm paresthesias and she thought her left arm was weaker than usual. Also had paresthesias to bottom lip and chin. Since being in ER reports no further lip, chin or left leg paresthesias and feels paresthesias to left arm have decreased. She denies any further weakness. Denies BERGER, vision changes, speech changes, fever/chills, diaphoresis, N/V/D/C, dizziness, syncope, vision changes, neck pain, CP, SOB, orthopnea, palpitations, cough, sore throat, choking, otalgia, rhinorrhea, abdominal pain, extremity edema, rashes, urinary symptoms. Admission Exam Per Admitting Provider General: no distress, obese Head: normocephalic, atraumatic Eyes: PERRL, EOM's intact, conjunctiva non-injected, anicteric ENT: normal inspection external ears, nose, mucous membranes moist Neck: supple, trachea midline Lungs: clear, no respiratory distress, no wheezing/rhonchi/rales CV: RRR, no murmur, trace pretibial edema Abd: normal BS, soft, non-tender Ext: no cyanosis, no calf tenderness Neuro: A&O x 3, normal affect, No nystagmus, facial sensation is intact and symmetric, face is strong and symmetric, hearing grossly intact, Soft palate elevates symmetrically, no dysarthria, Shoulder shrug intact, Tongue is midline, normal movement, no fasciculations. Muscle tone normal. Strength 5/5 throughout Skin: warm, dry Principal Dx & Hospital Course #1 = Principal Diagnosis (1) Stroke-like symptoms: Patient is 51 y/o F with PMH aortic dissection [place] type A s/p AAA repair in [place] on 01/07/22 and recent admission to [facility] for pleural and pericardial effusions, HTN, dyslipidemia, CKD III, hypothyroidism, ANNABELLE, obesity presented to ER with c/o left arm and leg paresthesias, lip and chin paresthesias today started around 14:00. Since being in ER no further LLE or face paresthesias and decreased LUE paresthesias reported. She was managed for the following: In ER vitals stable CT Head: No definite acute intracranial abnormality. There is a small linear focus of encephalomalacia within the left high convexity. This is new from the prior study but is consistent with an old infarct Tele to monitor for arrhythmias, patient with no rhythm disturbances noted, patient with no new neurological signs or symptoms. Admitting troponin and EKG fairly WNL. Patient needs adjustment in her Lipitor dose, patient more inclined to talk with the PCP/cardiology before adjusting her atorvastatin dose. A1c was 6.4, prediabetes, patient made aware, patient advised for heart healthy diet/exercise routine/lifestyle modification/close follow-up with PCP. Patient expressed understanding. MRI brain and US carotid were reviewed. Neurology evaluated and appreciate the recommendation. PT/OT evaluated. Patient is being discharged home with close follow-up with PCP/nephrology/cardiology. (2) KHUSHBOO (acute kidney injury): (3) CKD (chronic kidney disease), stage III: Cr: 1.9. Was 1.9 04/13/22 and previous baseline of 1.4 Status post IV fluid resuscitation, improving back to her baseline. Patient to follow-up with her PCP and likely will get renal function test in a week time. (4) Elevated troponin: Troponin: 16, chronic elevated troponin without acute changes on EKG No CP or SOB reported (5) Status post thoracic aortic aneurysm repair: Post op complication of pleural effusion and pericardial effusion History aortic dissection [place] type A s/p AAA repair in [place] on 01/07/22 and subsequent pericardial and pleural effusions Continue home torsemide, colchicine, prednisone (6) Hypertension: Stable Continue lisinopril, metoprolol tartrate, spironolactone, torsemide (7) Dyslipidemia: Continue atorvastatin (8) ANNABELLE (obstructive sleep apnea): CPAP HS (9) Hypothyroidism: Continue levothyroxine Full Code as per discussion with pt Follows with Dr Jovel for routine care Patient is being discharged home with following instructions at the point of discharge: Follow-up with your primary care physician within a week time and then you will likely need blood work CBC/CMP/magnesium level. Your cholesterol level [LDL was 109] was high while in hospital test, your atorvastatin needs to be atleast 40 Mg daily. But since you like to consult with your primary care/cardiology before increasing this medication dose, I recommend you bring this topic up with them when you visit them after discharge. Your A1c level was 6.4, this confirms prediabetes, advise you to follow a heart healthy diet and closely follow-up with your primary care physician for ongoing evaluation/management. You will likely need repeat A1c test in 3 months. Advised to maintain follow-up with your kidney doctor and heart doctor as an outpatient. Take your medications as prescribed. Discharge Exam GENERAL: Alert and oriented x3. NAD, on RA. Class III obese. HEENT: No pallor, no icterus. Pupils equal, round and reactive to light. Oral mucosa moist. NECK: No JVD, no neck masses. HEART: S1 and S2 heard. Regular rate and rhythm. No murmur, no gallop. RESPIRATORY SYSTEM: Normal AP diameter. No accessory muscle use. No wheezing, no crackles. ABDOMEN: Soft, bowel sounds present, nontender, no distention. CENTRAL NERVOUS SYSTEM: No facial droop. Speech is clear. Obeys simple commands. Moves extremities. EXTREMITIES: Trace BLE edema, no erythema seen. Updated Medication List Medication Instructions Recorded Confirmed Type levothyroxine 125 mcg tablet 125 mcg PO QAM 11/10/18 05/02/22 History levothyroxine 150 mcg tablet 150 mcg PO QAM 11/10/18 05/02/22 History lisinopril 10 mg tablet 10 mg PO QAM 11/10/18 05/02/22 History albuterol sulfate 90 mcg/actuation 2 puff inhalation Q4 PRN Wheezing 03/07/22 05/02/22 History aerosol inhaler aspirin 81 mg tablet,delayed 81 mg PO QAM 03/07/22 05/02/22 History release calcium carbonate 500 mg calcium 500 mg PO Q OTHER DAY 03/07/22 05/02/22 History (1,250 mg) chewable tablet (Calcium 500) fluticasone propionate 50 2 spray intranasal AMHS PRN 03/07/22 05/02/22 History mcg/actuation nasal Allergy Symptoms spray,suspension metoprolol tartrate 25 mg tablet 25 mg PO HS 03/07/22 05/02/22 History potassium chloride 10 mEq 20 meq PO QAM 03/07/22 05/02/22 History tablet,extended release(part/cryst) torsemide 20 mg tablet 20 mg PO QAM 03/07/22 05/02/22 History colchicine 0.6 mg tablet (Colcrys) 0.6 mg PO BID #60 tabs 03/10/22 05/02/22 Rx pantoprazole 40 mg tablet,delayed 40 mg PO BID #60 tabs 03/10/22 05/02/22 Rx release prednisone 5 mg tablet 5 mg PO UD #66 tabs 03/20/22 05/02/22 Rx atorvastatin 20 mg tablet 20 mg PO DAILY 05/02/22 05/02/22 History metoprolol tartrate 25 mg tablet 50 mg PO DAILY 05/02/22 05/02/22 History spironolactone 25 mg tablet 25 mg PO DAILY 05/02/22 05/02/22 History Hospital Stay Data Consultations 05/02/22 17:59 ED Decision to Admit Stat 05/03/22 08:00 Consult Neurology Routine Diagnostic Imagining Performed 05/02/22 17:19 CT head/brain wo con Stat 05/02/22 21:29 MR brain wo con Routine US carotid doppler BI Routine Pending Results Patient Have Any Pending Studies at Discharge: No Discharge Instructions Given to Patient (Per Discharging Provider) Follow-up with your primary care physician within a week time and then you will likely need blood work CBC/CMP/magnesium level. Your cholesterol level [LDL was 109] was high while in hospital test, your atorvastatin needs to be atleast 40 Mg daily. But since you like to consult with your primary care/cardiology before increasing this medication dose, I recommend you bring this topic up with them when you visit them after discharge. Your A1c level was 6.4, this confirms prediabetes, advise you to follow a heart healthy diet and closely follow-up with your primary care physician for ongoing evaluation/management. You will likely need repeat A1c test in 3 months. Advised to maintain follow-up with your kidney doctor and heart doctor as an outpatient. Take your medications as prescribed. Risk Factors for Stroke: You can reduce your chances of stroke by working with your medical provider to adopt a healthy lifestyle. Some specific ways to lower your chance of stroke are: * If you are a smoker, now is the time to stop smoking cigarettes * If you are diabetic, improve the control of your blood sugars * Avoid excessive amounts of alcohol * Control high blood pressure * Lose weight if you are overweight * Be sure to lead an active lifestyle * Eat a healthy diet low in salt, cholesterol and fat You should know about other risk factors for stroke that you are unable to control. These include: * Age 55 years or older * Male gender * Certain racial groups: , or / * Family History of Stroke, Mini stroke or Heart Attack * Sickle Cell Disease Follow Up: It is important for you to keep your follow up appointments with your medical provider. Who to Call and When: Medical Emergencies: Call 911 immediately if you experience any of the following warning signs and symptoms of Stroke: * Sudden numbness or weakness of the face, arm or leg, especially on one side of the body * Sudden confusion, trouble speaking or understanding * Sudden trouble seeing in one or both eyes * Sudden trouble walking, dizziness, loss of balance or coordination * Sudden severe headache with no cause Do not delay calling 911 if you experience any warning signs or symptoms of a stroke. Delay in seeking medical attention may affect what treatments can be given to you. . Total Time Total Time Spent Total Time Spent (In Minutes): 40
== END 2022-05-04 15:34 | disposition home or self-care (01) ==
LOC: ED 14:26 → 2N 18:32 → SUATTDRO 18:32 → INTOOBSV 18:32 → 2N 20:58